=== PATIENT | male | born 1940 | race Caucasian/White ===

== ENCOUNTER 2023-01-31 07:55 | Outpatient (RCR) | payer MEDICARE, OTHER, SELFPAY ==
--- NOTE | 2023-01-31 13:44 | PT.OPEX ---
PT [place] Outpatient Eval PT [facility] Outpatient Eval Start: 01/31/23 09:14 Freq: Status: Active Protocol: Document 01/31/23 09:15 CHRYSTAL (Rec: 01/31/23 09:16 CHRYSTAL [id number]) E-signed By Addison Roca DPT, MS Physical Therapy Outpatient Evaluation Insurance Information Recert Due Date 05/01/23 Insurance Name Medicare B,[employer] Medical Diagnosis Lesion of sciatic nerve, unspecified lower limb; trochanteric bursitis of L hip . Treating Diagnosis L hip pain, decreased L LE flexibility and ROM, L LE weakness, gait dysfunction, imbalance. Subjective Subjective Pt is an 82 y.o. male who presents to PT with c/o L hip, gluteal and LS pain of insidious origin ~6-8 months ago. Had L JOHANN surgery at the [facility] in April 2021 and did not have PT following surgery. Describes sxs as sharp, shooting pain in his L gluteus olga lidia area which are intermittent, coming and going randomly. Feeling great the past 2 days with high level of sxs after performing heavier lifting and after walking on uneven surfaces. Describes himself as very active performing yardwork, working on his cars and plane rarely sitting throughout the day. Recent radiograph found the femoral component of his JOHANN appears loose with radiolucent lines in all zones. PMH also includes LS OA. AGGR factors: walking, carrying objects, stair climbing, standing, sleeping on L side, uneven surfaces. ALLEV factors: movement, rest. 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 Tightness in his L hip musculature combined with L LE weakness and imbalance appear to be leading to elevated sxs , especially considering how active he is. Emphasized importance of not pushing activities into pain. Excellent response to stretching and strengthening exercises with resolution of sxs following. He will benefit from continued skilled therapy to address these limitations. Primary Functional Limitations Walking, carrying objects, stair climbing, standing, sleeping on L side, uneven surfaces. Plan of Care Rehabilitation Potential Excellent Physical Therapy Goals Short-term goals to be completed in 4 weeks: 1. Pt will report improved quality of sleep waking <2x per night due to L hip pain. 2. Pt will display improved L LE strength as evidenced by performing >12 SLR of good quality to transition to amb without an AD. Long-term goals to be completed in 10 weeks: 1. Pt will be independent and compliant with HEP 2. Pt will display improved mechanics going up<>down 12 stairs with a reciprocal pattern using 1 railing to safely reach his bedroom. 3. Pt will display improved L hip flex, ABD and ext strength of 5/5 to improve quality of gait and kristan to yardwork/ chores. 4. Pt will report >75% improvement in LEFS questionnaire to significantly improve tolerance to functional activities. Coordination/Communication With Referral Source Treatment Plan/Direct Interventions Joint Mobilization,Manual Therapy,Neuromuscular Re-ed, Therapeutic Exercises Frequency/Duration 1x per week for least 6-10 visits, decreasing visit frequency as able. Patient Will Be Discharged From Therapy Completion of LTG(s),Skills Plateau,Independent w/HEP, Independently Progressing Evaluation Billing Untimed Code Treatment Minutes 22 Complexity Moderate Certification Information Initial Certification Date 01/31/23 Ending Certification Date 05/01/23 Provider Signature Shows Agreement With POC & Medical Necessity Physician Signature & Date Requested Please Sign/Date Here Physician Comment/Change : Physician NPI Number #
== END 2023-05-31 23:59 | disposition home or self-care (01) ==
PROVIDERS: Visit Provider Orthopaedic Surgery
DX: M70.62 Trochanteric bursitis, left hip (principal); G57.00 Lesion of sciatic nerve, unspecified lower limb; M25.552 Pain in left hip; R26.89 Other abnormalities of gait and mobility; R26.81 Unsteadiness on feet; Z51.89 Encounter for other specified aftercare
CPT/HCPCS: 97110; 97162

== ENCOUNTER 2024-05-21 10:56 | Outpatient (CLI) | payer OTHER, SELFPAY ==
--- OUTSIDE RECORDS SUMMARY | 2024-05-21 10:59 | XMS_ITS | Clinical Summary ---
Author Organization [facility] Address [address] [place] [address] Care Team Providers Care Care Worker Name Role Phone Unavailable Primary Care Provider Unavailabl e Source Comments Patient records contain information from all sites at [facility]. For routine questions regarding patient records, call [phone] during business hours, M-F 8:00 AM - 5:00 PM Central Time. Record requests for emergency care only can be directed to [phone] at any time.[facility] Allergies No known active allergies Medications Medication Sig Dispensed Refills Start Date End Date Status aspirin [address] tablet Take 81 mg by mouth. 08/09/2022 Active atorvastatin (Lipitor) 80 mg tablet Take 1 tablet by mouth daily. 10/30/2013 Active metoprolol tartrate (Lopressor) 50 mg tablet Take 50 mg by mouth. 05/24/2023 Active Active Problems Problem Noted Date Diagnosed Date Primary Malignant Neoplasm Of Prostate Cancer Staging:Clinical stage from 03/08/2024:Stage IIB(cT1c, cN0, cM0, PSA: 8.4, Grade Group: 2) - Unsigned Encounters Date Type Department Care Team Description 05/21/2024 9:12 AM CDT Hospital Encounter Department of Radiation Oncology in [place], [place] [address] [place] [phone] Sergio Foster M.D. Primary Malignant Neoplasm Of Prostate (HCC) (Primary Dx); Pain Hip Left 05/16/2024 11:15 AM CDT - 05/16/2024 11:59 PM CDT Hospital Encounter Department of Radiology in [place], [place] [address] [place] [address] Jesika Bragg P.A.-C., M.S. Primary Malignant Neoplasm Of Prostate (HCC) Discharge Disposition: Home or Self Care 05/16/2024 10:14 AM CDT - 05/16/2024 11:14 AM CDT Hospital Encounter Department of Laboratory Medicine in [place], [place] [address] [place] [address] Jesika Bragg P.A.-C., M.S. Primary Malignant Neoplasm Of Prostate (HCC) Discharge Disposition: Home or Self Care 05/09/2024 10:05 AM CDT - 05/18/2024 2:17 PM CDT Hospital Encounter Department of Radiation Oncology in [address] [phone] Sergio Foster M.D. Primary Malignant Neoplasm Of Prostate (HCC) (Primary Dx) from Last 3 Months Immunizations Name Administration Dates Next Due HZV (ZOSTAVAX) 10/10/2009 Influenza Split 08/20/2013 PPSV23 09/09/2008 Td, (Adult) Unspecified 09/09/2006 Family History Medical History Relation Name Comments Colon cancer Paternal Grandfather Relation Name Status Comments Father Paternal Grandfather Social History Tobacco Use Types Packs/Day Years Used Date Smoking Tobacco: Former Cigarettes 0.3 10 1 801 - 8246 Pipe Smokeless Tobacco: Never Tobacco Cessation:Counseling Given: Not Answered Dental Answer Date Recorded Dental: Regular Dentist Unknown 04/26/20 Sex and Gender Information Value Date Recorded Sex Assigned at Not on file Gender Identity Not on file Sexual Orientation Not on file Last Filed Vital Signs Vital Sign Reading Time Taken Comments Blood Pressure 141/58 05/21/2024 9:38 AM CDT Pulse 62 05/21/2024 9:38 AM CDT Temperature 36.6 ??C (97.8 ??F) 05/21/2024 9:38 AM CD T Respiratory Rate - - Oxygen Saturation - - Inhaled Oxygen Concentration - - Weight 64.9 kg (143 lb 1.3 oz) 05/21/2024 9:38 A M CDT Height 164.3 cm (5' 4.69) 10/30/2013 10:[address] Body Mass Index - - Plan of Treatment Health Maintenance Due Date Last Done Comments Depression Screening (Annual PHQ-2) 10/10/2023 Fall Risk Screen (Annual) 10/10/2023 COVID-19 Vaccine (6 - 2022-2 4 season) 2023 08/12/2023, 07/06/2022, 07/29/2021, Additional history exists DTaP,Tdap,and Td Vaccines (2 - Td or Tdap) 05/15/2024 05/15/2014, 09/26/2006, 09/09/2006, Additional history exists Influenza Vaccine (#1) 2024 , 07/06/2022, 06/24/2021, Additional history exists Pneumococcal vaccine (65+ years) Completed 01/08/2017, 01/02/2016, 09/26/2008, Additional history exists Zoster Vaccines Completed 04/16/2019, 10/2018, 11/05/2009, Additional history exists Procedures Procedure Name Priority Date/Time Associated Diagnosis Comments PET CT SKULL TO THIGH PSMA RAD - Routine (most inpatients and all outpatients) 05/16/2024 12:58 PM CDT Primary Malignant Neoplasm Of Prostate (HCC) TESTOSTERONE, TOTAL BY MASS SPECROMETRY, S Routine 05/16/2024 10:34 AM CDT Primary Malignant Neoplasm Of Prostate (HCC) PROSTATE-SPECIFIC AG (PSA) DIAGNOSTIC, S Routine 05/16/2024 10:34 AM CDT Primary Malignant Neoplasm Of Prostate (HCC) from Last 3 Months Results * PET CT Skull to Thigh PSMA (05/16/2024 12:58 PM CDT) Anatomical Region Laterality Modality Body, Nuclear Medicine PET R ST LOS, PET ARZ LOS, Nuclear Medicine PET FLA LOS, Nuclear Medicine N/A Positron Emission Tomography (PET) Impressions 05/16/2024 1:27 PM CDT 1. ??No PSMA PET evidence for localized or metastatic prostate disease. Narrative 05/16/2024 1:27 PM CDT EXAM: PET CT SKULL TO THIGH PSMA COMPARISON: None. Correlation from MRI of the prostate 01/24/2024 INDICATION: Unfavorable intermediate risk prostate cancer, staging. Initial treatment strategy. The patient reports no recent vaccinations. FINDINGS: Head and neck: No abnormal areas of hypermetabolism are demonstrated in the head or neck. CHEST: No abnormal areas of hypermetabolism are demonstrated in the chest. Background internal control mediastinal uptake measures 1.78. Abdomen/pelvis: No abnormal areas of hypermetabolism are demonstrated in the abdomen or pelvis. Specifically no increased uptake is demonstrated in the prostate gland itself. Skeleton: No abnormal areas of hypermetabolism are demonstrated in the visualized axial or appendicular skeleton. Other: No pneumothorax. No acute airspace opacity is observed. No small bowel or colon obstruction or pneumatosis. RADIOPHARMACEUTICAL/MEDS: Route: intravenous piflufolastat F 18 injection (Pylarify F-18),9.9 millicurie Procedure Note Mohan Sin M.D. - 05/16/2024 EXAM: PET CT SKULL TO THIGH PSMA COMPARISON: None. Correlation from MRI of the prostate 01/24/2024 INDICATION: Unfavorable intermediate risk prostate cancer, staging.Initial treatment strategy. The patient reports no recent vaccinations. FINDINGS: Head and neck: No abnormal areas of hypermetabolism are demonstrated inthe head or neck. CHEST: No abnormal areas of hypermetabolism are demonstrated in the chest.Background internal control mediastinal uptake measures 1.78. Abdomen/pelvis: No abnormal areas of hypermetabolism are demonstrated inthe abdomen or pelvis. Specifically no increased uptake is demonstrated inthe prostate gland itself. Skeleton: No abnormal areas of hypermetabolism are demonstrated in thevisualized axial or appendicular skeleton. Other: No pneumothorax. No acute airspace opacity is observed. No smallbowel or colon obstruction or pneumatosis. RADIOPHARMACEUTICAL/MEDS: Route: intravenous piflufolastat F 18 injection (Pylarify F-18),9.9 millicurie IMPRESSION: 1. No PSMA PET evidence for localized or metastatic prostate disease. Jesika Bragg P.A.-C., M.S. [facility] PROCEDU RES * Testosterone, Total by Mass Spectrometry, Serum (05/16/2024 10:34 AM CDT) Testosterone, Total by Mass Spectrometry, Serum 538 240 - 950 ng/dL 05/20/2024 3:07 PM CDT [facility] Comment: ----ADDITIONAL INFORMATION---- Testing performed by Liquid Chromatography-Tandem Mass Spectrometry (LC-MS/MS). This test was developed and its performance characteristics determined by [facility] in a manner consistent with CLIA requirements. This test has not been cleared or approved by the U.S. Food and Drug Administration. Blood (Blood, Venous) 05/16/2024 10:34 AM CDT 05/17/2024 8:56 AM CDT Jesika Bragg P.A.-C. M.S. LAB BLOOD NON ADD-ON [facility] [address] [place] [address] [facility] [address] [place] [address] [place] [address] * (ABNORMAL) PSA (Prostate-Specific Antigen), Diagnostic (05/16/2024 10:34 AM CDT) Pathologist [facility] Prostate-Specific Ag 8.3(H) <=7.2 ng/mL 05/16/2024 11:36 AM CDT [facility] Comment: ----ADDITIONAL INFORMATION---- The testing method is an electrochemiluminescence assay manufactured by [employer] and performed on the Modular or Marissa system. Values obtained with different assay methods or kits may be different and cannot be used interchangeably. Test results cannot be interpreted as absolute evidence for the presence or absence of malignant disease. Blood (Blood, Venous) 05/16/2024 10:34 AM CDT 05/16/2024 11:02 AM CDT Jesika Bragg P.A.-C., M.S. LAB BLOOD ADD- ON [facility] [address] [place] [address], [facility] [address] [place] [address] from Last 3 Months
--- OUTSIDE RECORDS SUMMARY | 2024-05-21 10:59 | XMS_ITS ---
Author Organization [facility] Address [address] [place] [address] Care Team Providers Care Master Electrician Name Role Phone Unavailable Unavailable Unavailable Surgery Details Not on file Complications Check Surgery Details section. Procedure Estimated Blood Loss Check Surgery Details section. Procedure Findings Check Surgery Details section. Procedure Specimens Taken Check Surgery Details section.
--- OUTSIDE RECORDS SUMMARY | 2024-05-21 10:59 | XMS_ITS | Encounter Summary ---
Author Organization [facility] Address [address] [place] [address] Care Team Providers Care Rat Poisoner Name Role Phone Unavailable Primary Care Provider Unavailabl e Reason for Referral * Outpatient (Routine) - Authorized Specialty Diagnoses / Procedures Referred By Contac t Referred To Contact Radiation Oncology Sergio Foster M.D. [address] [place] [address] [facility] Region Referral ID Status Reason Start Date Expiration Date V isits Requested Visits Authorized [id number] Authorized 05/21/2024 11/20/2025 1 1 Scheduling Instructions After visit with Dr. Gage to see if patient can proceed with radiotherapy to the prostate * Outpatient (Routine) - Authorized Specialty Diagnoses / Procedures Referred By Contac t Referred To Contact Diagnoses Pain Hip Left Procedures DX Hip Left 2-3 Views Sergio Foster M.D. [address] [place] [address] [facility] Region Referral ID Status Reason Start Date Expiration Date V isits Requested Visits Authorized [id number] Authorized 05/21/2024 05/21/2025 1 1 * Outpatient (Routine) - Authorized Specialty Diagnoses / Procedures Referred By Contac t Referred To Contact Orthopedic Surgery Diagnoses Pain Hip Left Sergio Foster M.D. [address] [place] [address] Jean Marie Gage M.D. [address] [place] [address] Referral ID Status Reason Start Date Expiration Date V isits Requested Visits Authorized [id number] Authorized 05/21/2024 11/20/2025 1 1 * Outpatient (Routine) - Closed Specialty Diagnoses / Procedures Referred By Contac t Referred To Contact Radiation Oncology Jesika Bragg P.A.-C., M.SAdriano [address] [place] [phone] Sergio Foster M.D. [address] [place] [phone] Referral ID Status Reason Start Date Expiration Date Visits Re quested Visits Authorized [id number] Closed 05/09/2024 11/08/2025 1 1 Scheduling Instructions PSA, testosterone, and PSMA PET-CT prior at [facility] Reason for Visit * Outpatient (Routine) - Closed Specialty Diagnoses / Procedures Referred By Contac t Referred To Contact Radiation Oncology Jesika Bragg P.A.-C., M.S. [address] [place] [phone] Sergio Foster M.D. [address] [place] [phone] Referral ID Status Reason Start Date Expiration Date Visits Re quested Visits Authorized [id number] Closed 05/09/2024 11/08/2025 1 1 Encounter Details Date Type Department Care Team (Latest Contact Info) Description 05/21/2024 9:12 AM CDT Hospital Encounter Department of Radiation Oncology in [place], [place] [address] [place] [address] Sergio Foster M.D. [address] [place] [address] Primary Malignant Neoplasm Of Prostate (HCC) (Primary Dx); Pain Hip Left Social History Tobacco Use Types Packs/Day Years Used Date Smoking Tobacco: Former Cigarettes 0.3 10 1 956 1965 Pipe Smokeless Tobacco: Never Dental Answer Date Recorded Dental: Regular Dentist Unknown 04/26/20 Sex and Gender Information Value Date Recorded Sex Assigned at Not on file Gender Identity Not on file Sexual Orientation Not on file documented as of this encounter Last Filed Vital Signs Vital Sign Reading Time Taken Comments Blood Pressure 141/58 05/21/2024 9:38 AM CDT Pulse 62 05/21/2024 9:38 AM CDT Temperature 36.6 ??C (97.8 ??F) 05/21/2024 9:38 AM CD T Respiratory Rate - - Oxygen Saturation - - Inhaled Oxygen Concentration - - Weight 64.9 kg (143 lb 1.3 oz) 05/21/2024 9:38 A M CDT Height - - Body Mass Index - - documented in this encounter Plan of Treatment Scheduled Orders Name Type Priority Associated Diagnoses Orde r Schedule DX Hip Left 2-3 Views Imaging RAD - Routine (most inpatients and all outpatients) Pain Hip Left Expected: 05/21/2024, Expires: 08/21/2025 Scheduled Referrals Name Type Priority Associated Diagnoses Order Schedule Radiation Oncology office visit (clinic) Outpatient Referral Routine Once for 1 Occurrences starting 05/21/2024 until 05/21/2024 External referral physician (non-[facility]) Outpatient Referral Routine Pain Hip Left Ordered: 05/21/2024 Radiation Oncology office visit (clinic) Outpatient Referral Routine Expected: (Approximate), Expires: 05/21/2025 documented as of this encounter Visit Diagnoses Diagnosis Primary Malignant Neoplasm Of Prostate (HCC)- Primary Pain Hip Left documented in this encounter
--- OUTSIDE RECORDS SUMMARY | 2024-05-21 10:59 | XMS_ITS | Referral Summary ---
Author Organization [facility] Address [address] [place] [address] Care Team Providers Care Wafer Fabrication Operator Name Role Phone Unavailable Primary Care Provider Unavailabl e Source Comments Patient records contain information from all sites at [facility]. For routine questions regarding patient records, call [phone] during business hours, M-F 8:00 AM - 5:00 PM Central Time. Record requests for emergency care only can be directed to [phone] at any time.[facility] Encounters Date Type Department Care Team Description 05/21/2024 9:12 AM CDT Hospital Encounter Department of Radiation Oncology in [address] [address] Sergio Foster M.D. Primary Malignant Neoplasm Of Prostate (HCC) (Primary Dx); Pain Hip Left 05/09/2024 10:05 AM CDT - 05/18/2024 2:17 PM CDT Hospital Encounter Department of Radiation Oncology in [address] [address] Sergio Foster M.D. Primary Malignant Neoplasm Of Prostate (HCC) (Primary Dx) 05/16/2024 10:14 AM CDT - 05/16/2024 11:14 AM CDT Hospital Encounter Department of Laboratory Medicine in [place], [place] [address] [place] [phone] Jesika Bragg P.A.-C., M.S. Primary Malignant Neoplasm Of Prostate (HCC) Discharge Disposition: Home or Self Care 05/16/2024 11:15 AM CDT - 05/16/2024 11:59 PM CDT Hospital Encounter Department of Radiology in [place], [place] [address] [place] [address] Jesika Bragg P.A.-C., M.S. Primary Malignant Neoplasm Of Prostate (HCC) Discharge Disposition: Home or Self Care from Last 3 Months Allergies No known active allergies Medications Medication [...] PSA: 8.4, Grade Group: 2) - Unsigned Immunizations Name Administration Dates Next Due HZV (ZOSTAVAX) 10/10/2009 Influenza Split 08/20/2013 PPSV23 09/09/2008 Td, (Adult) Unspecified 09/09/2006 Social History Tobacco Use Types Packs/Day Years Used Date Smoking Tobacco: Former Cigarettes 0.3 10 1 336 - 4042 Pipe Smokeless Tobacco: Never Tobacco Cessation:Counseling Given: [...] Mass Index - - Plan of Treatment Not on file Procedures Procedure Name Priority Date/Time Associated Diagnosis [...] localized or metastatic prostate disease. Jesika Bragg P.A.-C. M.S. [facility] [place] PROCEDU RES * Testosterone, Total by Mass Spectrometry, Serum (05/16/2024 10:34 AM CDT) [facility] Testosterone, Total by Mass Spectrometry, Serum 538 240 - 950 ng/dL 05/20/2024 3:07 PM CDT [facility] Comment: ----ADDITIONAL INFORMATION---- Testing performed by Liquid Chromatography-Tandem Mass Spectrometry (LC-MS/MS). This test was developed and its performance characteristics determined by [facility] in a manner consistent with CLIA requirements. This test has not been cleared or approved by the U.S. Food and Drug Administration. Blood (Blood, Venous) 05/16/2024 10:34 AM CDT 05/17/2024 8:56 AM CDT Jesika Bragg P.A.-C., M.S. LAB BLOOD NON ADD-ON [facility] [address] [place] [address] [facility] [address] [place] [address] [place] [address] * (ABNORMAL) PSA (Prostate-Specific Antigen), Diagnostic (05/16/2024 10:34 AM CDT) Prostate-Specific Ag 8.3(H) <=7.2 ng/mL 05/16/2024 11:36 AM CDT [facility] Comment: ----ADDITIONAL INFORMATION---- The testing method is an electrochemiluminescence assay manufactured by [employer] and performed on the Modular or Marissa system. Values obtained with different assay methods or kits may be different and cannot be used interchangeably. Test results cannot be interpreted as absolute evidence for the presence or absence of malignant disease. Blood (Blood, Venous) 05/16/2024 10:34 AM CDT 05/16/2024 11:02 AM CDT Jeiska Bragg P.A.-C., M.S. LAB BLOOD ADD- ON [facility] [address] [place] [address], [facility] NPRG [facility] [address] [place] [address] from Last 3 Months
--- OUTSIDE RECORDS SUMMARY | 2024-05-21 11:00 | XMS_ITS | Encounter Summary ---
Author Organization [facility] Address [address] [place] [id number] Care Team Providers Care Quality System Manager Name Role Phone Unavailable Primary Care Provider Unavailabl e Reason for Referral * Outpatient (Routine) - Closed Specialty Diagnoses / Procedures Referred By William blanca Referred To Contact Radiation Oncology Jesika Bragg P.A.-C., M.S. [address] [place] [phone] Sergio Foster M.D. [address] [place] [phone] Referral ID Status Reason Start Date Expiration Date Visits Re quested Visits Authorized [id number] Closed 05/09/2024 11/08/2025 1 1 Scheduling Instructions PSA, testosterone, and PSMA PET-CT prior at [facility] * MRI/CAT/PET Scan (Routine) - Closed Specialty Diagnoses / Procedures Referred By William t Referred To Contact Diagnoses Primary Malignant Neoplasm Of Prostate (HCC) Procedures PET CT Skull to Thigh PSMA Jesika Bragg P.A.-C., M.S. [address] [place] [phone] [facility] Region Referral ID Status Reason Start Date Expiration Date Visits Re quested Visits Authorized [id number] Closed 05/09/2024 05/09/2025 1 1 Reason for Visit * Appointment Request (Routine) - Closed Specialty Diagnoses / Procedures Referred By William blanca Referred To Contact Radiation Oncology Diagnoses Primary Malignant Neoplasm Of Prostate (HCC) Tonio Bhatt M.D. [address] [phone] Referral ID Status Reason Start Date Expiration Date Visits Re quested Visits Authorized [id number] Closed 04/26/2024 04/26/2025 1 1 Encounter Details Date Type Department Care Team (Latest Contact Info) Description 05/09/2024 10:05 AM CDT - 05/18/2024 2:17 PM CDT Hospital Encounter Department of Radiation Oncology in [place], [place] [address] [place] [phone] Sergio Foster M.D. [address] [place] [phone] Primary Malignant Neoplasm Of Prostate (HCC) (Primary Dx) Social History Tobacco Use Types Packs/Day Years Used Date Smoking Tobacco: Former Cigarettes 0.3 10 1 290 - 8476 Pipe Smokeless Tobacco: Never Tobacco Cessation:Counseling Given: Not Answered Dental Answer Date Recorded Dental: Regular Dentist Unknown 04/26/20 Sex and Gender Information Value Date Recorded Sex Assigned at Not on file Gender Identity Not on file Sexual Orientation Not on file documented as of this encounter Last Filed Vital Signs Vital Sign Reading Time Taken Comments Blood Pressure 125/59 05/09/2024 10:24 AM CDT Pulse 71 05/09/2024 10:24 AM CDT Temperature 36.6 ??C (97.9 ??F) 05/09/2024 10:24 AM C DT Respiratory Rate - - Oxygen Saturation - - Inhaled Oxygen Concentration - - Weight 64.1 kg (141 lb 5 oz) 05/09/2024 10:24 AM CDT Height - - Body Mass Index - - documented in this encounter Medications at Time of Discharge Medication Sig Dispensed Refills Start Date End Date aspirin [address] tablet Take 81 mg by mouth. 2 atorvastatin (Lipitor) 80 mg tablet Take 1 tablet by mouth daily. 10/30/2013 metoprolol tartrate (Lopressor) 50 mg tablet Take 50 mg by mouth. 05/24/20 23 documented as of this encounter Consult Notes * Jesika Bragg P.A.-C., M.S. - 05/09/2024 10:30 AM CDT SUBJECTIVE REQUESTING PROVIDER Tonio Bhatt M.D. CHIEF COMPLAINT/REASON FOR CONSULT 1. Primary Malignant Neoplasm Of Prostate (HCC) SUPERVISED BY: Sergio Foster M.D. ([phone]) HISTORY OF PRESENT ILLNESS Mr. Rudy May is an 83-year-old male with prostate cancer, who presents today for an opinion regarding the role of radiation therapy in the management of the patient's disease. His oncologic history is as follows: Oncology History Primary Malignant Neoplasm Of Prostate (HCC) 09/26/2018 Other 09/26/2018: PSA 1.93 ng/mL 09/13/2022: PSA 5.15 ng/mL 06/10/2023: PSA 6.55 ng/mL 08/29/2023: PSA 6.43 ng/mL 11/29/2023: PSA 8.37 ng/mL 01/04/2024 Other Urology appointment with Dr. Tonio Bhatt. LENA demonstrated a moderately enlarged prostate with a firm anatomic ridge along the left lateral gland tracking down to the apex, indeterminate, no obvious nodules. Recommended proceeding with a prostate MRI. 01/24/2024 Critical Imaging MR Prostate Impression: 1. PI-RADS 5 lesion in the right peripheral zone. Estimated volume = 36 cc. 2.0 x 1.2 x 1.2 cm lesion in the right peripheral zone at the level of the apex at the 6 to 7 o`clock position shows decreased ADC and increased DWI signal. PI- RADS version 2 classification = 5. suspicious for prostate cancer. No extracapsular extension or seminal vesicle invasion. No cori-prostatic or pelvic side wall lymph nodes. No other bony or soft tissue abnormalities identified. 03/08/2024 Biopsy/Pathology Prostate biopsy was performed by Dr. Bhatt. A. Left prostate biopsy Adenocarcinoma of prostate Marquette Score 3+4=7 Involving 20-85% of the length of the cores Perineural Invasion Not Seen B. Right prostate biopsy Adenocarcinoma of prostate Yesika Score 3+4=7 Involving 40-80% of the length of the cores Perineural Invasion Not Seen PIN4 staining shows negative basal markers with positive p504s C. Lesion 1 Adenocarcinoma of prostate Yesika Score 3+3=6 Involving 75-80% of the length of two cores Perineural Invasion Not Seen 12/12 cores positive (per [facility]) 04/02/[address] 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 Management options were discussed including active surveillance, radical prostatectomy, radiation therapy, cryotherapy, and androgen deprivation therapy. The patient was interested in external beam radiation. Referral to Radiation Oncology in [place]. INTERVAL HISTORY: The patient was seen and examined today with Dr. Foster. The patient reports good energy. He stays active taking care of the yard and gardening. He reports good urination overall, but did comment on the stream being a little slower. He feels that he empties his bladder well. He denies urinary incontinence, dysuria, hematuria, or nocturia. He averages onebowel movement per day. He reports chronic left hip pain that comes and goes. He has had previous left hip surgery. He denies new bone pain. He reports pre-existing erectile dysfunction. The patient reports memory loss that has gotten worse over the years. He reports that he still does everything on his own. He denies any situations where he has gotten lost and hasn't been able to find his way tohis destination. The patient denies a history of prior radiation therapy, connective tissue disorders, or inflammatory bowel disease. His ECOG performance status is 1. PATIENT COMPLETED QUESTIONNAIRES: AUA 05/09/2024: 6 (3, 1, 0, 1, 0, 0, 1) IIEF-5 05/09/2024: 7 (2, 2, 1, 1, 1) - severe ED REVIEW OF SYSTEMS Review of systems was negative except as documented above. MEDICAL HISTORY Past Medical History: Diagnosis Date Benign Prostatic Hyperplasia Without Obstruction Coronary Artery Disease NOS Dysfunction Erectile Gastroesophageal Reflux Disease Hemorrhoids Internal Hernia Inguinal Bilateral Hyperlipidemia Impaired Glucose Tolerance Loss Memory Short Term Primary Malignant Neoplasm Of Prostate (HCC) Stenosis Carotid Artery Left SURGICAL HISTORY Past Surgical History: Procedure Laterality Date INGUINAL HERNIA REPAIR Bilateral 11/29/2022 ROTATOR CUFF REPAIR Left TOTAL HIP ARTHROPLASTY Left FAMILY HISTORY Family History Problem Relation Name Age of Onset Colon cancer Paternal Grandfather SOCIAL HISTORY Social History Socioeconomic History Marital status: Spouse name: Kesha Number of children: 2 Tobacco Use Smoking status: Former Current packs/day: 0.00 Average packs/day: 0.3 packs/day for 10.0 years (3.0 ttl pk-yrs) Types: Cigarettes, Pipe Start date: 1955 Quit date: 1965 Years since quittin.6 Smokeless tobacco: Never Social History Narrative He is to his , Kesha. They have 2 children, 9 grandchildren, and 2 great-grandchildren.They live in [place], [place] at the [facility] and he has an airplane. 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 He is a . OBJECTIVE BP 125/59 (BP Location: Right arm, Patient Position: Sitting, Cuff Size: Regular) Pulse 71 Temp36.6 ??C (Temporal) Wt 64.1 kg PHYSICAL EXAMINATION General: Alert and oriented, in no apparent distress. The patient demonstrated difficulty with memory throughout the encounter today. He answered the majority of questions independently. The patient is here today with his , Kesha, who assisted him in answering some questions or correcting his answers if they were not accurate. Heart: Regular rate and rhythm. Lungs: Clear to auscultation bilaterally. ASSESSMENT / PLAN #1 Stage IIB (cT1c, cN0, cM0, PSA: 8.4, Grade Group: 2) adenocarcinoma of the prostate #2 Memory loss I had a discussion with the patient and his regarding his prostate cancer diagnosis. We reviewed his oncologic history as detailed above. We discussed that he has unfavorable intermediate risk prostate cancer. We reviewed the NCCN guidelines. We discussed the recommendation for additional evaluation with a PSMA PET-CT scan. We also discussed the risks, benefits, and alternatives of radiotherapy in this setting. Dr. Foster offered radiation therapy treatment options including external beam radiation therapy in 20 or 26fractions or stereotactic body radiation therapy in 5 fractions. We discussed fiducial markers and rectal spacer placement, which would be required with SBRT treatment. In addition, he recommended androgen deprivation therapy for 4-6 months, which could be considered optional. We discussed that treatment recommendations could change depending on the result of the PSMA PET-CT scan. I discussed the logistics and provided an overview of the acute side effects of radiotherapy today.The acute side effects are common and include, but are not limited to, urinary frequency and urgency, dysuria, obstruction, hematuria, urinary incontinence, bowel frequency and urgency, diarrhea, gaseous bloating and discomfort, hemorrhoidal bleeding/irritation, erectile dysfunction, radiation dermatitis, loss of pubic hair, and fatigue. I also discussed the side effects of androgen deprivation therapy, which include, but are not limited to, hot flashes, fatigue, bone loss with prolonged use, mood changes, gynecomastia, loss of muscle strength and power, increased risk of cardiovascular events, increased risk of dementia/Alzheimer's disease, and complete loss of erectile function until his testosterone levels normalize. The patient was provided with a written summary of recommendations. Iexplained that side effects of radiation treatment would be reviewed again and in more detail priorto making any treatment decisions. His questions were answered to his verbalized satisfaction. We reviewed recommendations for next steps including PSA and testosterone lab work and a PSMA PET-CT scan. The patient was agreeable to have the lab work and imaging done at [facility] and orders were placed. We also ordered for a return visit to be scheduled here following the testing to review the results. Dr. Foster also met with the patient today, please see his attestation for details. The patient was provided with our contact information. He will contact us with questions or concerns. He verbally expressed his understanding of the plan. EDUCATION: Ready to learn, the patient demonstrated difficulty with memory throughout the encounter today, no other learning barriers were identified; learning preferences include listening. Explained diagnosisand treatment plan; patient expressed understanding of the content. PRIMARY PROVIDER Joey Lopez M.D. and Dr. Cece Baig at the DC in [place] I personally spent 55 minutes in care of the patient today. Time includes both non face to face andface to face patient care. Signed by: Jesika Bragg P.A.-C., M.S. 05/09/2024 12:49 PM CDT [facility] [address] [place] [address] Associated attestation - Sergio Foster M.D. - 05/18/2024 2:13 PM CDT I saw and evaluated the patient and participated in the alanis portions of the service. I reviewed thedocumentation of Jesika Bragg P.A.-C. and agree with the findings and plan. Mr. Rudy May is an 83 y.o. male with unfavorable intermediate risk, stage IIB (cT1c, cN0, cM0, PSA: 8.4, Grade Group: 2) adenocarcinoma of the prostate. We are asked by Dr. Bhatt to evaluate the patient for radiotherapy. His oncologic history is well-detailed in Ms. Bragg's note. In brief, PSA of 8.37 ng/mL on November 29, 2023 prompted a consultation with Dr. Bhatt on January 04, 2024. Digital rectal exam revealed a palpable ridge along the left lateral gland. MRI of the prostate on January 24, 2024 revealed a 2.0 cm, PI-RADS 5 lesion in the right peripheral zone at the apex. There was no extracapsular extension, seminal vesicle invasion, suspicious lymph nodes, or worrisome bone lesions. Prostate biopsy by Dr. Bhatt on March 08, 2024 revealed Yesika 3 + 4 disease in the left and the right as well as Marquette 3+ 3 disease in the MRI guided biopsy of the lesion. All 12 biopsy cores of 12 were positive. The patient reports some slowness of stream but no other urinary issues with no incontinence. Typically has 1 bowel movement per day. He has had history is was short-term memory for several years that are slowly getting worse.. The patient's ECOG performance status is 1. OBJECTIVE BP 125/59 (BP Location: Right arm, Patient Position: Sitting, Cuff Size: Regular) Pulse 71 Temp36.6 ??C (Temporal) Wt 64.1 kg PHYSICAL EXAM General: Patient is awake, alert, and oriented to person, place, and time. No apparent distress. The patient is here today with his Kesha. Remainder is as per Ms. Bragg's note. DIAGNOSTICS I reviewed the patient's pathology reports and imaging. ASSESSMENT / PLAN #1 Stage IIB (cT1c, cN0, cM0, PSA: 8.4, Grade Group: 2) adenocarcinoma of the prostate #2 Memory loss/dementia I had a detailed discussion with the patient and his regarding the risks, benefits, and alternatives of radiotherapy in this setting. I consulted the NCCN guidelines in formulating my recommendations and reviewed these with him. The patient has already discussed prostatectomy with Dr. Bhatt;hence, I focused my discussion on radiotherapy options. These include: 1. External beam radiotherapy alone to a dose of 60 Gy in 20 fractions or 70.2 Gy in 26 fractions utilizing IMRT; 2. Stereotactic body radiation therapy to a dose of 36.25 to 40 Gy in 5 fractions. I do not recommend brachytherapy given his age. Given his unfavorable-intermediate risk disease, I would typically recommend 4-6 months of androgendeprivation therapy. However, his could certainly worsen his memory difficulties. Because of that, I do think that it is optional. We will obtain a PSMA PET/CT scan to rule out other areas of disease. We discussed the use of a Hydrogel spacer. I discussed the logistics as well as the acute and chronic side effects associated with treatment in detail. For a complete listing of these, please see 's note. After this discussion, I provided the patient with a written summary of my recommendations. His questions and those of his spouse were answered to their verbalized satisfaction. The patient verbally stated that he would like to proceed with treatment. He will return after a PSA, testosterone level,and PSMA PET/CT scan at [facility] discuss the results and a finalize his plan of care. My thanks to Drs. Bhatt, Jovanni, and John for the opportunity to participate in this patient's care. I have spent 40 minutes caring for this patient including [id number]-ts-[id number] and ont-eask-bl-face time Signed by: Sergio Foster M.D. 05/18/24 2:13 PM CDT [facility] [place] documented in this encounter Miscellaneous Notes * Addendum Note - Irina Martines C.NAdrianoA. - 05/09/2024 10:30 AM CDTEncounter addended by: Irina Martines C.NPretty on: 05/21/2024 7:09 AM Actions taken: Letter saved documented in this encounter Plan of Treatment Scheduled Referrals Name Type Priority Associated Diagnoses Orde r Schedule Radiation Oncology office visit (clinic) Outpatient Referral Routine Expected: 05/23/2024, Expires: 08/09/2025 documented as of this encounter Results * PET CT Skull to Thigh [...] metastatic prostate disease. Jesika Bragg P.A.-C. M.S. [facility] PROCEDU RES * Testosterone, Total by Mass Spectrometry, Serum (05/16/2024 10:34 AM CDT) Pathologist [facility] Testosterone, Total by Mass Spectrometry, Serum 538 240 - 950 ng/dL 05/20/2024 3:07 PM CDT [facility] Comment: ----ADDITIONAL INFORMATION---- Testing performed by Liquid Chromatography-Tandem Mass Spectrometry (LC-MS/MS). This test was developed and its performance characteristics determined by [facility] in a manner consistent with CLIA requirements. This test has not been cleared or approved by the U.S. Food and Drug Administration. Blood (Blood, Venous) 05/16/2024 10:34 AM CDT 05/17/2024 8:56 AM CDT Jesika Bragg P.A.-C., M.S. LAB BLOOD NON ADD-ON [facility] [address] [place] [address] [facility] [address] [place] [address] [place] [address] * (ABNORMAL) PSA (Prostate-Specific Antigen), Diagnostic (05/16/2024 [...] Bragg P.A.-C., M.S. LAB BLOOD ADD- ON [facility] [address] [place] [address], [facility] [address] [place] [address] documented in this encounter Visit Diagnoses Diagnosis Primary Malignant Neoplasm Of Prostate (HCC)- Primary Primary Malignant Neoplasm Of Prostate (HCC) documented in this encounter
--- OUTSIDE RECORDS SUMMARY | 2024-05-21 11:00 | XMS_ITS | Encounter Summary ---
Author Name [facility] Organization [facility] Address [address] [place] [address] Care Team Providers Care Litigator Name Role Phone GERRY FELICIANO Primary Care Provider Unavaila ble Insurance Providers: All historical and current Section Date Range: From patient's date of to the date document was created. This section includes the names of all active insurance providers for the patient. Insurance Provider Type of Coverage Plan Name Start of Policy Coverage End of Policy Coverage Group Number Member ID Insurance Provider's Telephone Number Policy Dia's Name Patient's Relationship to Policy Dia [employer] ([facility]) MEDICARE ADVANTAGE MCR ([facility]) Oct 10, 2021 [id number] KLEPPERIC H,ARAMIS PATIENT HUMANA MCR ([facility]) MEDICARE [facility] ([facility]) Oct 10, 2017 [id number] KLEPPERIC H,ARAMIS PATIENT HUMANA MCR ([facility]) MEDICARE [facility] ([facility]) Oct 10, 2017 [id number] KLEPPERIC H,ARAMIS PATIENT MEDICA MCR ([facility]) MEDICARE ADVANTAGE MCR ([facility]) Oct 10, 2022 [id number] KLEPPERIC H,ARAMIS PATIENT Selected Encounter This section includes the information on record at [place] for the Encounter. Date/Time Encounter Type Encounter Description Reason Provider Source Aug 09, 2023 09:00 AM OFFICE O/P EST MOD 30-39 MIN PRIMARY CARE/MEDICINE ICD-10-CM Z00.8 Encounter for other general examination KATHRYN FELICIANO E Encounter Template Text not used by [place] Assessments - Encounter Diagnoses This section includes the primary and secondary diagnoses documented for the Encounter. Date/Time Primary/Secondary Diagnosis Diagnosis Name Provider Source Aug 09, 2023 09:38 AM PRIMARY Encounter for other general examination KATHRYN FELICIANO [facility] Aug 09, 2023 09:38 AM SECONDARY Essential (primary) hypertension KATHRYN FELICIANO [facility] Aug 09, 2023 09:38 AM SECONDARY Hyperlipidemia, unspecified KATHRYN FELICIANO Plan of Treatment: Future Appointments (+ 6 months) and Future Tests (+/- 45 days) The Plan of Treatment section includes future care activities for the patient from all [place] treatmentfacilities. This section includes future appointments and future orders which are active, pending or scheduled. Future Appointments This section includes appointments that were scheduled to occur 6 months from the date of the Encounter, up to a maximum of 20 appointments. The data comes from all [place] treatment facilities. Appointment Date/Time Appointment Type Appointme nt Facility Name Aug 12, 2023 01:00 PM AMBULATORY - NONE [facility] Lab Results: +/- 30 days of the encounter This section includes the Chemistry and Hematology Lab Results on record with [place] for the patient. Radiology Reports and Pathology Reports are provided separately, in subsequent sections. Lab Results This section contains the Chemistry/Hematology Results that were resulted 30 days before or 30 daysafter the date of the Encounter. Date/Time Source Result Type Result - Unit Interpretation Reference Range Comment Aug 09, 2023 09:36 AM TONY HIGUERA COMPREHENSIVE METABOLIC PANEL+MG Specimen Type: PLASMA No comment entered. Ordering Provider: KATHRYN FELICIANO Report Released Date/Time: Aug 09, 2023 09:29 AM Reporting Lab: [facility] [id number] Performing Lab: [facility] [id number] CREATININE 0.8 mg/dL 0.7-1.2 UREA NITROGEN 16 mg/dL 8-26 GLUCOSE 136 mg/dL H 70-100 SODIUM 140 mmol/L 136-145 POTASSIUM 4.2 mmol/L 3.5-5.1 CHLORIDE 108 mmol/L H 98-107 CO2 24 mmol/L 22-29 CALCIUM 9.1 mg/dL 8.4-10.2 PROTEIN,TOTAL 6.4 g/dL 6.0-8.3 ALBUMIN 3.9 g/dL 3.5-5.2 BILIRUBIN, TOTAL 0.9 mg/dL 0.2-1.2 MAGNESIUM 1.8 mg/dL 1.6-2.6 ANION GAP 8 mmol/L 5-15 ALKALINE PHOSPHATASE 71 U/L 40-150 ALT/SGPT 20 U/L <55 AST/SGOT 23 U/L <34 .CREAT EGFR(CKD-EPI) 88 >60 Aug 09, 2023 09:36 AM [facility] CBC & DIFF Specimen Type: BLOOD Comment: Automated Differential Performed Ordering Provider: KATHRYN FELICIANO Report Released Date/Time: Aug 09, 2023 09:29 AM Reporting Lab: [facility] [id number] Performing Lab: [facility] [id number] WBC 5.68 10*3/uL 4.0-11.0 RBC 4.63 10*6/uL 4.6-6.2 HGB 15.5 g/dL 13.5-17.9 HCT 45.3 41-54 MCV 97.8 fL 80-100 MCH 33.5 pg H 27-33 MCHC 34.2 g/dL 32.0-37.5 PLT 191 10*3/uL 150-400 MPV 9.4 fL 7.4-10.4 NEUT 62.9 40.0-80.0 LYMPHS 27.6 15.0-45.0 MONO 7.4 2.0-12.0 EOSINO 0.7 0.0-6.0 BASO 0.7 0.0-2.0 RDW 12.5 11.5-14.5 ABS LYMPH 1.57 10*3/uL 1.0-4.0 ABS MONO 0.42 10*3/uL 0.1-1.0 ABS NEUT 3.57 10*3/uL 2.0-7.7 ABS EOS 0.04 10*3/uL 0-0.5 ABS BASO 0.04 10*3/uL 0-0.2 IG(META,MYELO,P RO) 0.7 ABS IMMATURE GRAN 0.04 10*3/uL 0-0.1 Vital Signs: All taken on the encounter date This section contains inpatient and outpatient Vital Signs collected on the date of the Encounter. Date/Time Temperature Pulse Blood Pressure Respiratory Rate SP02 Pain Height Weight Body Mass Index Source Aug 09, 2023 09:15 AM 98 F 67 /min 131/65 mm[Hg] 16 /min 96 % 0 64.5 in 147 lb 25 [facility] Social History: Smoking Status (Most current) and Tobacco Use (All prior to encounter date) This section includes the most current, and the historical, smoking and tobacco- related health factors from the [place] facility where the Encounter took place. Current Smoking Status This section includes the most current smoking, or tobacco-related health factor, from the [place] facility where the Encounter took place. Date/Time Current Smoking Status Comment Facil ity Aug 09, 2023 09:00 AM VA-TOBACCO NEVER USED [facility] Tobacco Use History This section includes a history of the smoking, or tobacco-related health factors, that were collected on or before the date of the Encounter. The data comes from the [place] facility where the Encounter took place. Date/Time Smoking Status/Tobacco Use Comment F acility Aug 09, 2022 09:30 AM VA-TOBACCO FORMER USER [facility] Aug 09, 2022 09:30 AM VA-TOBACCO QUIT 15 YRS OR MORE [facility] Jan 10, 2019 10:36 AM VA-TOBACCO FORMER USER [facility] Jan 10, 2019 10:36 AM VA-TOBACCO QUIT 15 YRS OR MORE [facility] February 10, 2018 09:26 AM FORMER TOBACCO USER 7Y OR GREATE R [facility] February 15, 2017 09:06 AM FORMER TOBACCO USER 7Y OR GREATE R [facility] Jan 02, 2016 04:35 AM FORMER TOBACCO USER 7Y OR GREATE R [facility] February 17, 2015 06:49 AM FORMER TOBACCO USER 7Y OR GREATE R [facility] Advance Directives: All historical and current Section Date Range: From patient's date of to the date document was created. This section includes ALL of a patient's completed or amended VA Advance and Rescinded Directives. The entries below indicate that a directive exists for the patient, but an actual copy is not included with this document. The data comes from all [place] facilities. Date Advance Directives Provider Source May 16, 2019 ADVANCE DIRECTIVE [facility] May 16, 2019 ADVANCE DIRECTIVE DISCUSSION [facility] Oct 20, 2015 CLINICAL WARNING [facility] Encounter Notes: All associated encounter notes This section contains the clinical notes associated to the Encounter. Date/Time Encounter Note(s) Provider Source Aug 10, 2023 08:36 AM LETTERS: LOCAL TITLE: FOLLOW UP RESULTS LETTER STANDARD TITLE: LETTERS DATE OF NOTE: AUG 10, 2023@08:36 ENTRY DATE: AUG 10, 2023@08:36:53 AUTHOR: GERRY FELICIANO COSIGNER: URGENCY: STATUS: COMPLETED [facility] [address] [place] [address] Aug [facility]AMIS YANELY [facility] [address] [facility] [id number] Dear [place]: I am writing to inform you of the results of testing that you had done recently at the [facility]. - Complete Blood Count (red/white blood cell counts and platelets) White count: WBC 5.68 (08/09/23) (normal is 4.0-11.0) Hemoglobin: HGB 15.5 (08/09/23) (normal Male is 13.5-17.9; Female is 11.5-16) Hematocrit: HCT 45.3 (08/09/23) (normal Male is 41-54; Female is 34.5- 48) Platelets: PLT 191 (08/09/23) (normal is 150-400) - Electrolytes including sodium and potassium SODIUM 140 (08/09/23) (normal is 136-145) POTASSIUM 4.2 (08/09/23) (normal is 3.5-5.1) - Calcium CALCIUM 9.1 (08/09/23) (normal is 8.5-10.1) - Kidney function CREATININE 0.8 (08/09/23)(normal Male = less than 1.2; normal Female = less than 1.0)) UREA NITROGEN 16 (08/09/23) (normal Male is 8-26; normal Female is 10- 20) - Blood Sugar GLUCOSE 136 H (08/09/23) (normal is 70 - 100 if fasting) - Liver function Tests AST/SGOT 23 (08/09/23) (normal 15-37) ALT/SGPT 20 (08/09/23) (normal 13-61) ALK PHOSPHATASE 71 (08/09/23) (normal 45-117) BILIRUBIN, TOTAL 0.9 (08/09/23) (normal 0.2-1.0) - Hemoglobin A1C (normal 4.0-6.0) Collection DT Spec HGBA1C 08/09/2022 10:36 BLOOD 5.8 12/26/2020 10:06 BLOOD 5.9 02/07/2019 10:45 BLOOD 5.9 Additional Comments: Everythign looks good. If you have any further questions or problems, please contact our nursing staff or provider at the following number: [phone]. Sincerely, GERRY FELICIANO PHYSICIAN [facility] Aug 09, 2023 09:38 AM MEDICATION MGT NOT E: LOCAL TITLE: MEDICATION RECONCILIATION NOTE STANDARD TITLE: MEDICATION MGT NOTE DATE OF NOTE: AUG 09, 2023@09:38 ENTRY DATE: AUG 09, 2023@09:38:25 AUTHOR: GERRY FELICIANO EXP COSIGNER: URGENCY: STATUS: COMPLETED MEDICATION RECONCILIATION Active Outpatient Medications (excluding Supplies): Outpatient Medications Status 1) ATORVASTATIN CALCIUM 80MG TAB TAKE ONE-HALF TABLET BY ACTIVE MOUTH EVERY DAY 2) METOPROLOL TARTRATE 50MG TAB TAKE ONE TABLET BY MOUTH ACTIVE TWICE A DAY FOR BLOOD PRESSURE AND HEART RHYTHM Non-VA Medications Status 1) Non-VA ASPIRIN 81MG EC TAB 81MG MOUTH ACTIVE 3 Total Medications Medications listed above are accurate and should continue as ordered. /zander/ GERRY FELICIANO PHYSICIAN Signed: 08/09/2023 09:38 GERRY FELICIANO [facility] Aug 09, 2023 09:24 AM [facility] NOTE: LOCAL TITLE: [facility] NURSING PROGRESS NOTE STANDARD TITLE: PRIMARY CARE NURSING NOTE DATE OF NOTE: AUG 09, 2023@09:24 ENTRY DATE: AUG 09, 2023@09:24:55 AUTHOR: ARMIDA PAYNE EXP COSIGNER: URGENCY: STATUS: COMPLETED TYPE OF VISIT: Appointment Check In Type of appointment: In-person appointment REASON FOR VISIT: Annual ALLERGIES: Patient has answered NKA VITAL SIGNS: Blood Pressure: 131/65 (08/09/2023 09:15) Pulse: 67 (08/09/2023 09:15) Respiration: 16 (08/09/2023 09:15) Temperature: 98 F [36.7 C] (08/09/2023 09:15) Weight: 147 lb [66.68 kg] (08/09/2023 09:15) Height: 64.5 in [163.8 cm] (08/09/2023 09:15) BMI: 24.9 O2 Sat: 96% (08/09/2023 09:15) Pain: 0 (08/09/2023 09:15) PAIN SCREEN: Patient is having significant pain that they would like to talk to their provider about today. Old (Chronic) (began more than 6 months ago) Patient states their average pain this past week is 5 Patient states the average number on how the chronic pain affects their enjoyment of life the past week is 5 Patient states during the past week the average number on how the pain has interfered with their general activity is 5 MEDICATION Active Outpatient Medications (including Supplies): ATORVASTATIN CALCIUM 80MG TAB TAKE ONE-HALF TABLET BY ACTIVE MOUTH EVERY DAY METOPROLOL TARTRATE 50MG TAB TAKE ONE TABLET BY MOUTH ACTIVE TWICE A DAY FOR BLOOD PRESSURE AND HEART RHYTHM Non-VA ASPIRIN 81MG EC TAB 81MG MOUTH ACTIVE Over the Counter/Herbal Medications: The patient states that they take some outside medications and/or herbals. 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 The [place]/caregiver was informed that we will continue to ask this screening question every 5 years. They can contact their provider/healthcare team if they have concerns about exposures and would like to be screened sooner. Printed information was offered and provided if desired. ADV DIR Notification and Screening: ADVANCE DIRECTIVE NOTIFICATION: Patient was given written notification of the following rights: 1. Accept or refuse any medical treatment. 2. Complete a durable power of workers compensation defense attorney for health care. 3. Complete a living will. ADVANCE DIRECTIVE SCREENING: Does patient have an Advance Directive? The patient has an Advance Directive. Does the patient wish to make any changes or revoke their current Advance Directive? No changes requested at this time. Suicide Screen: C-SSRS Screening [place] Suicide Severity Rating Scale (C-SSRS) screener 1. Over the past month, have you wished you were or wished you could go to sleep and not wake up? No 2. Over the past month, have you had any actual thoughts of killing yourself? No 3. Over the past month, have you been thinking about how you might do this? Response not required due to responses to other questions. 4. Over the past month, have you had these thoughts and had some intention of acting on them? Response not required due to responses to other questions. 5. Over the past month, have you started to work out or worked out the details of how to kill yourself? Response not required due to responses to other questions. 6. If yes, at any time in the past month did you intend to carry out this plan? Response not required due to responses to other questions. 7. In your lifetime, have you ever done anything, started to do anything, or prepared to do anything to end your life (for example, collected pills, obtained a gun, gave away valuables, went to the roof but didn't jump)? No 8. If YES, was this within the past 3 months? Response not required due to responses to other questions. Depression Screening: Perform PHQ-2 A PHQ-2 screen was performed. The score was 0 which is a negative screen for depression. Over the past two weeks, how often have you been bothered by the following problems? 1. Little interest or pleasure in doing things Not at all 2. Feeling down, depressed, or hopeless Not at all Alcohol Use Screen (AUDIT-C): Alcohol Screen: SCREEN FOR ALCOHOL (AUDIT-C) An alcohol screening test (AUDIT-C) was negative (score=4). 1. How often did you have a drink containing alcohol in the past year? daily with dinner 2. How many drinks containing alcohol did you have on a typical day when you were drinking in the past year? One or two drinks 3. How often did you have six or more drinks on one occasion in the past year? Never Tobacco Use Screening: The patient has never used tobacco. Nursing Annual Screening: Fall History Screen During the past 12 months, have you had any falls? Patient does not report any falls in the past 12 months. MEDICATIONS: Patient is on one of the following medication classes: Antihypertensives, Antidepressants, Antipsychotics, Diuretics, or Controlled substance medication used for pain. FALL RISK ADVICE: Fall Risk Advice provided. Handout entitled Fall Prevention At Home reviewed and given to patient and/or significant other. Script Talk Screen Are you able to read your prescription bottles with your glasses, magnifiers or other aids? Yes or patient not taking any prescriptions. Skin Screen Patient reports any current pressure ulcers, a history of pressure ulcers, or a wound from a medical administrator or Patient is bed-confined or a wheelchair-user or Patient requires assistance to transfer/change position No, Skin Screen is Negative Home Abuse/Violence Screen Is your home free of abuse and violence? Yes MOVE! Program Screen Body Mass Index (BMI)= 24.9 [place]: Collection DT Specimen Test Name Result Units Ref Range 08/09/2022 10:36 BLOOD !! HEMOGLOBIN A1C 5.8 % 4.0 - 6.0 !! Indicates COMMENTS AVAILABLE...Refer to Interim Lab Report. [place] Hgb A1C: No data available [place] Hgb A1C: No data available Point of Care Hgb A1C: POC HGB A1C____ Outpatient Nutrition Screen Body Mass Index (BMI)= 24.9 [place]: Collection DT Specimen Test Name Result Units Ref Range 08/09/2022 10:36 BLOOD !! HEMOGLOBIN A1C 5.8 % 4.0 - 6.0 !! Indicates COMMENTS AVAILABLE...Refer to Interim Lab Report. [place] Hgb A1C: No data available [place] Hgb A1C: No data available Point of Care Hgb A1C: POC HGB A1C____ Is patient's BMI less than 18.5? No Does patient have swallowing, coughing, or chewing problems affecting oral intake? No Has patient experienced unplanned weight loss or gain greater than 10 pounds over the last 2 months? No Is patient's Hgb A1C (Glycosylated Hemoglobin) greater than 9.5? Information not available Is patient receiving Total Parenteral Nutrition (TPN) or Tube Feedings? No Patient Health Education Screen BARRIERS/SPECIAL NEEDS: Physical limitations Visual limitations Cognitive limitations Other need or barrier (specify): Forgetful PREFERRED STYLE OF LEARNING: Reading Client Assistive Service (YANETH) Screen Does the patient require assistance with outpatient visit? No Will get covid vaccine outside. /zander/ VINCE SARAVIA LPN [facility] Signed: 08/09/2023 09:31 ARMIDA PAYNE [facility] Aug 09, 2023 09:24 AM H & P NOTE: LOCAL TITLE: [facility] ANNUAL VISIT STANDARD TITLE: H & P NOTE DATE OF NOTE: AUG 09, 2023@09:24 ENTRY DATE: AUG 09, 2023@09:24:38 AUTHOR: GERRY FELICIANO COSIGNER: URGENCY: STATUS: COMPLETED Annual visit Non VA Providers: Nelida levy Chief complaint: Patient is here for a routine annual visit. HPI: Patient i svery busy with lawn work and gardening during the summer. Satate they are thinkgin about moving sice it is so much work. Otherwise he says his memeory is not what it used to be. Assessment/Plan: 1. Routine labs today 2. ophtho sees this week 3. dentist sees regularly 4. audio no changes 5. Medicaiosn reviewed, renewed Labs and medications reviewed with patient. Discussed plan of care, patient verbalized understanding and agrees with plan. FU in 1 year for annual exam, sooner with any concerns. Clinical Reminders: none Past Medical History: Computerized Problem List is the source for the followin. Tinnitus * (ICD-9-CM 388.30) ACTIVE 2. Hyperlipidemia (SNOMED CT 22605649) ACTIVE 3. Personal History of Colonic Polyps (ICD-9-CM V12.7 ACTIVE 4. Degeneration, Vitreous ACTIVE 5. Gastroesophageal reflux disease (SNOMED CT 7923545 ACTIVE 6. Atypical chest pain ACTIVE 7. Indigestion ACTIVE 8. Health maintenance alteration ACTIVE 9. Arthritis ACTIVE 10. Neck pain ACTIVE 11. Back pain ACTIVE 12. Reflux ACTIVE 13. History of male erectile disorder ACTIVE 14. Allergic reaction to bee sting ACTIVE 15. Impacted cerumen ACTIVE 16. Knee pain ACTIVE 17. Flatulence symptom ACTIVE 18. Hypertension ACTIVE 19. Supraventricular tachycardia ACTIVE PSH: SURGERIES - s/p cABG, s/p left hip replacment Social History: Alcohol: 1 drink per day Tobacco: none Marital Status:, lives with Occupation: retired Family History: mom 90 dad 60's 2 brothers living 6 sisters 3 [employer]AN[employer] OF SERVICE: [employer] TINNITUS 10% SC IMPAIRED HEARING 0% SC SERVICE CONNECTED % - 10 ROS: CONS: negative for fever HEENT: negative CV: neg for acute chest pain, palpitation, RESPIRATORY: neg for acute dyspnea, cough, wheeze GI: neg for n/v, diarrhea, constipation : neg for dysuria, hematuria, MSK:neg for new difficulty with joint discomfort, myalgias, weakness. NEURO: neg for new motor or sensory complains SKIN: neg for new rash, lesion Physical Exam: Vitals: Blood Pressure: 131/65 (08/09/2023 09:15) Pulse: 67 (08/09/2023 09:15) Pulse Oximetry: 96% (08/09/2023 09:15) Resp: 16 (08/09/2023 09:15) Temp: 98 F [36.7 C] (08/09/2023 09:15) Height: 64.5 in [163.8 cm] (08/09/2023 09:15) Weight: 147 lb [66.68 kg] (08/09/2023 09:15) BMI:24.9 GENERAL:well developed, well nourished pt in nad. EYES:PERRLA,EOMI, conjuntiva clear, no discharge,wears glasses. EARS:canals clear, TMs intact NOSE:Nostrils patent, no discharge, THROAT:No enlarged tonsils, no inflammation, no exudate or ulcers. NECK: supple, no obvious thyromegaly HEART:Regular rate and rhythm , no obvious murmurs/rubs RESPIRATORY: Lungs clear to auscultation b/l, no rales or wheezes. ABDOMEN:soft, nontender, nondistended, no organomegaly, normal bs. MSK:normal gait, moves all extremities, no joints swelling, rom normal. NEURO:alert and oriented, cranial nerves II-XII intact, speech clear, strength equal b/l, normal gait and movement, PSYCH: normal affect, well groomed SKIN:warm adn dry, normal color, no rash or suspicious lesions EXT: no cyanosis, no edema lower ext b/l Allergies: Patient has answered NKA SLT - Lab Tests Selected No data available for: REGIONAL ALLERGY PROFILE Vaccinations: IM - Immunizations Immunization Series Date Facility Reaction Info COVID-19 (PFIZER), MRNA, LNP-S, B* 07/06/2022 [facility] COVID-19 (PFIZER), MRNA, LNP-S, P* 3 07/29/2021 [place] <C> 2 11/22/2020 [place] <C> 1 11/01/2020 [place] <C> INFLUENZA, HIGH DOSE SEASONAL 09/26/2018 [facility]* 07/14/2017 [place] 08/04/2016 [facility]* 09/03/2015 [facility] INFLUENZA, HIGH-DOSE, QUADRIVALEN* 07/11/2023 [facility] 07/06/2022 [facility] INFLUENZA, INJECTABLE, QUADRIVALE* 06/24/2021 [place]* 07/10/2020 [facility]* 08/06/2014 [facility] INFLUENZA, SEASONAL, INJECTABLE 08/06/2019 [facility]* [place]; * 08/20/2013 [facility] 09/22/2012 [facility] 09/28/2010 [facility] 07/04/2009 [facility] 08/22/2008 [facility] 09/26/2007 [facility] 09/26/2006 [facility] 09/10/2005 [facility] 09/03/2003 [facility] INFLUENZA, TRIVALENT, ADJUVANTED 08/06/2019 [facility] 09[facility]26/2018 [facility] INFLUENZA, UNSPECIFIED FORMULATIO* 07/06/2022 [facility]* No Site 10/18/2011 [facility]* Outside pr* [facility]* 08/27/2008 [facility]* NOVEL [id number], ALL FORM* 11/05/2009 [place] <C> PNEUMOCOCCAL CONJUGATE PCV 13 01/08/2017 [facility] 01/02/2016 [facility] [place] [facility]* <C> PNEUMOCOCCAL POLYSACCHARIDE PPV23 09/26/2008 [facility] 09/09/2008 [facility] PNEUMOCOCCAL, UNSPECIFIED FORMULA* No Site TD (ADULT), 2 LF TETANUS TOXOID,* 09/26/2006 [facility] 09/09/2006 [facility] TD(ADULT) UNSPECIFIED FORMULATION No Site TDAP 05/15/2014 [place]* <C> ZOSTER LIVE 11/05/2009 [place] <C> 10/10/2009 [facility] ZOSTER RECOMBINANT 2 04/16/2019 [place] [facility]* 1 02/07/2019 [facility]* <C> See the Detailed Immunizations Health Summary Component[DIM] for Comments Labs: pending /zander/ GERRY FELICIANO PHYSICIAN Signed: 08/09/2023 09:38 GERRY FELICIANO OC
--- OUTSIDE RECORDS SUMMARY | 2024-05-21 11:00 | XMS_ITS | Encounter Summary ---
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 [address] [place] [phone] Primary Malignant Neoplasm Of Prostate (HCC) Discharge Disposition: Home or Self Care Social History Tobacco Use Types Packs/Day Years Used Date Smoking Tobacco: Former Cigarettes 0.3 10 1 525 - 3392 Pipe Smokeless Tobacco: Never Dental Answer Date Recorded Dental: Regular Dentist Unknown 04/26/20 24 Sex and Gender Information Value Date Recorded Sex Assigned at Not on file Gender Identity Not on file Sexual Orientation Not on file documented as of this encounter Medications at Time of Discharge Medication Sig Dispensed Refills Start Date End Date aspirin [address] tablet Take 81 mg by mouth. 2 atorvastatin (Lipitor) 80 mg tablet Take 1 tablet by mouth daily. 10/30/2013 metoprolol tartrate (Lopressor) 50 mg tablet Take 50 mg by mouth. 05/24/20 23 documented as of this encounter Plan of Treatment Not on file documented as of this encounter Procedures Procedure Name Priority Date/Time Associated Diagnosis Comments TESTOSTERONE, TOTAL BY MASS SPECROMETRY, S Routine 05/16/2024 10:34 AM CDT Primary Malignant Neoplasm Of Prostate (HCC) PROSTATE-SPECIFIC AG (PSA) DIAGNOSTIC, S Routine 05/16/2024 10:34 AM CDT Primary Malignant Neoplasm Of Prostate (HCC) documented in this encounter Results * Testosterone, Total by Mass Spectrometry, Serum (05/16/2024 10:34 AM CDT) Testosterone, Total by Mass Spectrometry, Serum 538 240 - 950 ng/dL 05/20/2024 3:07 PM CDT [facility] Comment: ----ADDITIONAL INFORMATION---- Testing performed by Liquid Chromatography-Tandem Mass Spectrometry (LC-MS/MS). This test was developed and its performance characteristics determined by [facility] in a manner consistent with CLIA requirements. This test has not been cleared or approved by the U.S. Food and Drug Administration. Blood (Blood, Venous) 05/16/2024 10:34 AM CDT 05/17/2024 8:56 AM CDT Jesika Bragg P.A.-C., M.S. LAB BLOOD NON ADD-ON [facility] [address] [place] [address] [facility] [address] [place] [address] [place] [address] * (ABNORMAL) PSA (Prostate-Specific Antigen), Diagnostic (05/16/2024 10:34 AM CDT) Prostate-Specific Ag 8.3(H) <=7.2 ng/mL 05/16/2024 11:36 AM CDT [facility] Comment: ----ADDITIONAL INFORMATION---- The testing method is an electrochemiluminescence assay manufactured by [employer] and performed on the Modular or eTapestry system. Values obtained with different assay methods or kits may be different and cannot be used interchangeably. Test results cannot be interpreted as absolute evidence for the presence or absence of malignant disease. Blood (Blood, Venous) 05/16/2024 10:34 AM CDT 05/16/2024 11:02 AM CDT Jesika Bragg P.A.-C., M.S. LAB BLOOD ADD- ON [facility] [address] [place] [address], [facility] NPRG [facility] [address] [place] [address] documented in this encounter Visit Diagnoses Diagnosis Primary Malignant Neoplasm Of Prostate (HCC) documented in this encounter
--- OUTSIDE RECORDS SUMMARY | 2024-05-21 11:00 | XMS_ITS | Encounter Summary ---
Author Organization [facility] Address [address] [place] [id number] Care Team Providers Care Service Establishment Attendant Name Role Phone Unavailable Primary Care Provider Unavailabl e Reason for Referral * MRI/CAT/PET Scan (Routine) - Closed Specialty Diagnoses / Procedures Referred By Contac t Referred To Contact Diagnoses Primary Malignant Neoplasm Of Prostate (HCC) Procedures PET CT Skull to Thigh PSMA Jesika Bragg P.A.-C., M.S. [address] [place] [phone] [facility] Region Referral ID Status Reason Start Date Expiration Date Visits Re quested Visits Authorized [id number] Closed 05/09/2024 05/09/2025 1 1 Reason for Visit * MRI/CAT/PET Scan (Routine) - Closed Specialty Diagnoses / Procedures Referred By Contac t Referred To Contact Diagnoses Primary Malignant Neoplasm Of Prostate (HCC) Procedures PET CT Skull to Thigh PSMA eJsika Bragg P.A.-C., M.S. [address] [place] [phone] [facility] Region Referral ID Status Reason Start Date Expiration Date Visits Re quested Visits Authorized [id number] Closed 05/09/2024 05/09/2025 1 1 Encounter Details Date Type Department Care Team (Latest Contact Info) Description 05/16/2024 11:15 AM CDT - 05/16/2024 11:59 PM CDT Hospital Encounter Department of Radiology in [address] [place] [phone] Jesika Bragg P.A.-C., M.S. [address] [place] [phone] Primary Malignant Neoplasm Of Prostate (HCC) Discharge Disposition: Home or Self Care Social History Tobacco Use Types Packs/Day Years Used Date Smoking Tobacco: Former Cigarettes 0.3 10 1 034 - 8311 Pipe Smokeless Tobacco: Never Dental Answer Date [...] (HCC) documented in this encounter Results * PET CT Skull [...] metastatic prostate disease. Jesika Bragg P.A.-C., M.S. [facility] PROCEDU RES documented in this encounter Visit Diagnoses Diagnosis Primary Malignant Neoplasm Of Prostate (HCC) documented in this encounter Administered Medications Inactive Administered Medications - up to 3 most recent administrations Medication Order MAR Action Action Date Dose Rate Site piflufolastat F 18 injection (Pylarify F-18) 9.9 millicurie, intravenous, Once, On Tue05/16/24 at 1200, For 1 dose, Imaging Protocol Orders Given 05/16/2024 11:25 AM CDT 9.9 millicuries Right Antecubital documented in this encounter
--- OUTSIDE RECORDS SUMMARY | 2024-05-21 11:00 | XMS_ITS | Continuity of Care Document ---
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 and [facility] facilities. It does not include entries that were removed or entered in error. 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 [facility] Hyperlipidemia (SNOMED CT 42459862) Active Condition [facility] Hypertension Active Condition [facility] Impacted cerumen Active Condition [facility] Indigestion Active Condition [facility] Knee pain Active Condition [facility] Neck pain Active Condition [facility] 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) [facility] Reflux Active Condition [facility] Supraventricular tachycardia Active Condition [facility] Tinnitus * (ICD-9-CM 388.30) Active Condition [facility] Diagnosis: ICD-10-CM Z01.01 Encounter for exam of eyes and vision w abnormal findings Active Diagnosis [facility] Diagnosis: ICD-10-CM Z23 Encounter for immunization Active Diagnosis [facility] Diagnosis: ICD-10-CM Z00.8 Encounter for other general examination Active Diagnosis [facility] Medications Combined list of outpatient medications from Department of [facility] and [facility] facilities.Medications provided include 1) outpatient medications from the last 15 months, and 2) patient-reported medications. Medication Details Route Status Patient Instructions Prescription Expires Prescription Number Last Dispense Date Ordering Provider Order Date Order Qty Source ASPIRIN 81MG TAB,EC ASPIRIN 81MG TAB,EC Non-VA TAKE ONE TABLET BY MOUTH Aug 09, 2022 Non-VA Document ed by: GERRY FELICIANO Document ed at: [facility] ORAL ACTIVE GERRY FELICIANO 2021 [facility] ATORVASTATI N CA 80MG TAB ATORVAST ATIN CA 80MG TAB Disconti nued TAKE ONE-HALF TABLET BY MOUTH EVERY DAY Aug 09, 2023 15 Aug 09, 2024 [id number] Aug 14, 2023 [facility] ORAL DISCONT INUED 08/09/2024 [id number] GERRY FELICIANO 2022 15 [facility] ATORVASTATI N CA 80MG TAB ATORVAST ATIN CA 80MG TAB Disconti nued TAKE ONE-HALF TABLET BY MOUTH EVERY DAY Aug 09, 2022 15 Aug 10, 2023 [id number] Jul 25, 2023 [facility] ORAL DISCONT INUED 08/10/2023 [id number] GERRY FELICIANO 2021 [facility] METOPROLOL TARTRATE 50MG TAB METOPROL OL TARTRATE 50MG TAB Active TAKE ONE TABLET BY MOUTH TWICE A DAY FOR BLOOD PRESSURE AND HEART RHYTHM May 24, 2023 180 May 24, 2024 [id number] C Nov 10, 2023 [facility] ORAL ACTIVE 05/24/2024 [id number] 4 GERRY FELICIANO 2022 180 [facility] ROSUVASTATI N CA 40MG TAB ROSUVAST ATIN CA 40MG TAB Active TAKE ONE TABLET BY MOUTH AT BEDTIME FOR CHOLESTE ROL FOR CHOLESTE ROL Aug 24, 2023 90 Aug 24, 2024 [id number] Nov 14, 2023 [facility] ORAL ACTIVE 08/24/2024 [id number] GERRY FELICIANO 2022 90 [facility] Immunizations Combined list of available immunizations from the Department of Defense and Veterans Affairs facilities. Immunization Series Date Given Administered By Site Reaction Lot Number CVX Code Drug Educational Programming Director Status Comments Source COVID-19 (SpaceClaim), MRNA, LNP-S, PF, AMANDA-SUCROSE, 30 MCG/0.3 ML (AGES 12+ YEARS) 1 2022 NAE RIVERA LEFT DELTO ID [id number] 309 complet ed [facility] INFLUENZA, HIGH-DOSE, QUADRIVALENT 2022 197 complet ed [facility] COVID-19 (SpaceClaim), MRNA, LNP-S, BIVALENT, PF, 30 MCG/0.3 ML DOSE 2021 300 complet ed [facility] INFLUENZA, HIGH-DOSE, QUADRIVALENT 2021 197 complet ed [facility] INFLUENZA, UNSPECIFIED FORMULATION 2021 88 complet ed [facility] COVID-19 (SpaceClaim), MRNA, LNP-S, PF, 30 MCG/0.3 ML DOSE 3 2020 208 complet ed PFR; [id number]; 1 [facility] INFLUENZA, INJECTABLE, QUADRIVALENT, PRESERVATIVE FREE 2020 150 complet ed [facility] COVID-19 (SpaceClaim), MRNA, LNP-S, PF, 30 MCG/0.3 ML DOSE 2 2020 208 complet ed PFR; [id number]; 1 [facility] COVID-19 (SpaceClaim), MRNA, LNP-S, PF, 30 MCG/0.3 ML DOSE 1 2020 208 complet ed PFR; [id number]; 1 [facility] INFLUENZA, INJECTABLE, QUADRIVALENT, PRESERVATIVE FREE 2019 150 complet ed [facility] INFLUENZA, SEASONAL, INJECTABLE 2018 141 complet ed [facility] INFLUENZA, TRIVALENT, ADJUVANTED 2018 168 complet ed [facility] ZOSTER RECOMBINANT 2 2018 187 complet ed [facility] ZOSTER RECOMBINANT 1 2018 187 complet ed [facility] INFLUENZA, HIGH DOSE SEASONAL 2017 135 complet ed [facility] INFLUENZA, TRIVALENT, ADJUVANTED 2017 168 complet ed [facility] INFLUENZA, HIGH DOSE SEASONAL 2016 135 complet ed [facility] PNEUMOCOCCAL CONJUGATE PCV 13 2016 133 complet ed [facility] INFLUENZA, HIGH DOSE SEASONAL 2015 135 complet ed [facility] PNEUMOCOCCAL CONJUGATE PCV 13 2015 133 complet ed [employer] Lot [id number] Exp date 02/23 [facility] INFLUENZA, HIGH DOSE SEASONAL 2014 135 complet ed [facility] INFLUENZA, HIGH DOSE SEASONAL 2014 135 complet ed [facility] INFLUENZA, INJECTABLE, QUADRIVALENT, PRESERVATIVE FREE 2013 150 complet ed [facility] INFLUENZA, SEASONAL, INJECTABLE 2013 141 complet ed [facility] TDAP 2013 115 complet ed boostrix, [id number], 09/21/16 [facility] INFLUENZA, SEASONAL, INJECTABLE 2012 141 complet ed [facility] INFLUENZA, UNSPECIFIED FORMULATION 2012 88 complet ed [facility] INFLUENZA, SEASONAL, INJECTABLE 2011 141 complet ed [facility] INFLUENZA, UNSPECIFIED FORMULATION 2011 88 complet ed [facility] INFLUENZA, SEASONAL, INJECTABLE 2009 141 complet ed [facility] INFLUENZA, UNSPECIFIED FORMULATION 2009 88 complet ed [facility] NOVEL INFLUENZA-H1N 1-09, ALL FORMULATIONS 2009 128 complet ed [employer] [facility] ZOSTER LIVE 2009 121 complet ed [employer]. ,inc. [id number] [facility] ZOSTER LIVE 2009 121 complet ed [facility] INFLUENZA, UNSPECIFIED FORMULATION 2008 88 complet ed [facility] INFLUENZA, SEASONAL, INJECTABLE 2008 141 complet ed [facility] PNEUMOCOCCAL POLYSACCHARID E PPV23 2007 33 complet ed [facility] PNEUMOCOCCAL POLYSACCHARID E PPV23 2007 33 complet ed [facility] PNEUMOCOCCAL, UNSPECIFIED FORMULATION 2007 109 complet ed [facility] INFLUENZA, UNSPECIFIED FORMULATION 2007 88 complet ed [facility] INFLUENZA, SEASONAL, INJECTABLE 2007 141 complet ed [facility] INFLUENZA, SEASONAL, INJECTABLE 2006 141 complet ed [facility] INFLUENZA, SEASONAL, INJECTABLE 2005 141 complet [facility] TD (ADULT), 2 LF TETANUS TOXOID, PRESERVATIVE FREE, ADSORBED 2005 09 complet ed [facility] TD (ADULT), 2 LF TETANUS TOXOID, PRESERVATIVE FREE, ADSORBED 2005 09 complet ed [facility] INFLUENZA, SEASONAL, INJECTABLE 2004 141 complet ed [facility] TD(ADULT) UNSPECIFIED FORMULATION 2004 139 complet [facility] INFLUENZA, SEASONAL, INJECTABLE 2002 141 complet [facility] Results Combined list of recent chemistry, hematology and other laboratory results from Department of Defense and Veterans Affairs, ranging from 15 months to all on record, depending upon the facility. Order Name Results Value Reference Range Date Interpretation Specimen Comments Source CBC & DIFF LEUKOCYTES [#/VOLUME] IN BLOOD BY AUTOMATED COUNT 5.68 10*3/u L 4.0 - 11.0 08/09 Specimen Type: BLOOD Comment: Automated Differentia l Performed Ordering Provider: NADIR FELICIANO Report Released Date/Time: Aug 09, 2023 09:29 AM Reporting Lab: [facility] [address] Performing Lab: [facility] [address] [facility] CBC & DIFF ERYTHROCYTE S [#/VOLUME] IN BLOOD BY AUTOMATED COUNT 4.63 10*6/u L 4.6 - 6.2 08/09 Specimen Type: BLOOD Comment: Automated Differentia l Performed Ordering Provider: NADIR FELICIANO Report Released Date/Time: Aug 09, 2023 09:29 AM Reporting Lab: [facility] [address] Performing Lab: [facility] [address] [facility] CBC & DIFF HEMOGLOBIN [MASS/VOLUM E] IN BLOOD 15.5 g/dL 13.5 - 17.9 08/09 Specimen Type: BLOOD Comment: Automated Differentia l Performed Ordering Provider: NADIR FELICIANO Report Released Date/Time: Aug 09, 2023 09:29 AM Reporting Lab: [facility] [address] Performing Lab: [facility] [address] [facility] CBC & DIFF HEMATOCRIT [VOLUME FRACTION] OF BLOOD BY AUTOMATED COUNT 45.3 41 - 54 08/09 Specimen Type: BLOOD Comment: Automated Differentia l Performed Ordering Provider: NADIR FELICIANO Report Released Date/Time: Aug 09, 2023 09:29 AM Reporting Lab: [facility] [address] Performing Lab: [facility] [address] [facility] CBC & DIFF MCV [ENTITIC VOLUME] BY AUTOMATED COUNT 97.8 fL 80 - 100 08/09 Specimen Type: BLOOD Comment: Automated Differentia l Performed Ordering Provider: NADIR FELICIANO Report Released Date/Time: Aug 09, 2023 09:29 AM Reporting Lab: [facility] [phone] Performing Lab: [facility] [address] [facility] CBC & DIFF MCH [ENTITIC MASS] BY AUTOMATED COUNT 33.5 pg 27 - 33 08/09 H Specimen Type: BLOOD Comment: Automated Differentia l Performed Ordering Provider: NADIR FELICIANO Report Released Date/Time: Aug 09, 2023 09:29 AM Reporting Lab: [facility] [phone] Performing Lab: [facility] [address] [facility] CBC & DIFF MCHC [MASS/VOLUM E] BY AUTOMATED COUNT 34.2 g/dL 32.0 - 37.5 08/09 Specimen Type: BLOOD Comment: Automated Differentia l Performed Ordering Provider: NADIR FELICIANO Report Released Date/Time: Aug 09, 2023 09:29 AM Reporting Lab: [facility] [address] Performing Lab: [facility] [address] [facility] CBC & DIFF PLATELETS [#/VOLUME] IN BLOOD BY AUTOMATED COUNT 191 10*3/u L 150 - 400 08/09 Specimen Type: BLOOD Comment: Automated Differentia l Performed Ordering Provider: NADIR FELICIANO Report Released Date/Time: Aug 09, 2023 09:29 AM Reporting Lab: [facility] [address] Performing Lab: [facility] [address] [facility] CBC & DIFF PLATELET MEAN VOLUME [ENTITIC VOLUME] IN BLOOD BY AUTOMATED COUNT 9.4 fL 7.4 - 10.4 08/09 Specimen Type: BLOOD Comment: Automated Differentia l Performed Ordering Provider: NADIR FELICIANO Report Released Date/Time: Aug 09, 2023 09:29 AM Reporting Lab: [facility] [phone] Performing Lab: [facility] [phone] [facility] CBC & DIFF NEUTROPHILS /100 LEUKOCYTES IN BLOOD BY MANUAL COUNT 62.9 40.0 - 80.0 08/09 Specimen Type: BLOOD Comment: Automated Differentia l Performed Ordering Provider: NADIR FELICIANO Report Released Date/Time: Aug 09, 2023 09:29 AM Reporting Lab: [facility] [address] Performing Lab: [facility] [address] [facility] CBC & DIFF LYMPHOCYTES /100 LEUKOCYTES IN BLOOD BY MANUAL COUNT 27.6 15.0 - 45.0 08/09 Specimen Type: BLOOD Comment: Automated Differentia l Performed Ordering Provider: NADIR FELICIANO Report Released Date/Time: Aug 09, 2023 09:29 AM Reporting Lab: [facility] [address] Performing Lab: [facility] [phone] [facility] CBC & DIFF MONOCYTES/1 00 LEUKOCYTES IN BLOOD BY AUTOMATED COUNT 7.4 2.0 - 12.0 08/09 Specimen Type: BLOOD Comment: Automated Differentia l Performed Ordering Provider: NADIR FELICIANO Report Released Date/Time: Aug 09, 2023 09:29 AM Reporting Lab: [facility] [address] Performing Lab: [facility] [address] [facility] CBC & DIFF EOSINOPHILS /100 LEUKOCYTES IN BLOOD BY AUTOMATED COUNT 0.7 0.0 - 6.0 08/09 Specimen Type: BLOOD Comment: Automated Differentia l Performed Ordering Provider: NADIR FELICIANO Report Released Date/Time: Aug 09, 2023 09:29 AM Reporting Lab: [facility] [address] Performing Lab: [facility] [address] [facility] CBC & DIFF BASOPHILS/1 00 LEUKOCYTES IN BLOOD BY MANUAL COUNT 0.7 0.0 - 2.0 08/09 Specimen Type: BLOOD Comment: Automated Differentia l Performed Ordering Provider: NADIR FELICIANO Report Released Date/Time: Aug 09, 2023 09:29 AM Reporting Lab: [facility] [phone] Performing Lab: [facility] [address] [facility] CBC & DIFF ERYTHROCYTE DISTRIBUTIO N WIDTH [RATIO] BY AUTOMATED COUNT 12.5 11.5 - 14.5 08/09 Specimen Type: BLOOD Comment: Automated Differentia l Performed Ordering Provider: NADIR FELICIANO Report Released Date/Time: Aug 09, 2023 09:29 AM Reporting Lab: [facility] [address] Performing Lab: [facility] [address] [facility] CBC & DIFF LYMPHOCYTES [#/VOLUME] IN BLOOD BY AUTOMATED COUNT 1.57 10*3/u L 1.0 - 4.0 08/09 Specimen Type: BLOOD Comment: Automated Differentia l Performed Ordering Provider: NADIR FELICIANO Report Released Date/Time: Aug 09, 2023 09:29 AM Reporting Lab: [facility] [address] Performing Lab: [facility] [address] [facility] CBC & DIFF MONOCYTES [#/VOLUME] IN BLOOD BY AUTOMATED COUNT 0.42 10*3/u L 0.1 - 1.0 08/09 Specimen Type: BLOOD Comment: Automated Differentia l Performed Ordering Provider: NADIR FELICIANO Report Released Date/Time: Aug 09, 2023 09:29 AM Reporting Lab: [facility] [address] Performing Lab: [facility] [address] [facility] CBC & DIFF NEUTROPHILS [#/VOLUME] IN BLOOD BY AUTOMATED COUNT 3.57 10*3/u L 2.0 - 7.7 08/09 Specimen Type: BLOOD Comment: Automated Differentia l Performed Ordering Provider: NADIR FELICIANO Report Released Date/Time: Aug 09, 2023 09:29 AM Reporting Lab: [facility] [address] Performing Lab: [facility] [address] [facility] CBC & DIFF EOSINOPHILS [#/VOLUME] IN BLOOD BY AUTOMATED COUNT 0.04 10*3/u L 0 - 0.5 08/09 Specimen Type: BLOOD Comment: Automated Differentia l Performed Ordering Provider: NADIR FELICIANO Report Released Date/Time: Aug 09, 2023 09:29 AM Reporting Lab: [facility] [address] Performing Lab: [facility] [address] [facility] CBC & DIFF BASOPHILS [#/VOLUME] IN BLOOD BY AUTOMATED COUNT 0.04 10*3/u L 0 - 0.2 08/09 Specimen Type: BLOOD Comment: Automated Differentia l Performed Ordering Provider: NADIR FELICIANO Report Released Date/Time: Aug 09, 2023 09:29 AM Reporting Lab: [facility] [address] Performing Lab: [facility] [address] [facility] CBC & DIFF IG(META,MYE LO,PRO) 0.7 08/09 Specimen Type: BLOOD Comment: Automated Differentia l Performed Ordering Provider: NADIR FELICIANO Report Released Date/Time: Aug 09, 2023 09:29 AM Reporting Lab: [facility] [address] Performing Lab: [facility] [address] [facility] CBC & DIFF IMMATURE GRANULOCYTE S [PRESENCE] IN BLOOD BY AUTOMATED COUNT 0.04 10*3/u L 0 - 0.1 08/09 Specimen Type: BLOOD Comment: Automated Differentia l Performed Ordering Provider: NADIR FELICIANO Report Released Date/Time: Aug 09, 2023 09:29 AM Reporting Lab: [facility] [address] Performing Lab: [facility] [address] [facility] COMPREHEN SIVE METABOLIC PANEL+MG CREATININE [MASS/VOLUM E] IN SERUM OR PLASMA 0.8 mg/dL 0.7 - 1.2 08/09 Specimen Type: PLASMA No comment entered. Ordering Provider: NADIR FELICIANO Report Released Date/Time: Aug 09, 2023 09:29 AM Reporting Lab: [facility] [address] Performing Lab: [facility] [address] [facility] COMPREHEN SIVE METABOLIC PANEL+MG UREA NITROGEN [MASS/VOLUM E] IN SERUM OR PLASMA 16 mg/dL 8 - 26 08/09 Specimen Type: PLASMA No comment entered. Ordering Provider: NADIR FELICIANO Report Released Date/Time: Aug 09, 2023 09:29 AM Reporting Lab: [facility] [address] Performing Lab: [facility] [address] [facility] COMPREHEN SIVE METABOLIC PANEL+MG GLUCOSE [MASS/VOLUM E] IN SERUM OR PLASMA 136 mg/dL 70 - 100 08/09 H Specimen Type: PLASMA No comment entered. Ordering Provider: NADIR FELICIANO Report Released Date/Time: Aug 09, 2023 09:29 AM Reporting Lab: [facility] [address] Performing Lab: [facility] [address] [facility] COMPREHEN SIVE METABOLIC PANEL+MG SODIUM [MOLES/VOLU ME] IN SERUM OR PLASMA 140 mmol/L 136 - 145 08/09 Specimen Type: PLASMA No comment entered. Ordering Provider: NADIR FELICIANO Report Released Date/Time: Aug 09, 2023 09:29 AM Reporting Lab: [facility] [address] Performing Lab: [facility] [address] [facility] COMPREHEN SIVE METABOLIC PANEL+MG POTASSIUM [MOLES/VOLU ME] IN SERUM OR PLASMA 4.2 mmol/L 3.5 - 5.1 08/09 Specimen Type: PLASMA No comment entered. Ordering Provider: NADIR FELICIANO Report Released Date/Time: Aug 09, 2023 09:29 AM Reporting Lab: [facility] [address] Performing Lab: [facility] [address] [facility] COMPREHEN SIVE METABOLIC PANEL+MG CHLORIDE [MOLES/VOLU ME] IN SERUM OR PLASMA 108 mmol/L 98 - 107 08/09 H Specimen Type: PLASMA No comment entered. Ordering Provider: NADIR FELICIANO Report Released Date/Time: Aug 09, 2023 09:29 AM Reporting Lab: [facility] [address] Performing Lab: [facility] [address] [facility] COMPREHEN SIVE METABOLIC PANEL+MG CARBON DIOXIDE, TOTAL [MOLES/VOLU ME] IN SERUM OR PLASMA 24 mmol/L 22 - 29 08/09 Specimen Type: PLASMA No comment entered. Ordering Provider: NADIR FELICIANO Report Released Date/Time: Aug 09, 2023 09:29 AM Reporting Lab: [facility] [address] Performing Lab: [facility] [address] [facility] COMPREHEN SIVE METABOLIC PANEL+MG CALCIUM [MASS/VOLUM E] IN SERUM OR PLASMA 9.1 mg/dL 8.4 - 10.2 08/09 Specimen Type: PLASMA No comment entered. Ordering Provider: NADIR FELICIANO Report Released Date/Time: Aug 09, 2023 09:29 AM Reporting Lab: [facility] [address] Performing Lab: [facility] [address] [facility] COMPREHEN SIVE METABOLIC PANEL+MG PROTEIN [MASS/VOLUM E] IN SERUM OR PLASMA 6.4 g/dL 6.0 - 8.3 08/09 Specimen Type: PLASMA No comment entered. Ordering Provider: NADIR FELICIANO Report Released Date/Time: Aug 09, 2023 09:29 AM Reporting Lab: [facility] [address] Performing Lab: [facility] [address] [facility] COMPREHEN SIVE METABOLIC PANEL+MG ALBUMIN [MASS/VOLUM E] IN SERUM OR PLASMA 3.9 g/dL 3.5 - 5.2 08/09 Specimen Type: PLASMA No comment entered. Ordering Provider: NADIR FELICIANO Report Released Date/Time: Aug 09, 2023 09:29 AM Reporting Lab: [facility] [address] Performing Lab: [facility] [address] [facility] COMPREHEN SIVE METABOLIC PANEL+MG BILIRUBIN.T OTAL [MASS/VOLUM E] IN SERUM OR PLASMA 0.9 mg/dL 0.2 - 1.2 08/09 Specimen Type: PLASMA No comment entered. Ordering Provider: NADIR FELICIANO Report Released Date/Time: Aug 09, 2023 09:29 AM Reporting Lab: [facility] [address] Performing Lab: [facility] [address] [facility] COMPREHEN SIVE METABOLIC PANEL+MG MAGNESIUM [MASS/VOLUM E] IN SERUM OR PLASMA 1.8 mg/dL 1.6 - 2.6 08/09 Specimen Type: PLASMA No comment entered. Ordering Provider: NADIR FELICIANO Report Released Date/Time: Aug 09, 2023 09:29 AM Reporting Lab: [facility] [address] Performing Lab: [facility] [address] [facility] COMPREHEN SIVE METABOLIC PANEL+MG ANION GAP IN SERUM OR PLASMA 8 mmol/L 5 - 15 08/09 Specimen Type: PLASMA No comment entered. Ordering Provider: NADIR FELICIANO Report Released Date/Time: Aug 09, 2023 09:29 AM Reporting Lab: [facility] [address] Performing Lab: [facility] [address] [facility] COMPREHEN SIVE METABOLIC PANEL+MG ALKALINE PHOSPHATASE [ENZYMATIC ACTIVITY/VO LUME] IN SERUM OR PLASMA 71 U/L 40 - 150 08/09 Specimen Type: PLASMA No comment entered. Ordering Provider: NADIR FELICIANO Report Released Date/Time: Aug 09, 2023 09:29 AM Reporting Lab: [facility] [address] Performing Lab: [facility] [address] [facility] COMPREHEN SIVE METABOLIC PANEL+MG ALANINE AMINOTRANSF ERASE [ENZYMATIC ACTIVITY/VO LUME] IN SERUM OR PLASMA 20 U/L <55 - 55 08/09 Specimen Type: PLASMA No comment entered. Ordering Provider: NADIR FELICIANO Report Released Date/Time: Aug 09, 2023 09:29 AM Reporting Lab: [facility] [address] Performing Lab: [facility] [address] [facility] COMPREHEN SIVE METABOLIC PANEL+MG ASPARTATE AMINOTRANSF ERASE [ENZYMATIC ACTIVITY/VO LUME] IN SERUM OR PLASMA 23 U/L <34 - 34 08/09 Specimen Type: PLASMA No comment entered. Ordering Provider: NADIR FELICIANO Report Released Date/Time: Aug 09, 2023 09:29 AM Reporting Lab: [facility] [address] Performing Lab: [facility] [address] [facility] COMPREHEN SIVE METABOLIC PANEL+MG GLOMERULAR FILTRATION RATE/1.73 SQ M.PREDICTED [VOLUME RATE/AREA] IN SERUM, PLASMA OR BLOOD BY CREATININE- BASED FORMULA (CKD-EPI 2020) 88 60 08/09 Specimen Type: PLASMA No comment entered. Ordering Provider: NADIR FELICIANO Report Released Date/Time: Aug 09, 2023 09:29 AM Reporting Lab: [facility] [address] Performing Lab: [facility] [address] [facility] CBC & DIFF LEUKOCYTES [#/VOLUME] IN BLOOD BY AUTOMATED COUNT 5.06 10*3/u L 4.0 - 11.0 08/09 Specimen Type: BLOOD Comment: Automated Differentia l Performed Ordering Provider: NADIR FELICIANO Report Released Date/Time: Aug 09, 2022 10:15 AM Reporting Lab: [facility] [address] Performing Lab: [facility] [address] [facility] CBC & DIFF ERYTHROCYTE S [#/VOLUME] IN BLOOD BY AUTOMATED COUNT 4.76 10*6/u L 4.6 - 6.2 08/09 Specimen Type: BLOOD Comment: Automated Differentia l Performed Ordering Provider: NADIR FELICIANO Report Released Date/Time: Aug 09, 2022 10:15 AM Reporting Lab: [facility] [address] Performing Lab: [facility] [address] [facility] CBC & DIFF HEMOGLOBIN [MASS/VOLUM E] IN BLOOD 15.8 g/dL 13.5 - 17.9 08/09 Specimen Type: BLOOD Comment: Automated Differentia l Performed Ordering Provider: NADIR FELICIANO Report Released Date/Time: Aug 09, 2022 10:15 AM Reporting Lab: [facility] [id number] Performing Lab: [facility] [phone] [facility] CBC & DIFF HEMATOCRIT [VOLUME FRACTION] OF BLOOD BY AUTOMATED COUNT 46.2 41 - 54 08/09 Specimen Type: BLOOD Comment: Automated Differentia l Performed Ordering Provider: NADIR FELICIANO Report Released Date/Time: Aug 09, 2022 10:15 AM Reporting Lab: [facility] [phone] Performing Lab: [facility] [id number] [facility] CBC & DIFF MCV [ENTITIC VOLUME] BY AUTOMATED COUNT 97.1 fL 80 - 100 08/09 Specimen Type: BLOOD Comment: Automated Differentia l Performed Ordering Provider: NADIR FELICIANO Report Released Date/Time: Aug 09, 2022 10:15 AM Reporting Lab: [facility] [phone] Performing Lab: [facility] [address] [facility] CBC & DIFF MCH [ENTITIC MASS] BY AUTOMATED COUNT 33.2 pg 27 - 33 08/09 H Specimen Type: BLOOD Comment: Automated Differentia l Performed Ordering Provider: NADIR FELICIANO Report Released Date/Time: Aug 09, 2022 10:15 AM Reporting Lab: [facility] [address] Performing Lab: [facility] [address] [facility] CBC & DIFF MCHC [MASS/VOLUM E] BY AUTOMATED COUNT 34.2 g/dL 32.0 - 37.5 08/09 Specimen Type: BLOOD Comment: Automated Differentia l Performed Ordering Provider: NADIR FELICIANO Report Released Date/Time: Aug 09, 2022 10:15 AM Reporting Lab: [facility] [address] Performing Lab: [facility] [address] [facility] CBC & DIFF PLATELETS [#/VOLUME] IN BLOOD BY AUTOMATED COUNT 207 10*3/u L 150 - 400 08/09 Specimen Type: BLOOD Comment: Automated Differentia l Performed Ordering Provider: NADIR FELICIANO Report Released Date/Time: Aug 09, 2022 10:15 AM Reporting Lab: [facility] [address] Performing Lab: [facility] [address] [facility] CBC & DIFF PLATELET MEAN VOLUME [ENTITIC VOLUME] IN BLOOD BY AUTOMATED COUNT 9.5 fL 7.4 - 10.4 08/09 Specimen Type: BLOOD Comment: Automated Differentia l Performed Ordering Provider: NADIR FELICIANO Report Released Date/Time: Aug 09, 2022 10:15 AM Reporting Lab: [facility] [address] Performing Lab: [facility] [address] [facility] CBC & DIFF NEUTROPHILS /100 LEUKOCYTES IN BLOOD BY MANUAL COUNT 59.5 08/09 Specimen Type: BLOOD Comment: Automated Differentia l Performed Ordering Provider: NADIR FELICIANO Report Released Date/Time: Aug 09, 2022 10:15 AM Reporting Lab: [facility] [address] Performing Lab: [facility] [address] [facility] CBC & DIFF LYMPHOCYTES /100 LEUKOCYTES IN BLOOD BY MANUAL COUNT 29.6 08/09 Specimen Type: BLOOD Comment: Automated Differentia l Performed Ordering Provider: NADIR FELICIANO Report Released Date/Time: Aug 09, 2022 10:15 AM Reporting Lab: [facility] [address] Performing Lab: [facility] [address] [facility] CBC & DIFF MONOCYTES/1 00 LEUKOCYTES IN BLOOD BY AUTOMATED COUNT 8.9 08/09 Specimen Type: BLOOD Comment: Automated Differentia l Performed Ordering Provider: NADIR FELICIANO Report Released Date/Time: Aug 09, 2022 10:15 AM Reporting Lab: [facility] [address] Performing Lab: [facility] [address] [facility] CBC & DIFF EOSINOPHILS /100 LEUKOCYTES IN BLOOD BY AUTOMATED COUNT 1.0 08/09 Specimen Type: BLOOD Comment: Automated Differentia l Performed Ordering Provider: NADIR FELICIANO Report Released Date/Time: Aug 09, 2022 10:15 AM Reporting Lab: [facility] [phone] Performing Lab: [facility] [address] [facility] CBC & DIFF BASOPHILS/1 00 LEUKOCYTES IN BLOOD BY MANUAL COUNT 0.8 08/09 Specimen Type: BLOOD Comment: Automated Differentia l Performed Ordering Provider: NADIR FELICIANO Report Released Date/Time: Aug 09, 2022 10:15 AM Reporting Lab: [facility] [address] Performing Lab: [facility] [address] [facility] CBC & DIFF ERYTHROCYTE DISTRIBUTIO N WIDTH [RATIO] BY AUTOMATED COUNT 12.5 11.5 - 14.5 08/09 Specimen Type: BLOOD Comment: Automated Differentia l Performed Ordering Provider: NADIR FELICIANO Report Released Date/Time: Aug 09, 2022 10:15 AM Reporting Lab: [facility] [address] Performing Lab: [facility] [address] [facility] CBC & DIFF LYMPHOCYTES [#/VOLUME] IN BLOOD BY AUTOMATED COUNT 1.50 10*3/u L 1.0 - 4.0 08/09 Specimen Type: BLOOD Comment: Automated Differentia l Performed Ordering Provider: NADIR FELICIANO Report Released Date/Time: Aug 09, 2022 10:15 AM Reporting Lab: [facility] [phone] Performing Lab: [facility] [address] [facility] CBC & DIFF MONOCYTES [#/VOLUME] IN BLOOD BY AUTOMATED COUNT 0.45 10*3/u L 0.1 - 1.0 08/09 Specimen Type: BLOOD Comment: Automated Differentia l Performed Ordering Provider: NADIR FELICIANO Report Released Date/Time: Aug 09, 2022 10:15 AM Reporting Lab: [facility] [address] Performing Lab: [facility] [address] [facility] CBC & DIFF NEUTROPHILS [#/VOLUME] IN BLOOD BY AUTOMATED COUNT 3.01 10*3/u L 2.0 - 7.7 08/09 Specimen Type: BLOOD Comment: Automated Differentia l Performed Ordering Provider: NADIR FELICIANO Report Released Date/Time: Aug 09, 2022 10:15 AM Reporting Lab: [facility] [address] Performing Lab: [facility] [address] [facility] CBC & DIFF EOSINOPHILS [#/VOLUME] IN BLOOD BY AUTOMATED COUNT 0.05 10*3/u L 0 - 0.5 08/09 Specimen Type: BLOOD Comment: Automated Differentia l Performed Ordering Provider: NADIR FELICIANO Report Released Date/Time: Aug 09, 2022 10:15 AM Reporting Lab: [facility] [address] Performing Lab: [facility] [address] [facility] CBC & DIFF BASOPHILS [#/VOLUME] IN BLOOD BY AUTOMATED COUNT 0.04 10*3/u L 0 - 0.2 08/09 Specimen Type: BLOOD Comment: Automated Differentia l Performed Ordering Provider: NADIR FELICIANO Report Released Date/Time: Aug 09, 2022 10:15 AM Reporting Lab: [facility] [address] Performing Lab: [facility] [address] [facility] CBC & DIFF IG(META,MYE LO,PRO) 0.2 08/09 Specimen Type: BLOOD Comment: Automated Differentia l Performed Ordering Provider: NADIR FELICIANO Report Released Date/Time: Aug 09, 2022 10:15 AM Reporting Lab: [facility] [phone] Performing Lab: [facility] [address] [facility] CBC & DIFF IMMATURE GRANULOCYTE S [PRESENCE] IN BLOOD BY AUTOMATED COUNT 0.01 10*3/u L 0 - 0.1 08/09 Specimen Type: BLOOD Comment: Automated Differentia l Performed Ordering Provider: NADIR FELICIANO Report Released Date/Time: Aug 09, 2022 10:15 AM Reporting Lab: [facility] [phone] Performing Lab: [facility] [address] [facility] COMPREHEN SIVE METABOLIC PANEL+MG CREATININE [MASS/VOLUM E] IN SERUM OR PLASMA 0.8 mg/dL 0.7 - 1.2 08/09 Specimen Type: PLASMA No comment entered. Ordering Provider: NADIR FELICIANO Report Released Date/Time: Aug 09, 2022 10:15 AM Reporting Lab: [facility] [address] Performing Lab: [facility] [address] [facility] COMPREHEN SIVE METABOLIC PANEL+MG UREA NITROGEN [MASS/VOLUM E] IN SERUM OR PLASMA 14 mg/dL 8 - 26 08/09 Specimen Type: PLASMA No comment entered. Ordering Provider: NADIR FELICIANO Report Released Date/Time: Aug 09, 2022 10:15 AM Reporting Lab: [facility] [address] Performing Lab: [facility] [address] [facility] COMPREHEN SIVE METABOLIC PANEL+MG GLUCOSE [MASS/VOLUM E] IN SERUM OR PLASMA 106 mg/dL 70 - 100 08/09 H Specimen Type: PLASMA No comment entered. Ordering Provider: NADIR FELICIANO Report Released Date/Time: Aug 09, 2022 10:15 AM Reporting Lab: [facility] [address] Performing Lab: [facility] [address] [facility] COMPREHEN SIVE METABOLIC PANEL+MG SODIUM [MOLES/VOLU ME] IN SERUM OR PLASMA 139 mmol/L 136 - 145 08/09 Specimen Type: PLASMA No comment entered. Ordering Provider: NADIR FELICIANO Report Released Date/Time: Aug 09, 2022 10:15 AM Reporting Lab: [facility] [address] Performing Lab: [facility] [address] [facility] COMPREHEN SIVE METABOLIC PANEL+MG POTASSIUM [MOLES/VOLU ME] IN SERUM OR PLASMA 4.5 mmol/L 3.5 - 5.1 08/09 Specimen Type: PLASMA No comment entered. Ordering Provider: NADIR FELICIANO Report Released Date/Time: Aug 09, 2022 10:15 AM Reporting Lab: [facility] [address] Performing Lab: [facility] [address] [facility] COMPREHEN SIVE METABOLIC PANEL+MG CHLORIDE [MOLES/VOLU ME] IN SERUM OR PLASMA 106 mmol/L 98 - 107 08/09 Specimen Type: PLASMA No comment entered. Ordering Provider: NADIR FELICIANO Report Released Date/Time: Aug 09, 2022 10:15 AM Reporting Lab: [facility] [phone] Performing Lab: [facility] [address] [facility] COMPREHEN SIVE METABOLIC PANEL+MG CARBON DIOXIDE, TOTAL [MOLES/VOLU ME] IN SERUM OR PLASMA 26 mmol/L 22 - 29 08/09 Specimen Type: PLASMA No comment entered. Ordering Provider: NADIR FELICIANO Report Released Date/Time: Aug 09, 2022 10:15 AM Reporting Lab: [facility] [address] Performing Lab: [facility] [address] [facility] COMPREHEN SIVE METABOLIC PANEL+MG CALCIUM [MASS/VOLUM E] IN SERUM OR PLASMA 9.1 mg/dL 8.4 - 10.2 08/09 Specimen Type: PLASMA No comment entered. Ordering Provider: NADIR FELICIANO Report Released Date/Time: Aug 09, 2022 10:15 AM Reporting Lab: [facility] [address] Performing Lab: [facility] [address] [facility] COMPREHEN SIVE METABOLIC PANEL+MG PROTEIN [MASS/VOLUM E] IN SERUM OR PLASMA 6.5 g/dL 6.0 - 8.3 08/09 Specimen Type: PLASMA No comment entered. Ordering Provider: NADIR FELICIANO Report Released Date/Time: Aug 09, 2022 10:15 AM Reporting Lab: [facility] [address] Performing Lab: [facility] [address] [facility] COMPREHEN SIVE METABOLIC PANEL+MG ALBUMIN [MASS/VOLUM E] IN SERUM OR PLASMA 3.8 g/dL 3.5 - 5.2 08/09 Specimen Type: PLASMA No comment entered. Ordering Provider: NADIR FELICIANO Report Released Date/Time: Aug 09, 2022 10:15 AM Reporting Lab: [facility] [address] Performing Lab: [facility] [address] [facility] COMPREHEN SIVE METABOLIC PANEL+MG BILIRUBIN.T OTAL [MASS/VOLUM E] IN SERUM OR PLASMA 0.6 mg/dL 0.2 - 1.2 08/09 Specimen Type: PLASMA No comment entered. Ordering Provider: NADIR FELICIANO Report Released Date/Time: Aug 09, 2022 10:15 AM Reporting Lab: [facility] [address] Performing Lab: [facility] [address] [facility] COMPREHEN SIVE METABOLIC PANEL+MG MAGNESIUM [MASS/VOLUM E] IN SERUM OR PLASMA 1.9 mg/dL 1.6 - 2.6 08/09 Specimen Type: PLASMA No comment entered. Ordering Provider: NADIR EFLICIANO Report Released Date/Time: Aug 09, 2022 10:15 AM Reporting Lab: [facility] [address] Performing Lab: [facility] [address] [facility] COMPREHEN SIVE METABOLIC PANEL+MG ANION GAP IN SERUM OR PLASMA 7 mmol/L 5 - 15 08/09 Specimen Type: PLASMA No comment entered. Ordering Provider: NADIR FELICIANO Report Released Date/Time: Aug 09, 2022 10:15 AM Reporting Lab: [facility] [address] Performing Lab: [facility] [address] [facility] COMPREHEN SIVE METABOLIC PANEL+MG ALKALINE PHOSPHATASE [ENZYMATIC ACTIVITY/VO LUME] IN SERUM OR PLASMA 60 U/L 40 - 150 08/09 Specimen Type: PLASMA No comment entered. Ordering Provider: NADIR FELICIANO Report Released Date/Time: Aug 09, 2022 10:15 AM Reporting Lab: [facility] [address] Performing Lab: [facility] [address] [facility] COMPREHEN SIVE METABOLIC PANEL+MG ALANINE AMINOTRANSF ERASE [ENZYMATIC ACTIVITY/VO LUME] IN SERUM OR PLASMA 18 U/L <55 - 55 08/09 Specimen Type: PLASMA No comment entered. Ordering Provider: NADIR FELICIANO Report Released Date/Time: Aug 09, 2022 10:15 AM Reporting Lab: [facility] [address] Performing Lab: [facility] [address] [facility] COMPREHEN SIVE METABOLIC PANEL+MG ASPARTATE AMINOTRANSF ERASE [ENZYMATIC ACTIVITY/VO LUME] IN SERUM OR PLASMA 20 U/L <34 - 34 08/09 Specimen Type: PLASMA No comment entered. Ordering Provider: NAIDR FELICIANO Report Released Date/Time: Aug 09, 2022 10:15 AM Reporting Lab: [facility] [address] Performing Lab: [facility] [address] [facility] COMPREHEN SIVE METABOLIC PANEL+MG GLOMERULAR FILTRATION RATE/1.73 SQ M.PREDICTED [VOLUME RATE/AREA] IN SERUM, PLASMA OR BLOOD BY CREATININE- BASED FORMULA (CKD-EPI) 88 60 08/09 Specimen Type: PLASMA No comment entered. Ordering Provider: NADIR FELICIANO Report Released Date/Time: Aug 09, 2022 10:15 AM Reporting Lab: [facility] [address] Performing Lab: [facility] [address] [facility] HEMOGLOBI N A1C HEMOGLOBIN A1C/HEMOGLO BIN.TOTAL IN BLOOD 5.8 4.0 - 6.0 08/09 Specimen Type: BLOOD Comment: Values obtained from A1C measurement s can vary. For typical A1C assays, a reported value of 7.0 could actually be between 6.7 and 7.3 if measured by a reference method. A reported value of 9.0 could actually be between 8.7 and 9.3. Ref: http://www. ngsp.org/[place] Pdata.asp Ordering Provider: NADIR FELICIANO Report Released Date/Time: Aug 09, 2022 10:15 AM Reporting Lab: [facility] [address] Performing Lab: [facility] [address] [facility] TSH W/REFLEX TO FREE T4 THYROTROPIN [UNITS/VOLU ME] IN SERUM OR PLASMA 0.46 u[IU]/ mL 0.35 - 4.94 08/09 Specimen Type: PLASMA No comment entered. Ordering Provider: NADIR FELICIANO Report Released Date/Time: Aug 09, 2022 10:15 AM Reporting Lab: [facility] [address] Performing Lab: [facility] [address] [facility] Vital Signs Combined list of inpatient and outpatient Vital Signs from Department of Defense and Veterans Affairs, ranging from 12 months to all on record, depending upon the facility. Vital Sign Value Date Comments Source Encounters Combined list of: 1) Encounters from Department of Veterans Affairs facilities going back up to thelast 18 months. 2) Encounters from the Department of Defense facilities going back up to 280 months. Location Location Details Encounter Type Encounter Number Reason For Visit Attending Provider ADM Date DC Date Status Disposition Source JAEL GARCIA [facility] Outpatient Encounter [id number] 12/15 [facility] Outpatient Encounter [id number] 07/11 [facility] OFFICE O/P EST MOD 30-39 MIN [id number] Diagnos is: ICD-10- CM Z00.8 Encount er for other general examina tion
Eugene FELICIANO EBECCA L 08/09 JULIANN Portillo [facility] IMG RTA DETCJ/MNTR DS STAFF [id number] Diagnos is: ICD-10- CM Z01.01 Encount er for exam of eyes and vision w abnorma l finding s
MAXIMILIANO SHAW 08/12 [facility] ADMN SARSCOV2 VACC 1 DOSE [id number] Diagnos is: ICD-10- CM Z23 Encount er for immuniz ation<b r/> SAGATAW,CI NDY 08/12 [facility] Outpatient Encounter [id number] Diagnos is: ICD-10- CM Z01.01 Encount er for exam of eyes and vision w abnorma l finding s
CATERINA DUKES S 08/15 [facility] Outpatient Encounter [id number] 08/22 [facility] Outpatient Encounter [id number] 08/24 [facility] Outpatient Encounter [id number] 12/01 [facility] Social History Combined list of available smoking, tobacco, and other social history from Department of Defense and [facility] Affairs facilities. Social History Type Response Date Comment Sourc e Tobacco smoking status [facility] PA-TOBACCO NEVER USED 08/09/2023 [facility] History of tobacco use PA-TOBACCO QUIT 1 5 YRS OR MORE 08/09/2022 [facility] History of tobacco use VA-TOBACCO FORMER USER 02/26/2021 [facility] History of tobacco use PA-TOBACCO NEVER USED 02/26/2021 [facility] History of tobacco use VA-TOBACCO FORMER USER 01/10/2019 [facility] History of tobacco use FORMER TOBACCO US ER 7Y OR GREATER 02/10/2018 [facility] History of tobacco use FORMER TOBACCO US ER 7Y OR GREATER 02/15/2017 [facility] History of tobacco use FORMER TOBACCO US ER 7Y OR GREATER 01/02/2016 [facility] History of tobacco use INPT NO TOBACCO U SE IN LAST 30 DAYS 10/20/2015 [facility] History of tobacco use FORMER TOBACCO US ER 7Y OR GREATER 02/17/2015 [facility] History of tobacco use FORMER TOBACCO US ER 7Y OR GREATER 05/15/2014 [facility] History of tobacco use LIFETIME NON-[employer] [employer]NAG[employer] USER 09/09/2008 [facility] Plan of Care List of future care activities from [facility] facilities. Additional future care activities may be listed in the Assessment and Plan section. Date/Time Care Activity Care Activity Detail Facili ty 07/24/2024 AMBULATORY - MEDICINE AMBULATORY - MEDICI [facility] 08/16/2024 AMBULATORY - SURGERY AMBULATORY - SURGERY [facility] Advance Directives List of completed, amended, or rescinded Advance Directives on record at [facility] facilities. An actual copy of the Directive is not included. Date Advance Directive Provider Source 05/16/2019 ADVANCE DIRECTIVE [facility] 10/20/2015 CLINICAL WARNING [facility]
--- OUTSIDE RECORDS SUMMARY | 2024-05-21 11:01 | XMS_ITS | Clinical Summary ---
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 180 Tablet 3 06/10/2023 Active aspirin (ECOTRIN) 81 mg enteric coated tablet Take 81 mg by mouth once daily with a meal. 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 90 Tablet 3 08/22/2023 Active Active Problems Problem Noted Date Diagnosed Date Stenosis of left carotid artery 05/21/2021 Coronary artery disease , s/p CABG x3, 10/25 05/0 12/2015 GERD (gastroesophageal reflux disease) 3 Memory loss, short term, very mild, 2012 013 hyperlipidemia 09/28/2010 IGT (impair glucose tolerance) 09/28/2010 Family hx of colon cancer, father and uncle 09/10 Erectile dysfunction 09/28/2010 BPH 09/28/2010 Internal hemorrhoids without mention of complica tion 09/28/2010 Non-recurrent bilateral ingu inal hernia with obstruction without gangrene Resolved Problems Problem Noted Date Diagnosed Date Resolved Date Routine health maintenance 09/28/2010 0 04/20/2021 Mixed hyperlipidemia 09/28/2010 013 Vitamin D deficiency 09/28/2010 021 Encounters Date Type Department Care Team Description 03/08/2024 Orders [address] [facility] Scanner 1 scan: (1-Ord) [place] [facility], PROSTATE BIOPSY, 03/08/2024 from Last 3 Months Immunizations Name Administration Dates Next Due AMB Influenza, IIV4 PF (=>6 mos Flulaval,Fluzone Fluarix)(Flu Clinic Only) 08/06/2014 COVID-19 vaccine (Soxiable 30mcg/0.3mL) PF, MDV 07/29/2021,11/22/2020,11/01/2020 Influenza A (H1N1), Inactivated 11/05/2009 Influenza Virus, Unspecified 07/06/2022, 07/10/2013,10/18/2011,2009,09/09/2009,08/27/2008 Influenza, High-dose Inactivated 09/03/2015 Influenza, High-dose Quadriv alent Inactivated 07/11/2023,07/06/2022 Influenza, IIV3 (Age >=3 years) 08/20/20 13,09/22/2012,09/28/2010,2008,08/22/2008,09/26/2007,09/26/2006,1 11/11/2004,09/03/2003 Influenza, Inactivated IIV3 (Age 65+ Years) Preserv Free 08/06/2019,09/26/2018 Pneumococcal Poly,23-Valent (Pneumovax) 09/26/2008,09/09/2008 Pneumococcal conj 13-Valent (Prevnar 13) 01/08/2017,01/02/2016 Pneumococcal, Unspecified 09/09/2008 TD, UNSPECIFIED 10/10/2004 Td (Age >=7 Years) 09/26/2006,09/09/2006 Tdap 05/15/2014 Zoster (Shingrix-RZV, recombinant) 04/16/2019, Zoster (Zostavax-ZVL, live) 11/05/2009, 0 Family History Medical History Relation Name Comments Cancer-colon Father Heart Disease Father Cancer-colon Paternal Grandfather Relation Name Status Comments Father Paternal Grandfather Social History Tobacco Use Types Packs/Day Years Used Date Smoking Tobacco: Former Cigarettes 0.3 10 1 956 - 1965 Pipe Smokeless Tobacco: Never Tobacco Cessation:Counseling Given: Not Answered Comments:started at age ~16; quit ~1965 - [place] Alcohol Use Standard Drinks/Week Comments Yes 7 (1 standard drink = 0.6 oz pure alcohol) one glass of wine in the evening PHQ-2 Answer Date Recorded PHQ-2 TOTAL SCORE 0 06/10/2023 Social Connections Answer Date Recorded Frequency of Communication with Friends and Fami ly 0 11/19/2022 Financial Resource Strain Answer Date R ecorded Difficulty of Paying Living Expenses 3 11/19/2022 Difficulty of Paying Living Expenses Not on file 11/19/2022 Food Insecurity Answer Date Recorded Worried About Running Out of Food in the Last Ye ar 1 11/19/2022 Transportation Needs Answer Date Record ed Lack of Transportation (Medical) 1 11/19/2022 Housing Stability Answer Date Recorded Unable to Pay for Housing in the Last Year 1 11/19/2022 Sex and Gender Information Value Date Recorded Sex Assigned at Not on file Gender Identity Not on file Sexual Orientation Not on file Obstetrics History Last Filed Vital Signs Vital Sign Reading Time Taken Comments Blood Pressure 128/80 11/29/2023 10:32 AM [employer] Pulse 60 11/29/2023 10:32 AM [employer] OPERATOR Temperature 36.2 ??C (97.1 ??F) 11/29/2022 4:41 PM CS T Respiratory Rate 16 11/29/2022 5:15 PM [employer] OPERATOR Oxygen Saturation 96% 11/29/2023 10:32 AM [employer] OPERATOR Inhaled Oxygen Concentration - - Weight 65.8 kg (145 lb) 08/29/2023 1:14 PM [employer] OPERATOR Height 164.5 cm (5' 4.75) 06/10/2023 11:12 AM C DT Body Mass Index 24.32 06/10/2023 11:12 AM CDT Plan of Treatment Health Maintenance Due Date Last Done Comments COVID-19 vaccine series ( season) 2023 08/12/2023, 07/06/2022, 07/29/2021, Additional history exists Tetanus booster 05/15/2024 05/15/2014, 09/09, 09/09/2006, Additional history exists BMI (ht and wt on same day) for age 18+ 06/10/2024 06/10/2023, 11/19/2022, 10/28/2022, Additional history exists Depression screening for age 12+ 06/10/2024 06/10/2023, 09/15/2022, 09/13/2022, Additional history exists Influenza for age 65+ 06/10/2024 07/11/2023 , 07/06/2022, 07/06/2022, Additional history exists Medicare Wellness for age 65+ 06/10/2024, 04/20/2021, 09/26/2018, Additional history exists Tdap Completed 05/15/2014 Pneumococcal series for age 65+ Completed 01/08/2017, 01/02/2016, 09/26/2008, Additional history exists Zoster (shingles) series for age 50+ Completed 04/16/2019, 02/07/2019, 11/05/2009, Additional history exists Medical Devices Implanted Type Area Clothes Designer Device Identifier Shelf Expiration Date Model / Serial / Lot Mesh Inguinal Rt [id number] 3-D Max Mid Xlg - [id number] Implanted:Qty: 1 on 11/29/2022 by Elio Hilton MD at [facility] Right: Inguinal [employer] 07/07/2027 [id number] / / [id number] Mesh Inguinal Lt [id number] 3-D Max Mid Xlg - [id number] Implanted:Qty: 1 on 11/29/2022 by Elio Hilton MD at [facility] Left: Inguinal [employer] 06/17/2027 [id number] / / [id number] Procedures Procedure Name Priority Date/Time Associated Diagnosis Comments SCAN-OPERATIVE/PROC EDURE REPORT 03/08/2024 12:00 AM CDT from Last 3 Months Results * SCAN-OPERATIVE/PROCEDURE REPORT (03/08/2024 12:00 AM CDT) Scanner OTHER from Last 3 Months Advance Directives Documents on File Type Date Recorded 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
--- OUTSIDE RECORDS SUMMARY | 2024-05-21 11:01 | XMS_ITS | Continuity of Care Document ---
Author Organization [facility] Address [address] [place] [address] Care Team Providers Care Machine Load Clerk Name Role Phone DIONNE COTTO Referring Provider Assessment No assessment recorded. Plan of Treatment Reminders Order Date Submit Date Provider Last Modified By Organization Details Last Modified Time Details Appointments None recorded. Lab None recorded. Referral radiation oncologist referral 2023 024 YINA Foster MD, [address] [place], [address], 4 08:17:34 Procedures None recorded. Surgeries None recorded. Imaging None recorded. Medication Orders None recorded. Patient TargetsNo targets recorded. Patient InstructionsNo instructions recorded. Reason for Referral Referring Physician: Darrin Rosay, Encounter Date: 04/02/2024 Problems Name Status Onset Date Resolution Date Notes Provider Name and Address Organization Details Recorded Time Prostate specific antigen above reference range Active 4 Tonio Bhatt MD [address] [place] [address],[address], [phone], [facility] 01/04/2024 12:31:19 Malignant tumor of prostate Active 4 Tonio Bhatt MD [address] [place] [address],[address], [address], [facility] 04/02/2024 17:58:30 Problem Notes None recorded. Procedures Surgical History Date Name Laterality Status Provider Name and Address Organization Details Recorded Time 4 COMPLEX VISIT completed Tonio Bhatt MD [address] [place] [address],[address], [phone], [facility] 04/02/2024 17:58:21 4 Prostate Biopsy Procedure completed Tonio Bhatt MD [address], [place], [address], [facility] 03/08/2024 11:46:16 4 Rocephin/Ceftri axone completed Sofia coleman [facility] 03/08/2024 11:07:02 4 URONAV completed Tonio Bhatt MD [address], [place], [address], [facility] 03/08/2024 11:46:23 4 [facility] 04/02/[facility]24 17:25:27 Imaging Results None recorded. Procedure Notes None recorded. Medical Equipment None Reported. Allergies No known drug allergies Medications Name Sig Start Date Stop Date Status Note LastModified by Organization Details LastModified Time metoprolol tartrate 100 mg-hydrochl orothiazide 50 mg tablet Take 1 tablet every day by oral route. active Not Available Not Available No t Available ceftriaxone 1 gram solution for injection Take 1 g by injection route. 04/02 completed Not Available Not Available Not Available rosuvastati n 40 mg tablet Take 1 tablet every day by oral route. active Not Available Not Available No t Available aspirin 81 mg capsule Take 1 capsule every day by oral route. active Not Available Not Available No t Available Vitals Date Recorded Body height Body mass index (BMI) Body weight Provider Name and Address Organization Details Last Updated DateTime 04/02/2024 167.64 cm 22.9 kg/m2 75688.12 g Willam Brown [facility] 04/02/2024 17:24:55 Social History Question Answer Notes LastModified by Organizat ion Details LastModified Time Tobacco Smoking Status Never Smoker Willam coleman [facility] 01/04/2024 11:51:16 What Is Your Level Of Alcohol Consumption? Occasional Information not available 04/02/2024 What Is Your Level Of Caffeine Consumption? None Information not available 04/02/2024 What Was The Date Of Your Most Recent Tobacco Screening? 04/02/2024 Information not available 04/02/2024 Have You Ever Been Counseled For Unhealthy Alcohol Use? No Information not available 04/02/2024 Do You Use Any Illicit Or Recreational Drugs? No Information not available 01/04/2024 Has Tobacco Cessation Counseling Been Provided? No Information not available 01/04/2024 Do You Or Have You Ever Used Any Other Forms Of Tobacco Or Nicotine? No Information not available 01/04/2024 How Many Days In The Past Year Have You Consumed 5 Or More Drinks? 0 Information no t available 04/02/2024 Sex: Unknown Functional Status None recorded. Mental Status None recorded. Family History Relationship Description Onset Age of this Age Resolved Age Notes Father No current problems or disability Mother No current problems or disability Medical History Condition Response Other N High Blood Pressure N Kidney Stones N Lung Disease N Depression N GERD/Acid Reflux N Sexually Transmitted Infection N Cancer N High Cholesterol N Diabetes N Bleeding Disorder N Heart Disease N Immunizations Vaccine Type Date Status Provider Name and Address Organization Details Recorded Time Influenza, adjuvanted, trivalent, PF 08/06/2019 completed [facility] 01/04/2024 11:50:53 Influenza, adjuvanted, trivalent, PF 09/26/2018 [facility] 11:50:53 Influenza, high-dose, quadrivalent, PF 07/06/2022 completed [facility] 01/04/2024 11:50:53 Influenza, high-dose, quadrivalent, PF 07/11/2023 completed [facility] 01/04/2024 11:50:53 COVID-19, mRNA, LNP-S, bivalent, PF, 30 mcg/0.3 mL dose 07/06/2022 completed [facility] 01/04/2024 11:50:53 COVID-19, mRNA, LNP-S, PF, lashawn-sucrose, 30 mcg/0.3 mL 08/12/2023 completed Dezera Sieracki null, [facility] 01/04/2024 11:50:53 pneumococcal polysaccharide PPV23 09/09/2008 completed Dezera Sieracki null, [facility] 01/04/2024 11:50:53 pneumococcal polysaccharide PPV23 09/26/2008 completed Dezera Sieracki null, [facility] 01/04/2024 11:50:53 Pneumococcal conjugate PCV 13 01/08/2017 completed Dezera Sieracki null, [facility] 01/04/2024 11:50:53 zoster live 10/10/2009 completed Dezera Sieracki null, [facility] 01/04/2024 11:50:53 Influenza, high-dose, trivalent, PF 09/03/2015 completed Dezera Sieracki null, [facility] 01/04/2024 11:50:53 Influenza, split virus, trivalent, preservative 07/04/2009 completed Dezera Sieracki null, [facility] 01/04/2024 11:50:53 Influenza, split virus, trivalent, preservative 08/20/2013 completed Dezera Sieracki null, [facility] 01/04/2024 11:50:53 Influenza, split virus, trivalent, preservative 08/22/2008 completed Dezera Sieracki null, [facility] 01/04/2024 11:50:53 Influenza, split virus, trivalent, preservative 09/03/2003 completed Dezera Sieracki null, [facility] 01/04/2024 11:50:53 Influenza, split virus, trivalent, preservative 09/10/2005 completed Dezera Sieracki null, [facility] 01/04/2024 11:50:53 Influenza, split virus, trivalent, preservative 09/22/2012 completed Dezera Sieracki null, [facility] 01/04/2024 11:50:53 Influenza, split virus, trivalent, preservative 09/26/2006 completed Dezera Sieracki null, [facility] 01/04/2024 11:50:53 Influenza, split virus, trivalent, preservative 09/26/2007 completed Dezermally Tapiai null, [facility] 01/04/2024 11:50:53 Influenza, split virus, trivalent, preservative 09/28/2010 completed Dezera Sieracki null, [facility] 01/04/2024 11:50:53 Td (adult), 2 Lf tetanus toxoid, preservative free, adsorbed 09/09/2006 completed Dezera Sieracki null, [facility] 01/04/2024 11:50:53 Td (adult), 2 Lf tetanus toxoid, preservative free, adsorbed 09/26/2006 completed Dezera Sieracki null, [facility] 01/04/2024 11:50:53 Influenza, split virus, quadrivalent, PF 08/06/2014 completed Willam Brown null, [facility] 01/04/2024 11:50:53 Past Encounters Encounter ID Performer Location Encounter Start Date Encounter Closed Date Diagnosis/Indication Diagnosis SNOMED-CT Code [id number] Tonio Bhatt MD [facility] [address] [address] 03/08/2024 10:49:12 03/15/2024 11:29:55 Prostate specific antigen above reference range [id number] Tonio Bhatt MD [place] [id number] [place] [address] 04/02/2024 16:33:36 04/11/2024 16:10:40 Malignant tumor of prostate [id number] Health Concerns Section Related Observation LastModified by Organization Detai ls LastModified Time None Recorded Concern Status LastModified by Organization Details LastModified Time None Recorded Payers Encounter Date Sequence Insurance Name Policy Number Policy Dia Covered Member ID Dia Member ID Guarantor Name 04/02/2024 1 [employer] (MEDICARE REPLACEMENT/A DVANTAGE - PPO) Rudy May [id number] Rudy May 04/02/2024 2 MED[place]: Interior [employer] [facility] Rudy May [id number] Rudy May Notes Date Note Type Note Provider Name and Address Organization Details Recorded Time 04/02/2024 text/html HPI Notes: : Very pleasant 83-year-old gentleman referred for elevated PSA. It is unclear to me why he is undergoing PSA screening at age 83. He reportedly had a PSA of 5.15 in 2021. I reviewed the most recent clinic note from Dr. Cotto dated 08/29/2023. His last PSA at [facility] was 8.37 on 11/29/2023, previously 6.43 in August. No family history of prostate cancer. No bothersome urinary symptoms. He has a history of a left total hip arthroplasty but no prior abdominal surgery. 03/08/24: Prostate MRI on 01/24/2024 shows 36 cm?? prostate with 2.0 x 1.2 cm PI-RADS 5 lesion at the right peripheral zone apex. No evidence of extracapsular extension or metastatic disease. Presents today for biopsy with [facility]. 04/02/24: Prostate biopsy on 03/08/2024 shows Yesika grade 3+4 = 7 prostate cancer in up to 85% of the biopsy cores bilaterally and Hamburg grade 3+3 = 6 prostate cancer in 80% of 2 cores from the MRI lesion. He is here along with his for prostate cancer counseling. Tonio Bhatt MD [address], [place], [address], [facility] 04/02/2024 18:01:14
--- OUTSIDE RECORDS SUMMARY | 2024-05-21 11:01 | XMS_ITS | Encounter Summary ---
Author Name [facility] [place] Organization [facility] [place] Address [address] [place] [address] Care Team Providers Care Statement Clerks Supervisor Name Role Phone GERRY FELICIANO Primary Care [...] Name Patient's Relationship to Policy Dia [facility]NA [facility] ([facility]) MEDICARE ADVANTAGE MCR ([facility]) Oct 10, 2021 [id number] KLEPPERIC H,ARAMIS PATIENT HUMANA MCR ([facility]) MEDICARE [facility] ([facility]) Oct 10, 2017 [id number] KLEPPERIC H,ARAMIS PATIENT HUMANA MCR (R) MEDICARE [facility] ([facility]) Oct 10, 2017 [id number] KLEPPERIC H,ARAMIS PATIENT MEDICA MCR ([facility]) MEDICARE ADVANTAGE MCR ([facility]) Oct 10, 2022 [id number] KLEPPERIC H,ARAMIS PATIENT Selected Encounter This section includes the information on record at [place] for the Encounter. Date/Time Encounter Type Encounter Description Reason Provider Source Aug 12, 2023 01:00 PM IMG RTA DETCJ/MNTR DS STAFF OPHTHALMOLOGY ICD-10-CM Z01.01 Encounter for exam of eyes and vision w abnormal findings MAXIMILIANO SHAW E Encounter Template Text not used by [facility] Assessments - Encounter Diagnoses This section includes the primary and secondary diagnoses documented for the Encounter. Date/Time Primary/Secondary Diagnosis Diagnosis Name Provider Source Aug 12, 2023 01:10 PM PRIMARY Encounter for exam of eyes and vision w abnormal findings MAXIMILIANO SHAW [facility] Lab Results: +/- 30 days of the encounter This section includes the Chemistry and Hematology Lab Results on record with [place] for the patient. Radiology Reports and Pathology Reports are provided separately, in subsequent sections. Lab Results This section contains the Chemistry/Hematology Results that were resulted 30 days before or 30 daysafter the date of the Encounter. Date/Time Source Result Type Result - Unit Interpretation Reference Range Comment Aug 09, 2023 09:36 AM [employer] COMPREHENSIVE METABOLIC PANEL+MG Specimen Type: PLASMA No comment entered. Ordering Provider: KATHRYN FELICIANO Report Released Date/Time: Aug 09, 2023 09:29 AM Reporting Lab: [facility] [id number] Performing Lab: [facility] [id number] CREATININE 0.8 mg/dL 0.7-1.2 UREA NITROGEN 16 [...] 88 >60 Aug 09, 2023 09:36 AM TONY MOISE CBC & DIFF Specimen Type: BLOOD Comment: Automated Differential Performed Ordering Provider: KATHRYN FELICIANO Report Released Date/Time: Aug 09, 2023 09:29 AM Reporting Lab: [facility] [id number] Performing Lab: [facility] [id number] WBC 5.68 10*3/uL 4.0-11.0 RBC 4.63 10*6/uL [...] 0.7 ABS IMMATURE GRAN 0.04 10*3/uL 0-0.1 Social History: Smoking Status (Most current) and Tobacco Use (All prior to encounter date) This section includes the most current, and the historical, smoking and tobacco- related health factors from the [place] facility where the Encounter took place. Current Smoking Status This section includes the most current smoking, or tobacco-related health factor, from the [place] facility where the Encounter took place. Date/Time Current Smoking Status Comment Yan ity February 26, 2021 06:49 PM VA-TOBACCO FORMER USER [facility] Tobacco Use History This section includes a history of the smoking, or tobacco-related health factors, that were collected on or before the date of the Encounter. The data comes from the [place] facility where the Encounter took place. Date/Time Smoking Status/Tobacco Use Comment F acility February 26, 2021 06:51 AM VA-TOBACCO NEVER USED [facility] Oct 20, 2015 03:17 PM INPT NO TOBACCO USE IN LAST [address] [facility] May 15, 2014 01:37 PM FORMER TOBACCO USER 7Y OR GREATE R [facility] Sep 09, 2008 10:33 AM LIFETIME NON-TOBACCO USER [facility] Advance Directives: All historical and current Section Date Range: From patient's date of to the date document was created. This section includes ALL of a patient's completed or amended [place] Advance and Rescinded Directives. The entries below indicate that a directive exists for the patient, but an actual copy is not included with this document. The data comes from all [place] facilities. Date Advance Directives Provider Source May 16, 2019 ADVANCE DIRECTIVE DISCUSSION [facility] May 16, 2019 ADVANCE DIRECTIVE [facility] Oct 20, 2015 CLINICAL WARNING [facility] Encounter Notes: All associated encounter notes This section contains the clinical notes associated to the Encounter. 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 Recommendations/findings will be conveyed to them via phone call, video chat, and/or letter. Yes Patient verbalized understanding and agreed to participate in the [facility] telemedicine eye exam today. Yes [facility] Visit Type: Ocular Disease Monitoring COMPREHENSIVE SCREEN: HISTORY: Chief Complaint: 1 year TECS follow up. Conway reports no vision changes. It's fairly good yet. Denies flashes/floaters/double vision. Denies ocular discomfort, tearing. History of Present Illness: dry eyes OU. cataract OU. AAMD OU. Last Eye Exam: Less than 1 year ago [facility] Type of eye exam: TECS TECS HISTORY & REVIEW OF SYSTEMS No pain, decreased vision, sudden change in flashes or floaters, or sudden onset double vision. 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 SOCIAL HISTORY: 08/11/2022 Tecs Tobacco Hx-No 08/12/2023 remains non-smoker EYE MEDICATION(S): No Current Eye Medications REFRACTION AND VISION: Wearing Rx (WRx): OD: +2.75 +1.00 x 174 OS: +2.50 +1.75 x 003 Conway is happy with current eyeglass style Current Style: PAL Current Glasses Condition: Other: scratches WRx VA: OD: -2 OS: -+2 Manifest Refraction (MRx): OD: +2.50 +1.00 x 180 +2.50 add OS: +2.50 +1.75 x 180 +2.50 add Final MRx VA: OD: 20/25+2 OS: 2020-1 FINAL RX OD: +2.50 +1.00 x 180 +2.50 add OS: +2.50 +1.75 x 180 +2.50 add Rx Comments: PAL,A/R,Trivex,Transitions Extraocular Movement: OU: Full Confrontation Visual Field: OU: Full PACHYMETRY: Pachymetry Past Results: No data available PACHYMETRY OD: 567 OS: 555 INTRAOCULAR PRESSURE (IOP): Method: Date/Time: Nov 3,2023@13:00 Rebound Tonometer OD: 14 OS: 13 PUPILS/ANTERIOR CHAMBER (AC) Penlight or slit lamp (if available) exam abnormal findings Which eye? OS Findings: left lower lid lag nasal aspect; reddened in this area Pupils are equal, round, and reactive to light No afferent defect Pupils are dilated - Side effects of dilation medication discussed, patient stated clear understanding, and patient consented to dilation. - Patient advised not to drive if they feel they have any symptoms which could affect their ability to drive safely. - Patient advised not to engage in any activities which could put themselves or others at risk if they feel they have any symptoms which could affect their ability to perform those activities safely. - Post-mydriatic glasses discussed and dispensed to reduce light sensitivity and increase comfort in bright sunlight. - Patient instructed to report to Eye Clinic or Emergency Room IMMEDIATELY if severe eye pain, facial pain, loss of vision or cloudy vision, severe headaches, or nausea occurs. Medication: 1% Tropicamide, 0.5% Proparacaine Date/Time: Aug@13:01 Which Eye? OD How many drops? 1 ea OS How many drops? 1 ea IMAGING/TESTING: Fundus Photographs were done at this encounter Optical Coherence Tomography (OCT) was done at this encounter The patient DID have Optical Coherence Tomography done - Macula CATARACT EVALUATION/COMMUNITY CARE/VOICEMAIL/HANDOUTS: The patient does NOT desire a cataract surgery evaluation The patient IS willing to go to community care if applicable Per , okay to leave message regarding results and plan of care. Telephone number and address verified. Yes CONSULT ORDERS: Patient communication preferences Best Contact Number: [phone] Voicemail set up: Yes Preferred Contact Method:* Patient prefers to be called with results regardless of exam findings Appendix (abbreviations): AC (Anterior Chamber); AREDS (Age Related Eye Disease Study); ARX (Auto Refraction); BID (Two Times Daily); C:D (Cup-to-Disc); CIC (Care In The Community); SPA THERAPIST (Cyclophotocoagulation); CSME (Clinically Significant Macular Edema); DFE (Dilated Fundus Exam); Dorz/Timol (Dorzolamide/Timolol); DSEK (Descemet's Stripping Endothelial Keratoplasty); FAF (Fundus Autofluorescence); F/U (Follow up); GCC (Ganglion Cell Complex); Gonio (Gonioscopy); H/O (History Of); HTN (Hypertension); HVF (Gautam Visual Field); IOL (Intraocular Lens); IOP (Intraocular Pressure); K (Keratometry); LASIK (Laser-Assisted In Situ Keratomileusis); MD (Mean Deviation when used with visual field); dB (decibels); MRx (Manifest Refraction); NeoPolyDex/Erythro (Neomycin Polymyxin B Dexamethasone/Erythromycin) ; NFL (Nerve Fiber Layer); NPDR (Nonproliferative Diabetic Retinopathy); OCT (Optical Coherence Tomography); OD (Right Eye); OS (Left Eye); OU (Both Eyes); PDR (Proliferative Diabetic Retinopathy); PFATs (Preservative Free Artificial Tears); RK (Radial Keratotomy); RNFL (Retinal Nerve Fiber Layer); RTC (Return To Clinic); scVA (Visual Acuity Without Correction/Glasses); ARMEN (Luxembourger Interactive Threshold Algorithm); TID (Three Times Daily); UV (Ultraviolet); VA (Visual Acuity); WRx (Prescription glasses currently worn); WRx VA (Visual Acuity With Prescription Glasses); YAG (Yttrium Aluminum Remlap) /zander/ MAXIMILIANO SHAW [facility] LOCK STITCH CHANNELER OPHTHALMOLOGY Signed: 08/12/2023 13:[address] [facility]
--- OUTSIDE RECORDS SUMMARY | 2024-05-21 11:01 | XMS_ITS | Data Portability ---
Author Organization [place] [facility] [place] [facility] Address [address] [place] [address] Care Team Providers Care Cad Specialist Name Role Phone DIONNE COTTO Referring Provider Assessment No assessment recorded. Plan of Treatment Reminders Order Date Submit Date Provider Last Modified By Organization Details Last Modified Time Details Appointments None recorded. Lab None recorded. Referral radiation oncologist referral 2023 024 ATHENAFAX Sergio Foster MD, [address] [place], [address], 4 09:20:47 Procedures None recorded. Surgeries None recorded. Imaging MRI, prostate, w/wo contrast - Please call pt to schedule, thanks 2023 024 [facility], [address] [place], [address], 4 11:53:24 Medication Orders ceftriaxon e 1 gram solution for injection 2023 024 [facility] [id number] [employer], [facility] [address], [address], 4 17:25:00 Patient TargetsNo targets recorded. Patient InstructionsNo instructions recorded. Reason for Referral Referring Physician: Tonio Bhatt, Urology, Encounter Date: 04/02/2024 Results Created Date Observation Date Name Description Value Unit Range Abnormal Flag LastModifiedBy Organization Detail LastModifiedTime 01/27/20 24 01/24/2024 MRI, prost ate, w/wo contr ast No observ ation record ed. [facility] [address] [place], [address], 01/30/2024 17:11:38 Result Notes None recorded. Problems Name Status Onset Date Resolution Date Notes Provider Name and Address Organization Details Recorded Time Prostate specific antigen above reference range Active 4 Tonio Bhatt MD [address] [place] [address],[address], [address], [facility] 01/04/2024 12:31:19 Malignant tumor of prostate Active 4 Tonio Bhatt MD [address] [place] [address],[facility] [address], [place], [address], [facility] 04/02/2024 17:58:30 Problem Notes None recorded. Procedures Surgical History Date Name Laterality Status Provider Name and Address Organization Details Recorded Time 4 COMPLEX VISIT completed Tonio Bhatt MD [address] [place] [address],[address], [address], [facility] 04/02/2024 17:58:21 4 Prostate Biopsy Procedure completed Tonio Bhatt MD [address] [place] [address],[facility] [address], [address], [facility] 03/08/2024 11:46:16 4 Rocephin/Ceftri axone completed Sofia coleman, [facility] 03/08/2024 11:07:02 4 URONAV completed Tonio Bhatt MD [address] [place] [address],[address], [place], [address], [facility] 03/08/2024 11:46:23 4 Colonoscopy completed Willam coleman, [facility] 04/02/2024 17:25:27 Imaging Results Imaging Date Name Status LastModified by Organiz ation Details LastModified Time 01/24/2024 MRI, prostate, w/wo contrast completed [facility] [address] [place], [address], 01/30/2024 17:11:38 Procedure Notes None recorded. Medical Equipment None [...] No t Available Vitals Date Recorded Body weight Body mass index (BMI) Body height Provider Name and Address Organization Details Last Updated DateTime 01/04/2024 80476.12 g 22.9 kg/m2 167.64 cm Lisa Rodrigues [facility] 01/04/2024 12:13:58 Date Recorded Body height Body mass index (BMI) Body weight Provider Name and Address Organization Details Last Updated DateTime 03/08/2024 167.64 cm 22.9 kg/m2 90437.12 g Sofia Navarro [facility] 03/08/2024 11:06:42 Date Recorded Body height Body mass index (BMI) Body weight Provider Name and Address Organization Details Last Updated DateTime 04/02/2024 167.64 cm 22.9 kg/m2 01354.12 g Willam Brown [facility] 04/02/2024 17:24:55 Social History Question Answer Notes LastModified by Organizat ion Details LastModified Time Tobacco Smoking Status Never Smoker Willam coleman [facility] 01/04/2024 11:51:16 What Is Your Level Of [...] GERD/Acid Reflux N Sexually Transmitted Infection N Diabetes N Bleeding Disorder N Cancer N High Cholesterol N Heart Disease N Immunizations Vaccine Type Date Status Provider Name and Address Organization Details Recorded Time Influenza, adjuvanted, trivalent, PF 08/06/2019 [facility] 01/04/2024 11:50:53 Influenza, adjuvanted, trivalent, PF 09/26/2018 completed [facility]au[facility]emoczera [facility] 01/04/2024 11:50:53 Influenza, high-dose, quadrivalent, PF 07/06/2022 completed Willam Brown [facility] 01/04/2024 11:50:53 Influenza, high-dose, quadrivalent, PF 07/11/2023 [facility] 01/04/2024 11:50:53 COVID-19, mRNA, LNP-S, bivalent, PF, 30 mcg/0.3 mL dose 07/06/2022 completed [facility]a [facility] 01/04/2024 11:50:53 COVID-19, mRNA, LNP-S, PF, lashawn-sucrose, 30 mcg/0.3 mL 08/12/2023 [facility] 01/04/2024 11:50:53 pneumococcal polysaccharide PPV23 09/09/2008 [facility] 01/04/2024 11:50:53 pneumococcal polysaccharide PPV23 09/26/2008 completed Dezera Sieracki null, [facility] 01/04/2024 11:50:53 Pneumococcal conjugate PCV 13 01/08/2017 completed Dezera Sieracki null, [facility] 01/04/2024 11:50:53 zoster live 10/10/2009 completed Dezera Sieracki null, [facility] 01/04/2024 11:50:53 Influenza, high-dose, trivalent, PF 09/03/2015 completed Dezera Sieracki null, [facility] 01/04/2024 11:50:53 Influenza, split virus, trivalent, preservative 07/04/2009 completed Dezera Sieracki null, [facility] 01/04/2024 11:50:53 Influenza, split virus, trivalent, preservative 08/20/2013 completed Dezera Sieracki null, [facility] 01/04/2024 11:50:53 Influenza, split virus, trivalent, preservative 08/22/2008 completed Dezera Sieracki null, [facility] 01/04/2024 11:50:53 Influenza, split virus, trivalent, preservative 09/03/2003 completed Dezera Sieracki null, [facility] 01/04/2024 11:50:53 Influenza, split virus, trivalent, preservative 09/10/2005 completed Dezera Sieracki null, [facility] 01/04/2024 11:50:53 Influenza, split virus, trivalent, preservative 09/22/2012 completed Dezera Sieracki null, [facility] 01/04/2024 11:50:53 Influenza, split virus, trivalent, preservative 09/26/2006 completed Dezera Sieracki null, [facility] 01/04/2024 11:50:53 Influenza, split virus, trivalent, preservative 09/26/2007 completed Dezera Sieracki null, [facility] 01/04/2024 11:50:53 Influenza, split virus, trivalent, preservative 09/28/2010 completed Willam coleman, [facility] 01/04/2024 11:50:53 Td (adult), 2 Lf tetanus toxoid, preservative free, adsorbed 09/09/2006 completed Willam coleman, [facility] 01/04/2024 11:50:53 Td (adult), 2 Lf tetanus toxoid, preservative free, adsorbed 09/26/2006 completed Willam Tapiai null, [facility] 01/04/2024 11:50:53 Influenza, split virus, quadrivalent, PF 08/06/2014 completed Willam coleman, [facility] 01/04/2024 11:50:53 Past Encounters Encounter ID Performer Location Encounter Start Date Encounter Closed Date Diagnosis/Indication Diagnosis SNOMED-CT Code [id number] Tonio Bhatt MD [address] [address] 01/04/2024 11:28:33 01/05/2024 12:49:03 Prostate specific antigen above reference range [id number] Tonio Bhatt MD [facility] [address] [address] 03/08/2024 10:49:12 03/15/2024 11:29:55 Prostate specific antigen above reference range [id number] Tonio Bhatt MD [address] [place] [address] 04/02/2024 16:33:36 04/11/2024 16:10:40 Malignant tumor of prostate [id number] Health Concerns Section Related Observation LastModified by Organization Detai ls LastModified Time None Recorded Concern Status LastModified by Organization Details LastModified Time None Recorded Advance Directives Directive None Recorded Payers Encounter Date Sequence Insurance Name Policy Number Policy Dia Covered Member ID Dia Member ID Guarantor Name 01/04/2024 1 [employer] (MEDICARE REPLACEMENT/A DVANTAGE - PPO) Rudy May [id number] Rudy Vanceh 01/04/2024 2 [place] [facility] Rudy Garsia Klepperich [id number] Rudy Garsia Klepperich 03/08/2024 1 [employer] (MEDICARE REPLACEMENT/A DVANTAGE - PPO) Rudy Garsia Klepperich [id number] Rudy Garsia Klepperich 03/08/2024 2 [place] [facility] Rudy Garsia Klepperich [id number] Rudy Garsia Klepperich 04/02/2024 1 [employer] (MEDICARE REPLACEMENT/A DVANTAGE - PPO) Rudy Garsia Klepperich [id number] Rudy Garsia Klepperich 04/02/2024 2 [place] [facility] Rudy Garsia Klepperich [id number] Rudy Garsia Klepperich Notes Date Note Type Note Provider Name and Address Organization Details Recorded Time 01/04/2024 text/html HPI Notes: Very pleasant 83-year-old gentleman referred for elevated PSA. It is unclear to me why he is undergoing PSA screening at age 83. He reportedly had a PSA of 5.15 in 2021. I reviewed the most recent clinic note from Dr. Cotto dated 08/29/2023. His last PSA at [facility] was 8.37 on 11/29/2023, previously 6.43 in August. No family history of prostate cancer. No bothersome urinary symptoms. He has a history of a left total hip arthroplasty but no prior abdominal surgery. Tonio Bhatt MD [address] [place] [address],[address], [place], [address], [facility] 01/04/2024 12:49:13 03/08/2024 text/html HPI Notes: : Very pleasant 83-year-old gentleman referred for elevated PSA. It is unclear to me why he is undergoing PSA screening at age 83. He reportedly had a PSA of 5.15 in 2021. I reviewed the most recent clinic note from Dr. Cotto dated 08/29/2023. His last PSA at [facility] was 8.37 on 11/29/2023, previously 6.43 in [...] disease. Presents today for biopsy with [facility]. Tonio Bhatt MD [address], [place], [address], [facility] 03/08/2024 11:46:54 04/02/2024 text/html HPI Notes: : Very pleasant 83-year-old gentleman referred for elevated PSA. It is unclear to me why he is undergoing PSA screening at age 83. He reportedly had a PSA of 5.15 in 2021. I reviewed the most recent clinic note from Dr. Cotto dated 08/29/2023. His last PSA at [facility] was 8.37 on 11/29/2023, previously 6.43 in [...] [facility]. 04/02/24: Prostate biopsy on 03/08/2024 shows [place] grade 3+4 = 7 prostate cancer in up to 85% of the biopsy cores bilaterally and Yesika grade 3+3 = 6 prostate cancer in 80% of 2 cores from the MRI lesion. He is here along with his for prostate cancer counseling. Tonio Bhatt MD [address] [facility], [place], [address], [facility] 04/02/2024 18:01:14
--- NOTE | 2024-05-21 11:30 | CRLHL7_ITS ---
For Patients: As a result of the Century Cures Act, medical imaging exams and procedure reports are released immediately into your electronic medical record. You may view this report before your referring provider. If you have questions, please contact your health care provider. Indication: Hip pain Technique: Pelvis and left hip 3 views Comparison: 01/19/2023 Findings: Left hip replacement hardware is intact without fracture or loosening. No suspicious osseous lesion is present. Vascular calcifications noted. Spurring at the iliac bone bilaterally. Narrowing and spurring at the right hip joint. Intact pubic rami and sacrum. Degenerative changes lower lumbar spine. Impression: No findings to explain pain. Dictated by Delio Sanchez MD @ 05/21/2024 11:24:29 AM (Electronically Signed)
== END 2024-05-21 10:57 | disposition home or self-care (01) ==
PROVIDERS: PCP Family Medicine; Visit Provider Internal Medicine
DX: M25.552 Pain in left hip (principal)
CPT/HCPCS: 73502

== ENCOUNTER 2024-06-14 07:23 | Outpatient (CLI) | payer OTHER, SELFPAY ==
--- OUTSIDE RECORDS SUMMARY | 2024-06-14 07:25 | XMS_ITS | Continuity of Care Document ---
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 It does not include entries that were removed or entered in error. 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 [facility] Hyperlipidemia (SNOMED CT 95664550) Active Condition [facility] Hypertension Active Condition [facility] Impacted cerumen Active Condition [facility] Indigestion Active Condition [facility] Knee pain Active Condition [facility] Neck pain Active Condition [facility] 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) [facility] Reflux Active Condition [facility] Supraventricular tachycardia Active Condition [facility] Tinnitus * (ICD-9-CM 388.30) Active Condition [facility] Diagnosis: ICD-10-CM Z01.01 Encounter for exam of eyes and vision w abnormal findings Active Diagnosis [facility] Diagnosis: ICD-10-CM Z23 Encounter for immunization Active Diagnosis [facility] Diagnosis: ICD-10-CM Z00.8 Encounter for other general examination Active Diagnosis [facility] Medications Combined list of outpatient medications from Department of [facility] and [facility] facilities.Medications provided include 1) outpatient medications from the last 15 months, and 2) patient-reported medications. Medication Details Route Status Patient Instructions Prescription Expires Prescription Number Last Dispense Date Ordering Provider Order Date Order Qty Source ASPIRIN 81MG TAB,EC ASPIRIN 81MG TAB,EC Non-VA TAKE ONE TABLET BY MOUTH Aug 09, 2022 Non-VA Document ed by: GERRY FELICIANO Document ed at: [facility] ORAL ACTIVE GERRY FELICIANO 2021 [facility] ATORVASTATI N CA 80MG TAB ATORVAST ATIN CA 80MG TAB Disconti nued TAKE ONE-HALF TABLET BY MOUTH EVERY DAY Aug 09, 2023 15 Aug 09, 2024 [id number] Aug 14, 2023 [facility] ORAL DISCONT INUED 08/09/2024 [id number] 3 GERRY FELICIANO 2022 15 [facility] ATORVASTATI N CA 80MG TAB ATORVAST ATIN CA 80MG TAB Disconti nued TAKE ONE-HALF TABLET BY MOUTH EVERY DAY Aug 09, 2022 15 Aug 10, 2023 [id number] Jul 25, 2023 [facility] ORAL DISCONT INUED 08/10/2023 [id number] GERRY FELICIANO 2021 15 [facility] METOPROLOL TARTRATE 50MG TAB METOPROL OL TARTRATE 50MG TAB TAKE ONE TABLET BY MOUTH TWICE A DAY FOR BLOOD PRESSURE AND HEART RHYTHM May 24, 2023 180 May 24, 2024 [id number] Nov 10, 2023 [facility] ORAL 05/24/2024 [id number] 4 GERRY FELICIANO 2022 180 [facility] ROSUVASTATI N CA 40MG TAB ROSUVAST ATIN CA 40MG TAB Active TAKE ONE TABLET BY MOUTH AT BEDTIME FOR CHOLESTE ROL FOR CHOLESTE ROL Aug 24, 2023 90 Aug 24, 2024 [id number] Nov 14, 2023 [facility] ORAL ACTIVE 08/24/2024 [id number] GERRY FELICIANO 2022 90 [facility] Immunizations Combined list of available immunizations from the Department of Defense and Veterans Affairs facilities. 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 Comments Source COVID-19 ([employer]), MRNA, LNP-S, PF, AMANDA-SUCROSE, 30 MCG/0.3 ML (AGES 12+ YEARS) 1 2022 NAE RIVERA LEFT DELTO ID [id number] 309 complet ed [facility] INFLUENZA, HIGH-DOSE, QUADRIVALENT 2022 197 complet ed [facility] COVID-19 ([employer]), MRNA, LNP-S, BIVALENT, PF, 30 MCG/0.3 ML DOSE 2021 300 complet ed [facility] INFLUENZA, HIGH-DOSE, QUADRIVALENT 2021 197 complet ed [facility] INFLUENZA, UNSPECIFIED FORMULATION 2021 88 complet ed [facility] COVID-19 ([employer]), MRNA, LNP-S, PF, 30 MCG/0.3 ML DOSE 3 2020 208 complet ed PFR; [id number]; 1 [facility] INFLUENZA, INJECTABLE, QUADRIVALENT, PRESERVATIVE FREE 2020 150 complet ed [facility] COVID-19 ([employer]), MRNA, LNP-S, PF, 30 MCG/0.3 ML DOSE 2 2020 208 complet ed PFR; [id number]; 1 [facility] COVID-19 ([employer]), MRNA, LNP-S, PF, 30 MCG/0.3 ML DOSE 1 2020 208 complet ed PFR; [id number]; 1 [facility] INFLUENZA, INJECTABLE, QUADRIVALENT, PRESERVATIVE FREE 2019 150 complet ed [facility] INFLUENZA, SEASONAL, INJECTABLE 2018 141 complet ed [facility] INFLUENZA, TRIVALENT, ADJUVANTED 2018 168 complet ed [facility] ZOSTER RECOMBINANT 2 2018 187 complet ed [facility] ZOSTER RECOMBINANT 1 2018 187 complet ed [facility] INFLUENZA, HIGH DOSE SEASONAL 2017 135 complet ed [facility] INFLUENZA, TRIVALENT, ADJUVANTED 2017 168 complet ed [facility] INFLUENZA, HIGH DOSE SEASONAL 2016 135 complet ed [facility] PNEUMOCOCCAL CONJUGATE PCV 13 2016 133 complet ed [facility] INFLUENZA, HIGH DOSE SEASONAL 2015 135 complet ed [facility] PNEUMOCOCCAL CONJUGATE PCV 13 2015 133 complet ed [employer] Lot [id number] Exp date 02/23 [facility] INFLUENZA, HIGH DOSE SEASONAL 2014 135 complet ed [facility] INFLUENZA, HIGH DOSE SEASONAL 2014 135 complet ed [facility] INFLUENZA, INJECTABLE, QUADRIVALENT, PRESERVATIVE FREE 2013 150 complet ed [facility] INFLUENZA, SEASONAL, INJECTABLE 2013 141 complet ed [facility] TDAP 2013 115 complet ed [employer], [id number], 09/21/16 [facility] INFLUENZA, SEASONAL, INJECTABLE 2012 141 complet ed [facility] INFLUENZA, UNSPECIFIED FORMULATION 2012 88 complet ed [facility] INFLUENZA, SEASONAL, INJECTABLE 2011 141 complet ed [facility] INFLUENZA, UNSPECIFIED FORMULATION 2011 88 complet ed [facility] INFLUENZA, SEASONAL, INJECTABLE 2009 141 complet ed [facility] INFLUENZA, UNSPECIFIED FORMULATION 2009 88 complet ed [facility] NOVEL INFLUENZA-H1N 1-09, ALL FORMULATIONS 2009 128 complet ed [employer] [facility] ZOSTER LIVE 2009 121 complet ed [employer]. [id number] [facility] ZOSTER LIVE 2009 121 complet ed [facility] INFLUENZA, UNSPECIFIED FORMULATION 2008 88 complet ed [facility] INFLUENZA, SEASONAL, INJECTABLE 2008 141 complet ed [facility] PNEUMOCOCCAL POLYSACCHARID E PPV23 2007 33 complet ed [facility] PNEUMOCOCCAL POLYSACCHARID E PPV23 2007 33 complet ed [facility] PNEUMOCOCCAL, UNSPECIFIED FORMULATION 2007 109 complet ed [facility] INFLUENZA, UNSPECIFIED FORMULATION 2007 88 complet ed [facility] INFLUENZA, SEASONAL, INJECTABLE 2007 141 complet ed [facility] INFLUENZA, SEASONAL, INJECTABLE 2006 141 complet ed [facility] INFLUENZA, SEASONAL, INJECTABLE 2005 141 complet [facility] TD (ADULT), 2 LF TETANUS TOXOID, PRESERVATIVE FREE, ADSORBED 2005 09 complet ed [facility] TD (ADULT), 2 LF TETANUS TOXOID, PRESERVATIVE FREE, ADSORBED 2005 09 complet ed [facility] INFLUENZA, SEASONAL, INJECTABLE 2004 141 complet ed [facility] TD(ADULT) UNSPECIFIED FORMULATION 2004 139 complet [facility] INFLUENZA, SEASONAL, INJECTABLE 2002 141 complet [facility] Results Combined list of recent chemistry, hematology [...] Aug 09, 2023 09:29 AM Reporting Lab: [facility] [phone] Performing Lab: [facility] [address] [facility] CBC & DIFF ERYTHROCYTE S [#/VOLUME] IN BLOOD BY AUTOMATED COUNT 4.63 10*6/u L 4.6 - 6.2 08/09 Specimen Type: BLOOD Comment: Automated Differentia l Performed Ordering Provider: NADIR FELICIANO Report Released Date/Time: Aug 09, 2023 09:29 AM Reporting Lab: [facility] [address] Performing Lab: [facility] [address] [facility] CBC & DIFF HEMOGLOBIN [MASS/VOLUM E] IN BLOOD 15.5 g/dL 13.5 - 17.9 08/09 Specimen Type: BLOOD Comment: Automated Differentia l Performed Ordering Provider: NADIR FELICIANO Report Released Date/Time: Aug 09, 2023 09:29 AM Reporting Lab: [facility] [phone] Performing Lab: [facility] [address] [facility] CBC & DIFF HEMATOCRIT [VOLUME FRACTION] OF BLOOD BY AUTOMATED COUNT 45.3 41 - 54 08/09 Specimen Type: BLOOD Comment: Automated Differentia l Performed Ordering Provider: NADIR FELICIANO Report Released Date/Time: Aug 09, 2023 09:29 AM Reporting Lab: [facility] [address] Performing Lab: [facility] [address] [facility] CBC & DIFF MCV [ENTITIC VOLUME] BY AUTOMATED COUNT 97.8 fL 80 - 100 08/09 Specimen Type: BLOOD Comment: Automated Differentia l Performed Ordering Provider: NADIR FELICIANO Report Released Date/Time: Aug 09, 2023 09:29 AM Reporting Lab: [facility] [phone] Performing Lab: [facility] [address] [facility] CBC & DIFF MCH [ENTITIC MASS] BY AUTOMATED COUNT 33.5 pg 27 - 33 08/09 H Specimen Type: BLOOD Comment: Automated Differentia l Performed Ordering Provider: NADIR FELICIANO Report Released Date/Time: Aug 09, 2023 09:29 AM Reporting Lab: [facility] [address] Performing Lab: [facility] [address] [facility] CBC & DIFF MCHC [MASS/VOLUM E] BY AUTOMATED COUNT 34.2 g/dL 32.0 - 37.5 08/09 Specimen Type: BLOOD Comment: Automated Differentia l Performed Ordering Provider: NADIR FELICIANO Report Released Date/Time: Aug 09, 2023 09:29 AM Reporting Lab: [facility] [address] Performing Lab: [facility] [address] [facility] CBC & DIFF PLATELETS [#/VOLUME] IN BLOOD BY AUTOMATED COUNT 191 10*3/u L 150 - 400 08/09 Specimen Type: BLOOD Comment: Automated Differentia l Performed Ordering Provider: NADIR FELICIANO Report Released Date/Time: Aug 09, 2023 09:29 AM Reporting Lab: [facility] [phone] Performing Lab: [facility] [address] [facility] CBC & DIFF PLATELET MEAN VOLUME [ENTITIC VOLUME] IN BLOOD BY AUTOMATED COUNT 9.4 fL 7.4 - 10.4 08/09 Specimen Type: BLOOD Comment: Automated Differentia l Performed Ordering Provider: NADIR FELICIANO Report Released Date/Time: Aug 09, 2023 09:29 AM Reporting Lab: [facility] [address] Performing Lab: [facility] [address] [facility] CBC & DIFF NEUTROPHILS /100 LEUKOCYTES IN BLOOD BY MANUAL COUNT 62.9 40.0 - 80.0 08/09 Specimen Type: BLOOD Comment: Automated Differentia l Performed Ordering Provider: NADIR FELICIANO Report Released Date/Time: Aug 09, 2023 09:29 AM Reporting Lab: [facility] [address] Performing Lab: [facility] [address] [facility] CBC & DIFF LYMPHOCYTES /100 LEUKOCYTES IN BLOOD BY MANUAL COUNT 27.6 15.0 - 45.0 08/09 Specimen Type: BLOOD Comment: Automated Differentia l Performed Ordering Provider: NADIR FELICIANO Report Released Date/Time: Aug 09, 2023 09:29 AM Reporting Lab: [facility] [address] Performing Lab: [facility] [address] [facility] CBC & DIFF MONOCYTES/1 00 LEUKOCYTES IN BLOOD BY AUTOMATED COUNT 7.4 2.0 - 12.0 08/09 Specimen Type: BLOOD Comment: Automated Differentia l Performed Ordering Provider: NADIR FELICIANO Report Released Date/Time: Aug 09, 2023 09:29 AM Reporting Lab: [facility] [address] Performing Lab: [facility] [address] [facility] CBC & DIFF EOSINOPHILS /100 LEUKOCYTES IN BLOOD BY AUTOMATED COUNT 0.7 0.0 - 6.0 08/09 Specimen Type: BLOOD Comment: Automated Differentia l Performed Ordering Provider: NADIR FELICIANO Report Released Date/Time: Aug 09, 2023 09:29 AM Reporting Lab: [facility] [address] Performing Lab: [facility] [address] [facility] CBC & DIFF BASOPHILS/1 00 LEUKOCYTES IN BLOOD BY MANUAL COUNT 0.7 0.0 - 2.0 08/09 Specimen Type: BLOOD Comment: Automated Differentia l Performed Ordering Provider: NADIR FELICIANO Report Released Date/Time: Aug 09, 2023 09:29 AM Reporting Lab: [facility] [phone] Performing Lab: [facility] [address] [facility] CBC & DIFF ERYTHROCYTE DISTRIBUTIO N WIDTH [RATIO] BY AUTOMATED COUNT 12.5 11.5 - 14.5 08/09 Specimen Type: BLOOD Comment: Automated Differentia l Performed Ordering Provider: NADIR FELICIANO Report Released Date/Time: Aug 09, 2023 09:29 AM Reporting Lab: [facility] [address] Performing Lab: [facility] [address] [facility] CBC & DIFF LYMPHOCYTES [#/VOLUME] IN BLOOD BY AUTOMATED COUNT 1.57 10*3/u L 1.0 - 4.0 08/09 Specimen Type: BLOOD Comment: Automated Differentia l Performed Ordering Provider: NADIR FELICIANO Report Released Date/Time: Aug 09, 2023 09:29 AM Reporting Lab: [facility] [address] Performing Lab: [facility] [address] [facility] CBC & DIFF MONOCYTES [#/VOLUME] IN BLOOD BY AUTOMATED COUNT 0.42 10*3/u L 0.1 - 1.0 08/09 Specimen Type: BLOOD Comment: Automated Differentia l Performed Ordering Provider: NADIR FELICIANO Report Released Date/Time: Aug 09, 2023 09:29 AM Reporting Lab: [facility] [address] Performing Lab: [facility] [address] [facility] CBC & DIFF NEUTROPHILS [#/VOLUME] IN BLOOD BY AUTOMATED COUNT 3.57 10*3/u L 2.0 - 7.7 08/09 Specimen Type: BLOOD Comment: Automated Differentia l Performed Ordering Provider: NADIR FELICIANO Report Released Date/Time: Aug 09, 2023 09:29 AM Reporting Lab: [facility] [phone] Performing Lab: [facility] [address] [facility] CBC & DIFF EOSINOPHILS [#/VOLUME] IN BLOOD BY AUTOMATED COUNT 0.04 10*3/u L 0 - 0.5 08/09 Specimen Type: BLOOD Comment: Automated Differentia l Performed Ordering Provider: NADIR FELICIANO Report Released Date/Time: Aug 09, 2023 09:29 AM Reporting Lab: [facility] [address] Performing Lab: [facility] [address] [facility] CBC & DIFF BASOPHILS [#/VOLUME] IN BLOOD BY AUTOMATED COUNT 0.04 10*3/u L 0 - 0.2 08/09 Specimen Type: BLOOD Comment: Automated Differentia l Performed Ordering Provider: NADIR FELICIANO Report Released Date/Time: Aug 09, 2023 09:29 AM Reporting Lab: [facility] [address] Performing Lab: [facility] [address] [facility] CBC & DIFF IG(META,MYE LO,PRO) 0.7 08/09 Specimen Type: BLOOD Comment: Automated Differentia l Performed Ordering Provider: NADIR FELICIANO Report Released Date/Time: Aug 09, 2023 09:29 AM Reporting Lab: [facility] [phone] Performing Lab: [facility] [address] [facility] CBC & DIFF IMMATURE GRANULOCYTE S [PRESENCE] IN BLOOD BY AUTOMATED COUNT 0.04 10*3/u L 0 - 0.1 10/31 /2023 Specimen Type: BLOOD Comment: Automated Differentia l Performed Ordering Provider: NADRI FELICIANO Report Released Date/Time: Aug 09, 2023 09:29 AM Reporting Lab: [facility] [phone] Performing Lab: [facility] [address] [facility] COMPREHEN SIVE METABOLIC PANEL+MG CREATININE [MASS/VOLUM E] IN SERUM OR PLASMA 0.8 mg/dL 0.7 - 1.2 08/09 Specimen Type: PLASMA No comment entered. Ordering Provider: NADIR FELICIANO Report Released Date/Time: Aug 09, 2023 09:29 AM Reporting Lab: [facility] [address] Performing Lab: [facility] [address] [facility] COMPREHEN SIVE METABOLIC PANEL+MG UREA NITROGEN [MASS/VOLUM E] IN SERUM OR PLASMA 16 mg/dL 8 - 26 08/09 Specimen Type: PLASMA No comment entered. Ordering Provider: NADIR FELICIANO Report Released Date/Time: Aug 09, 2023 09:29 AM Reporting Lab: [facility] [address] Performing Lab: [facility] [address] [facility] COMPREHEN SIVE METABOLIC PANEL+MG GLUCOSE [MASS/VOLUM E] IN SERUM OR PLASMA 136 mg/dL 70 - 100 08/09 H Specimen Type: PLASMA No comment entered. Ordering Provider: NADIR FELICIANO Report Released Date/Time: Aug 09, 2023 09:29 AM Reporting Lab: [facility] [phone] Performing Lab: [facility] [address] [facility] COMPREHEN SIVE METABOLIC PANEL+MG SODIUM [MOLES/VOLU ME] IN SERUM OR PLASMA 140 mmol/L 136 - 145 08/09 Specimen Type: PLASMA No comment entered. Ordering Provider: NADIR FELICIANO Report Released Date/Time: Aug 09, 2023 09:29 AM Reporting Lab: [facility] [address] Performing Lab: [facility] [address] [facility] COMPREHEN SIVE METABOLIC PANEL+MG POTASSIUM [MOLES/VOLU ME] IN SERUM OR PLASMA 4.2 mmol/L 3.5 - 5.1 08/09 Specimen Type: PLASMA No comment entered. Ordering Provider: NADIR FELICIANO Report Released Date/Time: Aug 09, 2023 09:29 AM Reporting Lab: [facility] [address] Performing Lab: [facility] [address] [facility] COMPREHEN SIVE METABOLIC PANEL+MG CHLORIDE [MOLES/VOLU ME] IN SERUM OR PLASMA 108 mmol/L 98 - 107 08/09 H Specimen Type: PLASMA No comment entered. Ordering Provider: NADIR FELICIANO Report Released Date/Time: Aug 09, 2023 09:29 AM Reporting Lab: [facility] [address] Performing Lab: [facility] [address] [facility] COMPREHEN SIVE METABOLIC PANEL+MG CARBON DIOXIDE, TOTAL [MOLES/VOLU ME] IN SERUM OR PLASMA 24 mmol/L 22 - 29 08/09 Specimen Type: PLASMA No comment entered. Ordering Provider: NADIR FELICIANO Report Released Date/Time: Aug 09, 2023 09:29 AM Reporting Lab: [facility] [address] Performing Lab: [facility] [address] [facility] COMPREHEN SIVE METABOLIC PANEL+MG CALCIUM [MASS/VOLUM E] IN SERUM OR PLASMA 9.1 mg/dL 8.4 - 10.2 08/09 Specimen Type: PLASMA No comment entered. Ordering Provider: NADIR FELICIANO Report Released Date/Time: Aug 09, 2023 09:29 AM Reporting Lab: [facility] [address] Performing Lab: [facility] [address] [facility] COMPREHEN SIVE METABOLIC PANEL+MG PROTEIN [MASS/VOLUM E] IN SERUM OR PLASMA 6.4 g/dL 6.0 - 8.3 08/09 Specimen Type: PLASMA No comment entered. Ordering Provider: NADIR FELICIANO Report Released Date/Time: Aug 09, 2023 09:29 AM Reporting Lab: [facility] [address] Performing Lab: [facility] [address] [facility] COMPREHEN SIVE METABOLIC PANEL+MG ALBUMIN [MASS/VOLUM E] IN SERUM OR PLASMA 3.9 g/dL 3.5 - 5.2 08/09 Specimen Type: PLASMA No comment entered. Ordering Provider: NADIR FELICIANO Report Released Date/Time: Aug 09, 2023 09:29 AM Reporting Lab: [facility] [address] Performing Lab: [facility] [address] [facility] COMPREHEN SIVE METABOLIC PANEL+MG BILIRUBIN.T OTAL [MASS/VOLUM E] IN SERUM OR PLASMA 0.9 mg/dL 0.2 - 1.2 08/09 Specimen Type: PLASMA No comment entered. Ordering Provider: NADIR FELICIANO Report Released Date/Time: Aug 09, 2023 09:29 AM Reporting Lab: [facility] [address] Performing Lab: [facility] [address] [facility] COMPREHEN SIVE METABOLIC PANEL+MG MAGNESIUM [MASS/VOLUM E] IN SERUM OR PLASMA 1.8 mg/dL 1.6 - 2.6 08/09 Specimen Type: PLASMA No comment entered. Ordering Provider: NADIR FELICIANO Report Released Date/Time: Aug 09, 2023 09:29 AM Reporting Lab: [facility] [address] Performing Lab: [facility] [address] [facility] COMPREHEN SIVE METABOLIC PANEL+MG ANION GAP IN SERUM OR PLASMA 8 mmol/L 5 - 15 08/09 Specimen Type: PLASMA No comment entered. Ordering Provider: NADIR FELICIANO Report Released Date/Time: Aug 09, 2023 09:29 AM Reporting Lab: [facility] [address] Performing Lab: [facility] [address] [facility] COMPREHEN SIVE METABOLIC PANEL+MG ALKALINE PHOSPHATASE [ENZYMATIC ACTIVITY/VO LUME] IN SERUM OR PLASMA 71 U/L 40 - 150 08/09 Specimen Type: PLASMA No comment entered. Ordering Provider: NADIR FELICIANO Report Released Date/Time: Aug 09, 2023 09:29 AM Reporting Lab: [facility] [address] Performing Lab: [facility] [address] [facility] COMPREHEN SIVE METABOLIC PANEL+MG ALANINE AMINOTRANSF ERASE [ENZYMATIC ACTIVITY/VO LUME] IN SERUM OR PLASMA 20 U/L <55 - 55 08/09 Specimen Type: PLASMA No comment entered. Ordering Provider: NADIR FELICIANO Report Released Date/Time: Aug 09, 2023 09:29 AM Reporting Lab: [facility] [address] Performing Lab: [facility] [address] [facility] COMPREHEN SIVE METABOLIC PANEL+MG ASPARTATE AMINOTRANSF ERASE [ENZYMATIC ACTIVITY/VO LUME] IN SERUM OR PLASMA 23 U/L <34 - 34 08/09 Specimen Type: PLASMA No comment entered. Ordering Provider: NADIR FELICIANO Report Released Date/Time: Aug 09, 2023 09:29 AM Reporting Lab: [facility] [address] Performing Lab: [facility] [address] [facility] COMPREHEN SIVE METABOLIC PANEL+MG GLOMERULAR FILTRATION RATE/1.73 SQ M.PREDICTED [VOLUME RATE/AREA] IN SERUM, PLASMA OR BLOOD BY CREATININE- BASED FORMULA (CKD-EPI 2020) 88 60 08/09 Specimen Type: PLASMA No comment entered. Ordering Provider: NADIR FELICIANO Report Released Date/Time: Aug 09, 2023 09:29 AM Reporting Lab: [facility] [address] Performing Lab: [facility] [address] [facility] CBC & DIFF LEUKOCYTES [#/VOLUME] IN BLOOD BY AUTOMATED COUNT 5.06 10*3/u L 4.0 - 11.0 08/09 Specimen Type: BLOOD Comment: Automated Differentia l Performed Ordering Provider: NADIR FELICIANO Report Released Date/Time: Aug 09, 2022 10:15 AM Reporting Lab: [facility] [address] Performing Lab: [facility] [address] [facility] CBC & DIFF ERYTHROCYTE S [#/VOLUME] IN BLOOD BY AUTOMATED COUNT 4.76 10*6/u L 4.6 - 6.2 08/09 Specimen Type: BLOOD Comment: Automated Differentia l Performed Ordering Provider: NADIR FELICIANO Report Released Date/Time: Aug 09, 2022 10:15 AM Reporting Lab: [facility] [address] Performing Lab: [facility] [address] [facility] CBC & DIFF HEMOGLOBIN [MASS/VOLUM E] IN BLOOD 15.8 g/dL 13.5 - 17.9 08/09 Specimen Type: BLOOD Comment: Automated Differentia l Performed Ordering Provider: NADIR FELICIANO Report Released Date/Time: Aug 09, 2022 10:15 AM Reporting Lab: [facility] [address] Performing Lab: [facility] [address] [facility] CBC & DIFF HEMATOCRIT [VOLUME FRACTION] OF BLOOD BY AUTOMATED COUNT 46.2 41 - 54 08/09 Specimen Type: BLOOD Comment: Automated Differentia l Performed Ordering Provider: NADIR FELICIANO Report Released Date/Time: Aug 09, 2022 10:15 AM Reporting Lab: [facility] [id number] Performing Lab: [facility] [phone] [facility] CBC & DIFF MCV [ENTITIC VOLUME] BY AUTOMATED COUNT 97.1 fL 80 - 100 08/09 Specimen Type: BLOOD Comment: Automated Differentia l Performed Ordering Provider: NADIR FELICIANO Report Released Date/Time: Aug 09, 2022 10:15 AM Reporting Lab: [facility] [phone] Performing Lab: [facility] [id number] [facility] CBC & DIFF MCH [ENTITIC MASS] BY AUTOMATED COUNT 33.2 pg 27 - 33 08/09 H Specimen Type: BLOOD Comment: Automated Differentia l Performed Ordering Provider: NADIR FELICIANO Report Released Date/Time: Aug 09, 2022 10:15 AM Reporting Lab: [facility] [id number] Performing Lab: [facility] [id number] [facility] CBC & DIFF MCHC [MASS/VOLUM E] BY AUTOMATED COUNT 34.2 g/dL 32.0 - 37.5 08/09 Specimen Type: BLOOD Comment: Automated Differentia l Performed Ordering Provider: NADIR FELICIANO Report Released Date/Time: Aug 09, 2022 10:15 AM Reporting Lab: [facility] [address] Performing Lab: [facility] [address] [facility] CBC & DIFF PLATELETS [#/VOLUME] IN BLOOD BY AUTOMATED COUNT 207 10*3/u L 150 - 400 08/09 Specimen Type: BLOOD Comment: Automated Differentia l Performed Ordering Provider: NADIR FELICIANO Report Released Date/Time: Aug 09, 2022 10:15 AM Reporting Lab: [facility] [phone] Performing Lab: [facility] [address] [facility] CBC & DIFF PLATELET MEAN VOLUME [ENTITIC VOLUME] IN BLOOD BY AUTOMATED COUNT 9.5 fL 7.4 - 10.4 08/09 Specimen Type: BLOOD Comment: Automated Differentia l Performed Ordering Provider: NADIR FELICIANO Report Released Date/Time: Aug 09, 2022 10:15 AM Reporting Lab: [facility] [phone] Performing Lab: [facility] [address] [facility] CBC & DIFF NEUTROPHILS /100 LEUKOCYTES IN BLOOD BY MANUAL COUNT 59.5 08/09 Specimen Type: BLOOD Comment: Automated Differentia l Performed Ordering Provider: NADIR FELICIANO Report Released Date/Time: Aug 09, 2022 10:15 AM Reporting Lab: [facility] [address] Performing Lab: [facility] [address] [facility] CBC & DIFF LYMPHOCYTES /100 LEUKOCYTES IN BLOOD BY MANUAL COUNT 29.6 08/09 Specimen Type: BLOOD Comment: Automated Differentia l Performed Ordering Provider: NADIR FELICIANO Report Released Date/Time: Aug 09, 2022 10:15 AM Reporting Lab: [facility] [phone] Performing Lab: [facility] [address] [facility] CBC & DIFF MONOCYTES/1 00 LEUKOCYTES IN BLOOD BY AUTOMATED COUNT 8.9 08/09 Specimen Type: BLOOD Comment: Automated Differentia l Performed Ordering Provider: NADIR FELICIANO Report Released Date/Time: Aug 09, 2022 10:15 AM Reporting Lab: [facility] [address] Performing Lab: [facility] [address] [facility] CBC & DIFF EOSINOPHILS /100 LEUKOCYTES IN BLOOD BY AUTOMATED COUNT 1.0 08/09 Specimen Type: BLOOD Comment: Automated Differentia l Performed Ordering Provider: NADIR FELICIANO Report Released Date/Time: Aug 09, 2022 10:15 AM Reporting Lab: [facility] [address] Performing Lab: [facility] [address] [facility] CBC & DIFF BASOPHILS/1 00 LEUKOCYTES IN BLOOD BY MANUAL COUNT 0.8 08/09 Specimen Type: BLOOD Comment: Automated Differentia l Performed Ordering Provider: NADIR FELICIANO Report Released Date/Time: Aug 09, 2022 10:15 AM Reporting Lab: [facility] [address] Performing Lab: [facility] [address] [facility] CBC & DIFF ERYTHROCYTE DISTRIBUTIO N WIDTH [RATIO] BY AUTOMATED COUNT 12.5 11.5 - 14.5 08/09 Specimen Type: BLOOD Comment: Automated Differentia l Performed Ordering Provider: NADIR FELICIANO Report Released Date/Time: Aug 09, 2022 10:15 AM Reporting Lab: [facility] [address] Performing Lab: [facility] [address] [facility] CBC & DIFF LYMPHOCYTES [#/VOLUME] IN BLOOD BY AUTOMATED COUNT 1.50 10*3/u L 1.0 - 4.0 08/09 Specimen Type: BLOOD Comment: Automated Differentia l Performed Ordering Provider: NADIR FELICIANO Report Released Date/Time: Aug 09, 2022 10:15 AM Reporting Lab: [facility] [address] Performing Lab: [facility] [address] [facility] CBC & DIFF MONOCYTES [#/VOLUME] IN BLOOD BY AUTOMATED COUNT 0.45 10*3/u L 0.1 - 1.0 08/09 Specimen Type: BLOOD Comment: Automated Differentia l Performed Ordering Provider: NADIR FELICIANO Report Released Date/Time: Aug 09, 2022 10:15 AM Reporting Lab: [facility] [phone] Performing Lab: [facility] [address] [facility] CBC & DIFF NEUTROPHILS [#/VOLUME] IN BLOOD BY AUTOMATED COUNT 3.01 10*3/u L 2.0 - 7.7 08/09 Specimen Type: BLOOD Comment: Automated Differentia l Performed Ordering Provider: NADIR FELICIANO Report Released Date/Time: Aug 09, 2022 10:15 AM Reporting Lab: [facility] [address] Performing Lab: [facility] [address] [facility] CBC & DIFF EOSINOPHILS [#/VOLUME] IN BLOOD BY AUTOMATED COUNT 0.05 10*3/u L 0 - 0.5 08/09 Specimen Type: BLOOD Comment: Automated Differentia l Performed Ordering Provider: NADIR FELICIANO Report Released Date/Time: Aug 09, 2022 10:15 AM Reporting Lab: [facility] [address] Performing Lab: [facility] [address] [facility] CBC & DIFF BASOPHILS [#/VOLUME] IN BLOOD BY AUTOMATED COUNT 0.04 10*3/u L 0 - 0.2 08/09 Specimen Type: BLOOD Comment: Automated Differentia l Performed Ordering Provider: NADIR FELICIANO Report Released Date/Time: Aug 09, 2022 10:15 AM Reporting Lab: [facility] [phone] Performing Lab: [facility] [address] [facility] CBC & DIFF IG(META,MYE LO,PRO) 0.2 08/09 Specimen Type: BLOOD Comment: Automated Differentia l Performed Ordering Provider: NADIR FELICIANO Report Released Date/Time: Aug 09, 2022 10:15 AM Reporting Lab: [facility] [address] Performing Lab: [facility] [address] [facility] CBC & DIFF IMMATURE GRANULOCYTE S [PRESENCE] IN BLOOD BY AUTOMATED COUNT 0.01 10*3/u L 0 - 0.1 08/09 Specimen Type: BLOOD Comment: Automated Differentia l Performed Ordering Provider: NADIR FELICIANO Report Released Date/Time: Aug 09, 2022 10:15 AM Reporting Lab: [facility] [address] Performing Lab: [facility] [address] [facility] COMPREHEN SIVE METABOLIC PANEL+MG CREATININE [MASS/VOLUM E] IN SERUM OR PLASMA 0.8 mg/dL 0.7 - 1.2 08/09 Specimen Type: PLASMA No comment entered. Ordering Provider: NADIR FELICIANO Report Released Date/Time: Aug 09, 2022 10:15 AM Reporting Lab: [facility] [address] Performing Lab: [facility] [address] [facility] COMPREHEN SIVE METABOLIC PANEL+MG UREA NITROGEN [MASS/VOLUM E] IN SERUM OR PLASMA 14 mg/dL 8 - 26 08/09 Specimen Type: PLASMA No comment entered. Ordering Provider: NADIR FELICIANO Report Released Date/Time: Aug 09, 2022 10:15 AM Reporting Lab: [facility] [phone] Performing Lab: [facility] [address] [facility] COMPREHEN SIVE METABOLIC PANEL+MG GLUCOSE [MASS/VOLUM E] IN SERUM OR PLASMA 106 mg/dL 70 - 100 08/09 H Specimen Type: PLASMA No comment entered. Ordering Provider: NADIR FELICIANO Report Released Date/Time: Aug 09, 2022 10:15 AM Reporting Lab: [facility] [address] Performing Lab: [facility] [address] [facility] COMPREHEN SIVE METABOLIC PANEL+MG SODIUM [MOLES/VOLU ME] IN SERUM OR PLASMA 139 mmol/L 136 - 145 08/09 Specimen Type: PLASMA No comment entered. Ordering Provider: NADIR FELICIANO Report Released Date/Time: Aug 09, 2022 10:15 AM Reporting Lab: [facility] [address] Performing Lab: [facility] [address] [facility] COMPREHEN SIVE METABOLIC PANEL+MG POTASSIUM [MOLES/VOLU ME] IN SERUM OR PLASMA 4.5 mmol/L 3.5 - 5.1 08/09 Specimen Type: PLASMA No comment entered. Ordering Provider: NADIR FELICIANO Report Released Date/Time: Aug 09, 2022 10:15 AM Reporting Lab: [facility] [address] Performing Lab: [facility] [address] [facility] COMPREHEN SIVE METABOLIC PANEL+MG CHLORIDE [MOLES/VOLU ME] IN SERUM OR PLASMA 106 mmol/L 98 - 107 08/09 Specimen Type: PLASMA No comment entered. Ordering Provider: NADIR FELICIANO Report Released Date/Time: Aug 09, 2022 10:15 AM Reporting Lab: [facility] [phone] Performing Lab: [facility] [address] [facility] COMPREHEN SIVE METABOLIC PANEL+MG CARBON DIOXIDE, TOTAL [MOLES/VOLU ME] IN SERUM OR PLASMA 26 mmol/L 22 - 29 08/09 Specimen Type: PLASMA No comment entered. Ordering Provider: NADIR FELICIANO Report Released Date/Time: Aug 09, 2022 10:15 AM Reporting Lab: [facility] [address] Performing Lab: [facility] [address] [facility] COMPREHEN SIVE METABOLIC PANEL+MG CALCIUM [MASS/VOLUM E] IN SERUM OR PLASMA 9.1 mg/dL 8.4 - 10.2 08/09 Specimen Type: PLASMA No comment entered. Ordering Provider: NADIR FELICIANO Report Released Date/Time: Aug 09, 2022 10:15 AM Reporting Lab: [facility] [address] Performing Lab: [facility] [address] [facility] COMPREHEN SIVE METABOLIC PANEL+MG PROTEIN [MASS/VOLUM E] IN SERUM OR PLASMA 6.5 g/dL 6.0 - 8.3 08/09 Specimen Type: PLASMA No comment entered. Ordering Provider: NADIR FELICIANO Report Released Date/Time: Aug 09, 2022 10:15 AM Reporting Lab: [facility] [address] Performing Lab: [facility] [address] [facility] COMPREHEN SIVE METABOLIC PANEL+MG ALBUMIN [MASS/VOLUM E] IN SERUM OR PLASMA 3.8 g/dL 3.5 - 5.2 08/09 Specimen Type: PLASMA No comment entered. Ordering Provider: NADIR FELICIANO Report Released Date/Time: Aug 09, 2022 10:15 AM Reporting Lab: [facility] [address] Performing Lab: [facility] [address] [facility] COMPREHEN SIVE METABOLIC PANEL+MG BILIRUBIN.T OTAL [MASS/VOLUM E] IN SERUM OR PLASMA 0.6 mg/dL 0.2 - 1.2 08/09 Specimen Type: PLASMA No comment entered. Ordering Provider: NADIR FELICIANO Report Released Date/Time: Aug 09, 2022 10:15 AM Reporting Lab: [facility] [address] Performing Lab: [facility] [address] [facility] COMPREHEN SIVE METABOLIC PANEL+MG MAGNESIUM [MASS/VOLUM E] IN SERUM OR PLASMA 1.9 mg/dL 1.6 - 2.6 08/09 Specimen Type: PLASMA No comment entered. Ordering Provider: NADIR FELICIANO Report Released Date/Time: Aug 09, 2022 10:15 AM Reporting Lab: [facility] [address] Performing Lab: [facility] [address] [facility] COMPREHEN SIVE METABOLIC PANEL+MG ANION GAP IN SERUM OR PLASMA 7 mmol/L 5 - 15 08/09 Specimen Type: PLASMA No comment entered. Ordering Provider: NADIR FELICIANO Report Released Date/Time: Aug 09, 2022 10:15 AM Reporting Lab: [facility] [address] Performing Lab: [facility] [address] [facility] COMPREHEN SIVE METABOLIC PANEL+MG ALKALINE PHOSPHATASE [ENZYMATIC ACTIVITY/VO LUME] IN SERUM OR PLASMA 60 U/L 40 - 150 08/09 Specimen Type: PLASMA No comment entered. Ordering Provider: NADIR FELICIANO Report Released Date/Time: Aug 09, 2022 10:15 AM Reporting Lab: [facility] [address] Performing Lab: [facility] [address] [facility] COMPREHEN SIVE METABOLIC PANEL+MG ALANINE AMINOTRANSF ERASE [ENZYMATIC ACTIVITY/VO LUME] IN SERUM OR PLASMA 18 U/L <55 - 55 08/09 Specimen Type: PLASMA No comment entered. Ordering Provider: NADIR FELICIANO Report Released Date/Time: Aug 09, 2022 10:15 AM Reporting Lab: [facility] [address] Performing Lab: [facility] [address] [facility] COMPREHEN SIVE METABOLIC PANEL+MG ASPARTATE AMINOTRANSF ERASE [ENZYMATIC ACTIVITY/VO LUME] IN SERUM OR PLASMA 20 U/L <34 - 34 08/09 Specimen Type: PLASMA No comment entered. Ordering Provider: NADIR FELICIANO Report Released Date/Time: Aug 09, 2022 10:15 AM Reporting Lab: [facility] [address] Performing Lab: [facility] [address] [facility] COMPREHEN SIVE METABOLIC PANEL+MG GLOMERULAR FILTRATION RATE/1.73 SQ M.PREDICTED [VOLUME RATE/AREA] IN SERUM, PLASMA OR BLOOD BY CREATININE- BASED FORMULA (CKD-EPI) 88 60 08/09 Specimen Type: PLASMA No comment entered. Ordering Provider: NADIR FELICIANO Report Released Date/Time: Aug 09, 2022 10:15 AM Reporting Lab: [facility] [address] Performing Lab: [facility] [address] [facility] HEMOGLOBI N A1C HEMOGLOBIN A1C/HEMOGLO BIN.TOTAL [...] Aug 09, 2022 10:15 AM Reporting Lab: [facility] [address] Performing Lab: [facility] [address] [facility] TSH W/REFLEX TO FREE T4 THYROTROPIN [UNITS/VOLU ME] IN SERUM OR PLASMA 0.46 u[IU]/ mL 0.35 - 4.94 08/09 Specimen Type: PLASMA No comment entered. Ordering Provider: NADIR FELICIANO Report Released Date/Time: Aug 09, 2022 10:15 AM Reporting Lab: [facility] [address] Performing Lab: [facility] [address] [facility] Vital Signs Combined list of inpatient [...] Date DC Date Status Disposition Source [facility] Outpatient Encounter [id number] 12/15 [facility] Outpatient Encounter [id number] 07/11 [facility] OFFICE O/P EST MOD 30-39 MIN [id number] Diagnos is: ICD-10- CM Z00.8 Encount er for other general examina tion
Eugene FELICIANO EBECCA L 08/09 [facility] IMG RTA DETCJ/MNTR DS STAFF [id number] Diagnos is: ICD-10- CM Z01.01 Encount er for exam of eyes and vision w abnorma l finding s
MAXIMILIANO SHAW 08/12 [facility] ADMN SARSCOV2 VACC 1 DOSE [id number] Diagnos is: ICD-10- CM Z23 Encount er for immuniz ation<b r/> SAGATAW,CI NDY 08/12 [facility] IS [facility] Outpatient Encounter [id number] Diagnos is: ICD-10- CM Z01.01 Encount er for exam of eyes and vision w abnorma l finding s
CATERINA DUKES S 08/15 [facility] Outpatient Encounter [id number] 08/22 [facility] Outpatient Encounter [id number] 08/24 [facility] Outpatient Encounter [id number] 12/01 [facility] Outpatient Encounter [id number] 05/22 [facility] Social History Combined list of available smoking, tobacco, and other social history from Department of Defense and Veterans Affairs facilities. Social History Type Response Date Comment [facility] e Tobacco smoking status NHIS VA-TOBACCO NEVER USED 08/09/2023 [facility] History of tobacco use VA-TOBACCO QUIT 1 5 YRS OR MORE 08/09/2022 [facility] History of tobacco use VA-TOBACCO FORMER USER 02/26/2021 [facility] History of tobacco use VA-TOBACCO NEVER USED 02/26/2021 [facility] History of tobacco use VA-TOBACCO FORMER USER 01/10/2019 [facility] History of tobacco use FORMER TOBACCO US ER 7Y OR GREATER 02/10/2018 [facility] History of tobacco use FORMER TOBACCO US ER 7Y OR GREATER 02/15/2017 [facility] History of tobacco use FORMER TOBACCO US ER 7Y OR GREATER 01/02/2016 [facility] History of tobacco use INPT NO TOBACCO U SE IN LAST 30 DAYS 10/20/2015 [facility] History of tobacco use FORMER TOBACCO US ER 7Y OR GREATER 02/17/2015 [facility] History of tobacco use FORMER TOBACCO US ER 7Y OR GREATER 05/15/2014 [facility] History of tobacco use LIFETIME NON-TOBA [employer] USER 09/09/2008 [facility] Plan of Care List of future care activities from [facility] facilities. Additional future care activities may be listed in the Assessment and Plan section. Date/Time Care Activity Care Activity Detail Facili ty 07/24/2024 AMBULATORY - MEDICINE AMBULATORY - MEDICI [facility] 08/16/2024 AMBULATORY - SURGERY AMBULATORY - SURGERY [facility] Advance Directives List of completed, amended, or rescinded Advance Directives on record at [facility] facilities. An actual copy of the Directive is not included. Date Advance Directive Provider Source 05/16/2019 [facility] DIRECTIVE DISCUSSION [facility] 10/20/2015 CLINICAL WARNING [facility]
--- OUTSIDE RECORDS SUMMARY | 2024-06-14 07:26 | XMS_ITS | Encounter Summary ---
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 [address] [place] [phone] [facility] Referral ID Status Reason Start Date Expiration Date V isits Requested Visits Authorized [id number] Authorized 05/29/2024 05/29/2025 10 10 * Radiation Therapy (Routine) - Authorized Specialty Diagnoses / Procedures Referred By William blanca Referred To Contact Diagnoses Primary Malignant Neoplasm Of Prostate (HCC) Procedures Prior Auth Rad Tx IL IMRT SIMPLE [place] GUIDANCE FOR LOC RAD TX [place] IMRT RADIOTHERAPY PLAN IMRT Prostate Sergio Foster M.D. [address] [place] [address] [facility] Referral ID Status Reason Start Date Expiration Date V isits Requested Visits Authorized [id number] Authorized 06/13/2024 05/29/2025 26 26 * Outpatient (Routine) - Authorized Specialty Diagnoses / Procedures Referred By William blanca Referred To Contact Radiation Oncology Sergio Foster M.D. [address] [place] [address] [facility] Region Referral ID Status Reason Start Date Expiration Date V isits Requested Visits Authorized [id number] Authorized 05/29/2024 11/28/2025 10 10 * Specialty Diagnoses / Procedures Referred By Contac t Referred To Contact Sergio Foster M.D. [address] [place] [address] [facility] Region Referral ID Status Reason Start Date Expiration Date Visits Re quested Visits Authorized Scheduling Instructions Please do not schedule if patient is receiving 10 fractions or less, unless requested by care team. * MRI/CAT/PET Scan (Routine) - Authorized Specialty Diagnoses / Procedures Referred By Contac t Referred To Contact Radiology Diagnoses Primary Malignant Neoplasm Of Prostate (HCC) Procedures MR Prostate without IV Contrast Sergio Foster M.D. [address] [place] [address] [facility] Region Referral ID Status Reason Start Date Expiration Date V isits Requested Visits Authorized [id number] Authorized 05/29/2024 05/29/2025 1 1 * Specialty Diagnoses / Procedures Referred By Contac t Referred To Contact Sergio Foster M.D. [address] [place] [address] [facility] Region Referral ID Status Reason Start Date Expiration Date Visits Re quested Visits Authorized Scheduling Instructions Please do not schedule if patient has 10 fractions or less, unless requested by care team. * Radiation Therapy (Routine) - Authorized Specialty Diagnoses / Procedures Referred By Contac t Referred To Contact Diagnoses Primary Malignant Neoplasm Of Prostate (HCC) Procedures Management Visit Sergio Foster M.D. [address] [place] [address] [facility] Region Referral ID Status Reason Start Date Expiration Date V isits Requested Visits Authorized [id number] Authorized 05/29/2024 05/29/2025 10 10 * Radiation Therapy (Routine) - Authorized Specialty Diagnoses / Procedures Referred By William blanca Referred To Contact Diagnoses Primary Malignant Neoplasm Of Prostate (HCC) Procedures Initial Rad Onc Treatment Planning CT Simulation without IV Contrast Sergio Foster M.D. [address] [place] [address] [facility] Region Referral ID Status Reason Start Date Expiration Date V isits Requested Visits Authorized [id number] Authorized 05/29/2024 05/29/2025 1 1 * Radiation Therapy (Routine) - Closed Specialty Diagnoses / Procedures Referred By William blanca Referred To Contact Diagnoses Primary Malignant Neoplasm Of Prostate (HCC) Procedures Prior Auth Rad Tx IL IMRT SIMPLE [place] GUIDANCE FOR LOC RAD TX [place] IMRT RADIOTHERAPY PLAN IMRT Prostate Sergio Foster M.D. [address] [place] [address] [facility] Referral ID Status Reason Start Date Expiration Date Visits Re quested Visits Authorized [id number] Closed 06/13/2024 05/29/2025 1 1 * Outpatient (Routine) - Authorized Specialty Diagnoses / Procedures Referred By William blanca Referred To Contact Radiation Oncology Sergio Foster M.D. [address] [place] [address] [facility] Region Referral ID Status Reason Start Date Expiration Date V isits Requested Visits Authorized [id number] Authorized 05/29/2024 11/28/2025 1 1 * Outpatient (Routine) - Closed Specialty Diagnoses / Procedures Referred By William blanca Referred To Contact Radiation Oncology Sergio Foster M.D. [address] [place] [address] [facility] Region Referral ID Status Reason Start Date Expiration Date Visits Re quested Visits Authorized [id number] Closed 05/21/2024 11/20/2025 1 1 Scheduling Instructions After visit with Dr. Gage to see if patient can proceed with radiotherapy to the prostate Reason for Visit * Outpatient (Routine) - Closed Specialty Diagnoses / Procedures Referred By William blanca Referred To Contact Radiation Oncology Sergio Foster M.D. [address] [place] [address] [facility] Referral ID Status Reason Start Date Expiration Date Visits Re quested Visits Authorized [id number] Closed 05/21/2024 11/20/2025 1 1 Encounter Details Date Type Department Care Team (Latest Contact Info) Description 05/29/2024 4:00 PM CDT - 05/29/2024 4:31 PM CDT Hospital Encounter Department of Radiation Oncology in [place], [place] [address] [place] [phone] Sergio Foster M.D. [address] [place] [phone] Primary Malignant Neoplasm Of Prostate (HCC) (Primary Dx); Trochanteric Bursitis Left Hip Social History Tobacco Use Types Packs/Day Years Used Date Smoking Tobacco: Former Cigarettes 0.3 10 1 956 - 7708 Pipe Smokeless Tobacco: Never Dental Answer Date [...] DR tablet Take 81 mg by mouth. atorvastatin (Lipitor) 80 mg tablet Take 1 tablet by mouth daily. 10/30/2013 metoprolol tartrate (Lopressor) 50 mg tablet Take 50 mg by mouth. 05/24/20 23 documented as of this encounter Progress Notes * Sergio Foster M.D. - 05/29/2024 4:00 PM CDT DIAGNOSIS 1. Primary Malignant Neoplasm Of Prostate (HCC) 2. Trochanteric Bursitis Left Hip DDC-TQRB-NL-FACE PHONE VISIT This visit was performed by telephone call today. Call initiation: 4:16 p.m. Call completion: 4:22 Total duration: 6 minutes REASON FOR ENCOUNTER Telephone call. INTERVAL HISTORY Mr. Rudy May is an 83 y.o. male with unfavorable intermediate risk, stage IIB (cT1c, cN0, cM0, PSA: 8.4, Grade Group: 2) adenocarcinoma of the prostate. He has had a prior left total hiparthroplasty and was complaining of left hip pain. He saw Dr. Gage on May 23, 2024 and was diagnosed with left trochanteric bursitis. A bone scan is pending but the patient was cleared to begin radiation therapy at any time. Oncology History Primary Malignant Neoplasm Of Prostate [...] A. Left prostate biopsy Adenocarcinoma of prostate Yesika Score 3+4=7 Involving 20-85% of the length of the cores Perineural Invasion Not Seen B. Right prostate biopsy Adenocarcinoma of prostate Yesika Score 3+4=7 Involving 40-80% of the length of the cores Perineural Invasion Not Seen PIN4 staining shows negative basal markers with positive p504s C. Lesion 1 Adenocarcinoma of prostate Cusick Score 3+3=6 Involving 75-80% of the length of two cores Perineural Invasion Not Seen 12/12 cores positive (per [facility]) 04/02/[address] 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 Management options were discussed including active surveillance, radical prostatectomy, radiation therapy, cryotherapy, and androgen deprivation therapy. The patient was interested in external beam radiation. Referral to Radiation Oncology in [place]. 05/16/2024 Critical Imaging PSA 8.3 ng/mL. Testosterone total 538 ng/dL PSMA PET/CT demonstrated no evidence for localized or metastatic prostate disease ASSESSMENT / PLAN #1 Stage IIB (cT1c, cN0, cM0, PSA: 8.4, Grade Group: 2) adenocarcinoma of the prostate #2 Memory loss/dementia #3 Left total hip arthroplasty in April of 2021, now with left trochanteric bursitis I called and spoke with the patient. We reviewed his stable PSA and negative PSMA PET/CT scan. He would like to proceed with radiotherapy alone. We discussed use of an enema 3-4 hours prior to his return visit with me to ensure that he has an empty rectum. He will also have a planning CT scan at our center and then a planning MRI at [facility] just after our visit on the same day. Verbalized satisfaction with this plan and was appreciative of the call. Signed by: Sergio Foster M.D. 05/29/24 4:25 PM CDT [facility] Radiation Therapy [facility] documented in this encounter Plan of Treatment Upcoming Encounters Date Type Department Care Team (Late st Contact Info) Description 06/19/2024 11:30 AM CDT Appointment Department of Radiation Oncology in [place], [place] [address] [place] [address] Sergio Foster M.D. [address] [place] [address] 06/19/2024 12:00 PM CDT Appointment Department of Radiation Oncology in [place], [place] [address] [place] [address] Sergio Foster M.D. [address] [place] [address] Scheduled Orders Name Type Priority Associated Diagnoses Order Schedule Prior Auth Rad Tx Radiation Oncology Routine Primary Malignant Neoplasm Of Prostate (HCC) Ordered: 05/29/2024 Management Visit Radiation Oncology Routine Primary Malignant Neoplasm Of Prostate (HCC) 10 Occurrences starting 05/29/2024 until 08/29/2025 MR Prostate without IV Contrast Imaging RAD - Routine (most inpatients and all outpatients) Primary Malignant Neoplasm Of Prostate (HCC) Expected: 06/02/2024 (Approximate), Expires: 05/29/2025 Prior Auth Rad Tx Radiation Oncology Routine Primary Malignant Neoplasm Of Prostate (HCC) Ordered: 05/29/2024 Management Visit Radiation Oncology Routine Primary Malignant Neoplasm Of Prostate (HCC) 10 Occurrences starting 05/29/2024 until 05/29/2025 Scheduled Referrals Name Type Priority Associated Diagnoses Order Schedule Radiation Oncology office visit (clinic) Outpatient Referral Routine Once for 1 Occurrences starting 05/29/2024 until 05/29/2024 Radiation Oncology office visit (clinic) Outpatient Referral Routine Expected: (Approximate), Expires: 05/29/2025 Radiation Oncology - Nurse education visit (clinic) Outpatient Referral Routine Primary Malignant Neoplasm Of Prostate (HCC) Expected: 05/29/2024, Expires: 08/29/2025 Radiation Oncology - Nurse education visit (clinic) Outpatient Referral Routine Primary Malignant Neoplasm Of Prostate (HCC) Expected: 05/29/2024 (Approximate), Expires: 05/29/2025 Radiation Oncology nurse visit (clinic) Outpatient Referral Routine 10 Occurrenc es starting 05/29/2024 until 05/29/2025 documented as of this encounter Visit Diagnoses Diagnosis Primary Malignant Neoplasm Of Prostate (HCC)- Primary Trochanteric Bursitis Left Hip documented in this encounter
--- OUTSIDE RECORDS SUMMARY | 2024-06-14 07:26 | XMS_ITS | Data Portability ---
Author Organization [facility] Address [address] [place] [address] Care Team Providers Care Car Pilot Name Role Phone DIONNE COTTO Referring Provider [phone] Assessment No assessment recorded. Plan of Treatment Reminders Order Date Submit Date Provider Last Modified By Organization Details Last Modified Time Details Appointments None recorded. Lab None recorded. Referral radiation oncologist referral 2023 024 YINA Foster MD, [address] [place], [address], 4 08:17:34 Procedures None recorded. Surgeries None recorded. Imaging MRI, prostate, w/wo contrast - Please call pt to schedule, thanks 2023 024 [facility], [address] [place], [address], 4 11:53:24 Medication Orders ceftriaxon e 1 gram solution for injection 2023 024 [facility] [address] [employer], [address], [address], 4 17:25:00 Patient TargetsNo targets recorded. Patient InstructionsNo instructions recorded. Reason for Referral Referring Physician: Tonio Bhatt, Urology, Encounter Date: 04/02/2024 Results Created Date Observation Date Name Description Value Unit Range Abnormal Flag Note LastModifiedBy Organization Detail LastModifiedTime 01/27/20 24 01/24/2024 MRI, prost ate, w/wo contr ast No observ ation record ed. [facility] [address] [place], [address], 01/30/2024 17:11:38 Result Notes None recorded. Problems Name Problem SNOMED Code Status Onset Date Resolution Date Notes Provider Name and Address Organization Details Recorded Time Prostate specific antigen above reference range 963816426 Active 024 Tonio Bhatt MD [address] [place] [address],[address], [phone], [facility] 4 12:31:19 Malignant tumor of prostate 137111275 Active 024 Tonio Bhatt MD [address] [place] [address],[address], [phone], [facility] 4 17:58:30 Problem Notes None recorded. Procedures Surgical History Date Name Laterality Status Provider Name and Address Organization Details Recorded Time 4 COMPLEX VISIT completed Tonio Bhatt MD [address] [place] [address],[address], [place], [address], [facility] 04/02/2024 17:58:21 4 Prostate Biopsy Procedure completed Tonio Bhatt MD [address] [place] [address],[address], [place], [address], [facility] 03/08/2024 11:46:16 4 Rocephin[facility]ri axone [facility]/08/2024 11:07:02 4 URONAV completed Tonio Bhatt MD [address] [place] [address],[address], [place], [address], [facility] 03/08/2024 11:46:23 4 [facility] 17:25:27 Imaging Results Imaging Date Name Status LastModified by Organiz ation Details LastModified Time 01/24/2024 MRI, prostate, w/wo contrast completed [facility] [address] [facility] [place], [address], 01/30/2024 17:11:38 Procedure Notes None recorded. Medical [...] Address Organization Details Last Updated DateTime 01/04/2024 75706.12 g 22.9 kg/m2 167.64 cm Lisa Rodrigues [facility] 01/04/2024 12:13:58 Date Recorded Body height Body mass index (BMI) Body weight Provider Name and Address Organization Details Last Updated DateTime 03/08/2024 167.64 cm 22.9 kg/m2 89817.12 g Sofia Navarro [facility] 03/08/2024 11:06:42 Date Recorded Body height Body mass index (BMI) Body weight Provider Name and Address Organization Details Last Updated DateTime 04/02/2024 167.64 cm 22.9 kg/m2 30544.12 g Willam Brown [facility] 04/02/2024 17:24:55 Social History Question Answer Notes LastModified by Organizat ion Details LastModified Time Tobacco Smoking Status Never [facility]oker [facility] 01/04/2024 11:51:16 What Is Your Level Of [...] Disease N Depression N GERD/Acid Reflux N Diabetes N Sexually Transmitted Infection N Bleeding Disorder N Cancer N High Cholesterol N Heart Disease N Immunizations Vaccine Type Date Status Provider Name and Address Organization Details Recorded Time Influenza, adjuvanted, trivalent, PF 08/06/2019 [facility] 01/04/2024 11:50:53 Influenza, adjuvanted, trivalent, PF 09/26/2018 [facility] 01/04/2024 11:50:53 Influenza, high-dose, quadrivalent, PF 07/06/2022 [facility] 01/04/2024 11:50:53 Influenza, high-dose, quadrivalent, PF 07/11/2023 [facility] 01/04/2024 11:50:53 COVID-19, mRNA, LNP-S, bivalent, PF, 30 mcg/0.3 mL dose 07/06/2022 [facility] 01/04/2024 11:50:53 COVID-19, mRNA, LNP-S, PF, lashawn-sucrose, 30 mcg/0.3 mL 08/12/2023 [facility] 01/04/2024 11:50:53 pneumococcal polysaccharide PPV23 09/09/2008 completed Dezera Sieracki null, [facility] 01/04/2024 11:50:53 pneumococcal polysaccharide PPV23 09/26/2008 completed Dezera Sieracki null, [facility] 01/04/2024 11:50:53 Pneumococcal conjugate PCV 13 01/08/2017 completed Dezera Sieracki null, [facility] 01/04/2024 11:50:53 zoster live 10/10/2009 completed Dezera Sieracki null, [facility] 01/04/2024 11:50:53 Influenza, high-dose, trivalent, PF 09/03/2015 completed Dezera Sieracki null, [facility] 01/04/2024 11:50:53 Influenza, split virus, trivalent, preservative 07/04/2009 completed Dezera Sieracki null, [facility] 01/04/2024 11:50:53 Influenza, split virus, trivalent, preservative 08/20/2013 completed Dezera Sieracki null, [facility] 01/04/2024 11:50:53 Influenza, split virus, trivalent, preservative 08/22/2008 completed Dezera Sieracki null, [facility] 01/04/2024 11:50:53 Influenza, split virus, trivalent, preservative 09/03/2003 completed Dezera Sieracki null, [facility] 01/04/2024 11:50:53 Influenza, split virus, trivalent, preservative 09/10/2005 completed Dezera Sieracki null, [facility] 01/04/2024 11:50:53 Influenza, split virus, trivalent, preservative 09/22/2012 completed Dezera Sieracki null, [facility] 01/04/2024 11:50:53 Influenza, split virus, trivalent, preservative 09/26/2006 completed Dezera Sieracki null, [facility] 01/04/2024 11:50:53 Influenza, split virus, trivalent, preservative 09/26/2007 completed Dezera Sieracki null, [facility] 01/04/2024 11:50:53 Influenza, split virus, trivalent, preservative 09/28/2010 completed Willam Tapiai jared, [facility] 01/04/2024 11:50:53 Td (adult), 2 Lf tetanus toxoid, preservative free, adsorbed 09/09/2006 completed Cuauhtemoczera Sieracki jared, [facility] 01/04/2024 11:50:53 Td (adult), 2 Lf tetanus toxoid, preservative free, adsorbed 09/26/2006 completed Willam Morilloracki null, [facility] 01/04/2024 11:50:53 Influenza, split virus, quadrivalent, PF 08/06/2014 completed Willam coleman, [facility] 01/04/2024 11:50:53 Past Encounters Encounter ID Performer Location Encounter Start Date Encounter Closed Date Diagnosis/Indication Diagnosis SNOMED-CT Code Diagnosis ICD10 Code [id number] Tonio Bhatt MD [address] [place] [address] 01/04/2024 11:28:33 01/05/2024 12:49:03 Prostate specific antigen above reference range 713309161 R97.[address] [id number] [facility] [address] [address] 03/08/2024 10:49:12 03/15/2024 11:29:55 Prostate specific antigen above reference range 438653872 R97.20 [id number] Tonio Bhatt MD [address] [place] [address] 04/02/2024 16:33:36 04/11/2024 16:10:40 Malignant tumor of prostate 925936528 C61 Health Concerns Section Related Observation LastModified by Organization Detai ls LastModified Time None Recorded Concern Status LastModified by Organization Details LastModified Time None Recorded Advance Directives Directive None Recorded Payers Encounter Date Sequence Insurance Name Policy Number Policy Dia Covered Member ID Dia Member ID Guarantor Name 01/04/2024 1 [employer] (MEDICARE REPLACEMENT/A DVANTAGE - PPO) Rudy Garsia Klepperich [id number] Rudy Garsia Klepperich 01/04/2024 2 [facility] Rudy Garsia Klepperich [id number] Rudy Garsia Klepperich 03/08/2024 1 [employer] (MEDICARE REPLACEMENT/A DVANTAGE - PPO) Rudy Garsia Klepperich [id number] Rudy Garsia Klepperich 03/08/2024 2 [facility] Rudy Garsia Klepperich [id number] Rudy Garsia Klepperich 04/02/2024 1 [employer] (MEDICARE REPLACEMENT/A DVANTAGE - PPO) Rudy Garsia Klepperich [id number] Rudy Garsia Klepperich 04/02/2024 2 [facility] Boomi [facility] Rudy Garsia Klepperich [id number] Rudy Garsia Kleberhaneerich Notes Date Note Type Note Provider Name [...] Cotto dated 08/29/2023. His last PSA at [facility] was 8.37 on 11/29/2023, previously 6.43 in August. No family history of prostate cancer. No bothersome urinary symptoms. He has a history of a left total hip arthroplasty but no prior abdominal surgery. Tonio Bhatt MD [address] [place] [address],[address], [place], [address], [facility] 01/04/2024 12:49:13 03/08/2024 text/html HPI Notes: : Very pleasant 83-year-old gentleman referred for elevated PSA. It is unclear to me why he is undergoing PSA screening at age 83. He reportedly had a PSA of 5.15 in 2021. I reviewed the most recent clinic note from Dr. Cotto dated 08/29/2023. His last PSA at [facility] was 8.37 on 11/29/2023, previously 6.43 in [...] biopsy with [facility]. Tonio Bhatt MD [address] [facility],[address], [place], [address], [facility] 03/08/2024 11:46:54 04/02/2024 text/html HPI Notes: : Very pleasant 83-year-old gentleman referred for elevated PSA. It is unclear to me why he is undergoing PSA screening at age 83. He reportedly had a PSA of 5.15 in 2021. I reviewed the most recent clinic note from Dr. Cotto dated 08/29/2023. His last PSA at [facility] was 8.37 on 11/29/2023, previously 6.43 in [...] [facility] 04/02/24: Prostate biopsy on 03/08/2024 shows Walworth grade 3+4 = 7 prostate cancer in up to 85% of the biopsy cores bilaterally and Yesika grade 3+3 = 6 prostate cancer in 80% of 2 cores from the MRI lesion. He is here along with his for prostate cancer counseling. Tonio Bhatt MD [address] [facility],[address], [place], [address], [facility] 04/02/2024 18:01:14
--- OUTSIDE RECORDS SUMMARY | 2024-06-14 07:26 | XMS_ITS | Encounter Summary ---
Author Organization [facility] Address [address] [place] [address] Care Team Providers Care Car Worker Name Role Phone Unavailable Primary Care Provider Unavailabl e Encounter Details Date Type Department Care Team (Latest Contact Info) Description 05/16/2024 10:14 AM CDT - 05/16/2024 11:14 AM CDT Hospital Encounter Department of Laboratory Medicine in [place], [place] [address] [place] [phone] Jesika Bragg P.A.-C., M.S. [address] [place] [phone] Primary Malignant Neoplasm Of Prostate (HCC) Discharge Disposition: Home or Self Care Social History Tobacco Use Types Packs/Day Years Used Date Smoking Tobacco: Former Cigarettes 0.3 10 1 833 - 7146 Pipe Smokeless Tobacco: Never Dental Answer Date [...] as of this encounter Plan of Treatment Upcoming Encounters Date Type Department Care Team (Late st Contact Info) Description 06/19/2024 11:30 AM CDT Appointment Department of Radiation Oncology in [address] [phone] Sergio Foster M.D. [address] [place] [phone] 06/19/2024 12:00 PM CDT Appointment Department of Radiation Oncology in [place], [place] [address] [place] [phone] Sergio Foster M.D. [address] [place] [phone] documented as of this encounter Procedures Procedure [...] - 950 ng/dL 05/20/2024 3:07 PM CDT [facility] Comment: ----ADDITIONAL INFORMATION---- Testing performed by Liquid Chromatography-Tandem Mass Spectrometry (LC-MS/MS). This test was developed and its performance characteristics determined by [facility] in a manner consistent with CLIA requirements. This test has not been cleared or approved by the U.S. Food and Drug Administration. Blood (Blood, Venous) 05/16/2024 10:34 AM CDT 05/17/2024 8:56 AM CDT Jesika Bragg P.A.-C., M.S. LAB BLOOD NON ADD-ON [facility] [address] [place] [address] [facility] [address] [place] [address] [place] [address] * (ABNORMAL) PSA (Prostate-Specific Antigen), Diagnostic (05/16/2024 10:34 AM CDT) Prostate-Specific Ag 8.3(H) <=7.2 ng/mL 05/16/2024 11:36 AM CDT [facility] Comment: ----ADDITIONAL INFORMATION---- The testing method is an electrochemiluminescence assay manufactured by [employer] and performed on the Modular or Twitpay system. Values obtained with different assay methods or kits may be different and cannot be used interchangeably. Test results cannot be interpreted as absolute evidence for the presence or absence of malignant disease. Blood (Blood, Venous) 05/16/2024 10:34 AM CDT 05/16/2024 11:02 AM CDT Jesika Bragg P.A.-C., M.S. LAB BLOOD ADD- ON [facility] [address] [place] [address], [facility] NPRG [facility] [address] [place] [address] documented in this encounter Visit Diagnoses Diagnosis Primary Malignant Neoplasm Of Prostate (HCC) documented in this encounter
--- OUTSIDE RECORDS SUMMARY | 2024-06-14 07:26 | XMS_ITS | Encounter Summary ---
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 200 [place] [address] [facility] Region Referral ID Status Reason Start Date Expiration Date Visits Re quested Visits Authorized [id number] Closed 05/21/2024 11/20/2025 1 1 Scheduling Instructions After visit with Dr. Gage to see if patient can proceed with radiotherapy to the prostate * Outpatient (Routine) - Authorized Specialty Diagnoses / Procedures Referred By Contac t Referred To Contact Orthopedic Surgery Diagnoses Pain Hip Left Sergio Foster M.D. 200 [place] [address] Jean Marie Gage M.D. [address] [place] [phone] Referral ID Status Reason Start Date Expiration Date V isits Requested Visits Authorized [id number] Authorized 05/21/2024 11/20/2025 1 1 * Outpatient (Routine) - Closed Specialty Diagnoses / Procedures Referred By Contac t Referred To Contact Radiation Oncology Jesika Bragg P.A.-C., M.S. [address] [place] [phone] Sergio Foster M.D. [address] [place] [phone] Referral ID Status Reason Start Date Expiration Date Visits Re quested Visits Authorized [id number] Closed 05/09/2024 11/08/2025 1 1 Scheduling Instructions PSA, testosterone, and PSMA PET-CT prior at [facility] Reason for Visit * Outpatient (Routine) - Closed Specialty Diagnoses / Procedures Referred By William t Referred To Contact Radiation Oncology Jesika Bragg P.A.-C., M.SAdriano [address] [place] [phone] Sergio Foster M.D. [address] [place] [phone] Referral ID Status Reason Start Date Expiration Date Visits Re quested Visits Authorized [id number] Closed 05/09/2024 11/08/2025 1 1 Encounter Details Date Type Department Care Team (Latest Contact Info) Description 05/21/2024 9:12 AM CDT - 05/21/2024 2:11 PM CDT Hospital Encounter Department of Radiation Oncology in [place], [place] [address] [place] [phone] Sergio Foster M.D. [address] [place] [phone] Primary Malignant Neoplasm Of Prostate (HCC) (Primary Dx); Pain Hip Left Social History Tobacco Use Types Packs/Day Years Used Date Smoking Tobacco: Former Cigarettes 0.3 10 1 956 - 5165 Pipe Smokeless Tobacco: Never Dental Answer Date [...] as of this encounter Progress Notes * Mahsa Mcdaniels APRN, C.N.P., D.N.P. - 05/21/2024 9:30 AM CDT SUBJECTIVE REASON FOR CONSULT 1. Primary Malignant Neoplasm Of Prostate (HCC) 2. Pain Hip Left SUPERVISED BY: Sergio Foster M.D. ([id number]) HISTORY OF PRESENT ILLNESS Mr. Rudy May is a 83 y.o. male with unfavorable intermediate risk prostate cancer. He returns today after completing a PSMA PET-CT scan to evaluate the extent of his disease. His oncologic history is as follows: [...] A. Left prostate biopsy Adenocarcinoma of prostate [place] Score 3+4=7 Involving 20-85% of the length of the cores Perineural Invasion Not Seen B. Right prostate biopsy Adenocarcinoma of prostate [place] Score 3+4=7 Involving 40-80% of the length of the cores Perineural Invasion Not Seen PIN4 staining shows negative basal markers with positive p504s C. Lesion 1 Adenocarcinoma of prostate [place] Score 3+3=6 Involving 75-80% of the length of two cores Perineural Invasion Not Seen 12/12 cores positive (per [facility]) 04/02/[address] 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 Management options were discussed including active surveillance, radical prostatectomy, radiation therapy, cryotherapy, and androgen deprivation therapy. The patient was interested in external beam radiation. Referral to Radiation Oncology in [place]. 05/16/2024 Critical Imaging PSA 8.3 ng/mL. Testosterone total 538 ng/dL PSMA PET/CT demonstrated no evidence for localized or metastatic prostate disease INTERVAL HISTORY The patient was seen and examined today with Dr. Foster. The patient reports doing well overall. He denies any significant changes since our last visit. He denies urinary leakage, hematuria, or dysuria. He denies constipation. He has been experiencing fluctuating left hip pain that has been more exacerbated recently due to activity outside. His ECOG performance status is 1. Patient completed questionnaires: AUA 05/09/2024: 6 (3, 1, 0, 1, 0, 0, 1) 05/21/2024: 3 (1, 0, 0, 1, 0, 0, 1) IIEF-5 05/09/2024: 7 (2, 2, 1, 1, 1) - severe ED REVIEW OF SYSTEMS Review of systems was negative except as documented above. OBJECTIVE BP 141/58 (BP Location: Right arm, Patient Position: Sitting, Cuff Size: Regular) Pulse 62 Temp36.6 ??C (Temporal) Wt 64.9 kg PHYSICAL EXAM General: Patient is alert and oriented in no apparent distress. 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 We reviewed his most recent PSA results of 8.3 ng/mL and testosterone total of 538 ng/dL and discussed what this means in relation to his prostate cancer. We also reviewed the PSMA PET/CT which demonstrated no convincing evidence of localized or metastatic disease. We reviewed the risks, benefits, and alternatives of radiotherapy in this setting. We discussed external beam radiation therapy options in 20 or 26 fractions. We discussed the option of stereotactic body radiation therapy in 5 fractions. We discussed fiducial markers and rectal spacer placement, which would be required with SBRT treatment. The patient and his would like to proceed with treatment in 20/26 fractions. In addition, because of his unfavorable intermediate risk, we discussed our recommendations of possibly pursuing androgen deprivation therapy with radiation treatment. He does have a history of dementia and we are concerned how this would be affected if he were to go on androgen deprivation therapy. We discussed at length the options of forgoing ADT, starting with Firmagon, or starting with a short course of bicalutamide and evaluate the effects before pursuing a longer course of ADT. The patient and his have decided not to pursue androgen deprivation therapy as they do not want to make his memory issues any worse. I discussed the logistics, as well as, the acute and chronic side effects of radiotherapy. The acute side effects may include, but are not limited to, urinary frequency and urgency, dysuria, bowel frequency and urgency, diarrhea, gaseous bloating and discomfort, erectile dysfunction, radiation dermatitis, loss of pubic hair, and fatigue. Long-term side effects may include, but are not limited to,mild increase in urinary and bowel frequency, as well as, more rare side effects including radiation cystitis, radiation proctitis, urethral stenosis requiring dilatation, fistula formation, increasing arthritis of the hips, small bowel obstruction, and a very small risk of secondary malignancy. I discussed the full bladder, empty rectum protocol with him. The patient was provided with a written summary of recommendations. We would like the patient to be evaluated by Orthopedics in case he needs a left hip replacement prior to proceeding with radiation treatment. We have placed a referral back to Dr. Gage at [facility], who he has previously seen before. We will contact the patient once that visit has beencompleted to learn more about how he will proceed. The patient would like to proceed with radiation treatment when appropriate. After he has been evaluated by Dr. Gage we will determine when to bring him back for CT simulation and planning MRI at [facility]. Patient seen in collaboration with Dr. Foster, please see his attestation for additional information. The patient was provided with our contact information. He was asked to contact us with questions or concerns. He verbally expressed his understanding of the plan. EDUCATION Ready to learn, no apparent learning barriers were identified; learning preferences include listening. Explained diagnosis and treatment plan; patient expressed understanding of the content. CONSENT Discussed the risks, benefits, alternatives, and the necessity of other members of the healthcare team participating in the procedure. All questions answered and consent given. I personally spent 30 minutes in care of the patient today. Time includes both non face to face andface to face patient care. Signed by: Mahsa Mcdaniels APRN, C.NSaman, D.N.P. 05/21/2024 11:03 AM CDT [facility] [address] [place] [address] Associated attestation - Sergio Foster M.D. - 05/21/2024 2:10 PM CDT I saw and evaluated the patient and participated in the alanis portions of the service. I reviewed thedocumentation of Mahsa Mcdaniels C.N.P. and agree with the findings and plan. Mr. Rudy May is an 83 y.o. male with unfavorable intermediate risk, stage IIB (cT1c, cN0, cM0, PSA: 8.4, Grade Group: 2) adenocarcinoma of the prostate. We saw him in consultation on May 09, 2024 and ordered a PSMA PET/CT scan. This was performed on May 16, 2024 and revealed no areas of PSMA uptake. His PSA was 8.3 ng/mL. Testosterone was 538 ng/dL. His urinary function is stable. He does report waxing and waning left hip pain. He had a left hip arthroplasty done at the [facility] for 5 years ago. He has been more active this summer and notes that with increasing activity his pain gets worse. Was quite severe yesterday. The patient appears well on exam. He is here with his Kesha. 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 We again discussed treatment options including external beam radiotherapy to a dose of 60 Gy in 20 fractions or 70.2 Gy in 26 fractions utilizing intensity modulated radiotherapy. We also discussed stereotactic body radiotherapy. He does haveunfavorable intermediate risk disease, but I am concerned that his dementia may worsen with even a short course of androgen deprivation therapy. We reviewed the pros and cons and agreed to omit androgen deprivation therapy. The patient's left hip pain is bothersome to him. I explained that he should have an evaluation by orthopedic surgery prior to initiation of radiotherapy. He would like to see Dr. Jean Marie Gage. I ordered left hip x-rays at [facility] and a consultation with Dr. Gage. We will call the patient in 2 weeks to check on his progress. After this discussion, the patient stated that he would like to proceed with treatment. He will return for CT simulation and planning MRI scan after he has been cleared by orthopedic surgery. We discussed our bladder filling and rectal emptying protocol with simulation and treatment. He and his verbalized satisfaction with this plan. I have spent 20 minutes caring for this patient including mdhq-up-kdoc and zzf-qtea-gw-face time. Signed by: Sergio Foster M.D. 05/21/24 2:10 PM CDT [facility] [place] documented in this encounter Miscellaneous Notes * Addendum Note - Irina Martines CAdrianoNAdrianoAAdriano - 05/21/2024 9:30 AM CDTEncounter addended by: Irina Martines C.N.AAdriano on: 05/21/2024 2:49 PM Actions taken: Letter saved documented in this encounter Plan of Treatment Upcoming Encounters Date Type Department Care Team (Late st Contact Info) Description 06/19/2024 11:30 AM CDT Appointment Department of Radiation Oncology in [place], [place] [address] [place] [phone] Sergio Foster M.D. [address] [place] [phone] 06/19/2024 12:00 PM CDT Appointment Department of Radiation Oncology in [place], [place] [address] [place] [address] Sergio Foster M.D. [address] [place] [address] Scheduled Referrals Name Type Priority Associated Diagnoses Order Schedule Radiation Oncology office visit (clinic) Outpatient Referral Routine Once for 1 Occurrences starting 05/21/2024 until 05/21/2024 External referral physician (non-[facility]) Outpatient Referral Routine Pain Hip Left Ordered: 05/21/2024 Radiation Oncology office visit (clinic) Outpatient Referral Routine Expected: (Approximate), Expires: 05/21/2025 documented as of this encounter Visit Diagnoses Diagnosis Primary Malignant Neoplasm Of Prostate (HCC)- Primary Pain Hip Left documented in this encounter
--- OUTSIDE RECORDS SUMMARY | 2024-06-14 07:26 | XMS_ITS | Encounter Summary ---
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 [address] [place] [phone] Sergio Foster M.D. [address] [place] [phone] Referral ID Status Reason Start Date Expiration Date Visits Re quested Visits Authorized [id number] Closed 05/09/2024 11/08/2025 1 1 Scheduling Instructions PSA, testosterone, and PSMA PET-CT prior at [facility] * MRI/CAT/PET Scan (Routine) - Closed Specialty Diagnoses / Procedures Referred By William t Referred To Contact Diagnoses Primary Malignant Neoplasm Of Prostate (HCC) Procedures PET CT Skull to Thigh PSMA Jesika Bragg P.A.-C., M.S. [address] [place] [phone] [facility] Region Referral ID Status Reason Start Date Expiration Date Visits Re quested Visits Authorized [id number] Closed 05/09/2024 05/09/2025 1 1 Reason for Visit * Appointment Request (Routine) - Closed Specialty Diagnoses / Procedures Referred By William blanca Referred To Contact Radiation Oncology Diagnoses Primary Malignant Neoplasm Of Prostate (HCC) Tonio Bhatt M.D. [address] [phone] Referral ID Status Reason Start Date Expiration Date Visits Re quested Visits Authorized [id number] Closed 04/26/2024 04/26/2025 1 1 Encounter Details Date Type Department Care Team (Latest Contact Info) Description 05/09/2024 10:05 AM CDT - 05/18/2024 2:17 PM CDT Hospital Encounter Department of Radiation Oncology in [place], [place] [address] [place] [phone] Sergio Foster M.D. [address] [place] [address] Primary Malignant Neoplasm Of Prostate (HCC) (Primary Dx) Social History Tobacco Use Types Packs/Day Years Used Date Smoking Tobacco: Former Cigarettes 0.3 10 1 717 - 8798 Pipe Smokeless Tobacco: Never Tobacco Cessation:Counseling Given: [...] Prostate (HCC) SUPERVISED BY: Sergio Foster M.D. ([id number]) HISTORY OF PRESENT ILLNESS Mr. Rudy May [...] B. Right prostate biopsy Adenocarcinoma of prostate [place] Score 3+4=7 Involving 40-80% of the length of the cores Perineural Invasion Not Seen PIN4 staining shows negative basal markers with positive p504s C. Lesion 1 Adenocarcinoma of prostate [place] Score 3+3=6 Involving 75-80% of the length of two cores Perineural Invasion Not Seen 12/12 cores positive (per [facility]) 04/02/[address] 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 Management options were discussed including active surveillance, radical prostatectomy, radiation therapy, cryotherapy, and androgen deprivation therapy. The patient was interested in external beam radiation. Referral to Radiation Oncology in [place]. INTERVAL HISTORY: The patient was seen and [...] 9 grandchildren, and 2 great-grandchildren.They live in [place], [place] at the [facility] and he has an airplane. 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 He is a . OBJECTIVE BP 125/59 [...] the lab work and imaging done at [facility] and orders were placed. We also ordered [...] M.D. and Dr. Cece Baig at the [facility] in [place] I personally spent 55 minutes in care of the patient today. Time includes both non face to face andface to face patient care. Signed by: Jesika Bragg P.A.-C., M.S. 05/09/2024 12:49 PM CDT [facility] [address] [place] [address] Associated attestation - Sergio Foster M.D. - [...] left and the right as well as Yesika 3+ 3 disease in the MRI guided [...] PSA, testosterone level,and PSMA PET/CT scan at [facility] discuss the results and a finalize his plan of care. My thanks to Drs. Bhatt, Jovanni, and John for the opportunity to participate in this patient's care. I have spent 40 minutes caring for this patient including ddjj-kd-vdfd and ldl-ilmw-oz-face time Signed by: Sergio Foster M.D. 05/18/24 2:13 PM CDT [facility] [place] documented in this encounter Miscellaneous Notes * Addendum Note - Irina Martines C.NAdrianoA. - 05/09/2024 10:30 AM CDTEncounter addended by: Irina Martines C.NPretty on: 05/21/2024 7:09 AM Actions taken: Letter saved documented in this encounter Plan of Treatment Upcoming Encounters Date Type Department Care Team (Late st Contact Info) Description 06/19/2024 11:30 AM CDT Appointment Department of Radiation Oncology in [place], [place] [address] [place] [address] Sergio Foster M.D. [address] [place] [address] 06/19/2024 12:00 PM CDT Appointment Department of Radiation Oncology in [place], [place] [address] [place] [phone] Sergio Foster M.D. [address] [place] [phone] Scheduled Referrals Name Type Priority Associated Diagnoses Orde r Schedule Radiation Oncology office visit (clinic) Outpatient Referral Routine Expected: 05/23/2024, Expires: 08/09/2025 documented as of this encounter Results * PET CT Skull to Thigh PSMA (05/16/2024 12:58 PM CDT) Anatomical Region Laterality Modality Body, Nuclear Medicine PET R [facility], PET AR LOS, Nuclear Medicine PET FLA LOS, Nuclear [...] metastatic prostate disease. Jesika Bragg P.A.-C., M.S. [facility] [place]EDU RES * Testosterone, Total by Mass Spectrometry, Serum (05/16/2024 10:34 AM CDT) [facility] Testosterone, Total by Mass Spectrometry, Serum 538 240 - 950 ng/dL 05/20/2024 3:07 PM CDT [facility] Comment: ----ADDITIONAL INFORMATION---- Testing performed by Liquid Chromatography-Tandem Mass Spectrometry (LC-MS/MS). This test was developed and its performance characteristics determined by [facility] in a manner consistent with CLIA requirements. This test has not been cleared or approved by the U.S. Food and Drug Administration. Blood (Blood, Venous) 05/16/2024 10:34 AM CDT 05/17/2024 8:56 AM CDT Jesika Bragg P.A.-C. MAdrianoSAdriano LAB BLOOD NON ADD-ON [facility] [address] [place] [address] [facility] [address] [place] [address] [place] [address] * (ABNORMAL) PSA (Prostate-Specific Antigen), Diagnostic (05/16/2024 [...] CDT 05/16/2024 11:02 AM CDT Jesika Bragg P.A.-C. M.S. LAB BLOOD ADD- ON [facility] [address] [place] [address], [facility] NPRG [facility] [address] [place] [address] documented in this encounter Visit Diagnoses Diagnosis Primary Malignant Neoplasm Of Prostate (HCC)- Primary Primary Malignant Neoplasm Of Prostate (HCC) documented in this encounter
--- OUTSIDE RECORDS SUMMARY | 2024-06-14 07:26 | XMS_ITS | Encounter Summary ---
Author Organization [facility] Address [address] [place] [address] Care Team Providers Care Program Director Scouting Name Role Phone Unavailable Primary Care Provider Unavailabl e Reason for Referral * MRI/CAT/PET Scan (Routine) - Closed Specialty Diagnoses / Procedures Referred By Contac t Referred To Contact Diagnoses Primary Malignant Neoplasm Of Prostate (HCC) Procedures PET CT Skull to Thigh PSMA Jesika Bragg P.A.-C., M.S. [address] [place] [phone] [facility] Region Referral ID Status Reason Start Date Expiration Date Visits Re quested Visits Authorized [id number] Closed 05/09/2024 05/09/2025 1 1 Reason for Visit * MRI/CAT/PET Scan (Routine) - Closed Specialty Diagnoses / Procedures Referred By Contac t Referred To Contact Diagnoses Primary Malignant Neoplasm Of Prostate (HCC) Procedures PET CT Skull to Thigh PSMA Jesika Bragg P.A.-C., M.S. [address] [place] [phone] [facility] Region Referral ID Status Reason Start Date Expiration Date Visits Re quested Visits Authorized [id number] Closed 05/09/2024 05/09/2025 1 1 Encounter Details Date Type Department Care Team (Latest Contact Info) Description 05/16/2024 11:15 AM CDT - 05/16/2024 11:59 PM CDT Hospital Encounter Department of Radiology in [address] [place] [phone] Jesika Bragg P.A.-C., M.S. [address] [place] [phone] Primary Malignant Neoplasm Of Prostate (HCC) Discharge Disposition: Home or Self Care Social History Tobacco Use Types Packs/Day Years Used Date Smoking Tobacco: Former Cigarettes 0.3 10 1 826 - 1483 Pipe Smokeless Tobacco: Never Dental Answer Date [...] CDT Appointment Department of Radiation Oncology in [place], [place] [address] [place] [phone] Sergio Foster M.D. [address] [place] [phone] 06/19/2024 12:00 PM CDT Appointment Department of Radiation Oncology in [place], [place] [address] [place] [phone] Sergio Foster M.D. [address] [place] [phone] documented as of this encounter Procedures Procedure [...] metastatic prostate disease. Jesika Bragg P.A.-C., M.S. IM NM PROCEDU RES documented in this encounter Visit [...]
--- OUTSIDE RECORDS SUMMARY | 2024-06-14 07:26 | XMS_ITS | Clinical Summary ---
Author Organization [facility] Address [address] [place] [address] Care Team Providers Care Ring Cutter Lathe Operator Name Role Phone Unavailable Primary Care Provider Unavailabl e Source Comments Patient records contain information from all sites at [facility]. For routine questions regarding patient records, call [phone] during business hours, M-F 8:00 AM - 5:00 PM Central Time. Record requests for emergency care only can be directed to [phone] at any time.[facility] Allergies No known active allergies Medications Medication Sig Dispensed Refills Start Date End Date Status aspirin [address] tablet Take 81 mg by mouth. 08/09/2022 Active atorvastatin (Lipitor) 80 mg tablet Take 1 tablet by mouth daily. 10/30/2013 Active metoprolol tartrate (Lopressor) 50 mg tablet Take 50 mg by mouth. 05/24/2023 Active Active Problems Problem Noted Date Diagnosed Date Trochanteric Bursitis Left Hip 05/29/2024 Primary Malignant Neoplasm Of Prostate Cancer Staging:Clinical stage from 03/08/2024:Stage IIB(cT1c, cN0, cM0, PSA: 8.4, Grade Group: 2) - Unsigned Encounters Date Type Department Care Team Description 05/29/2024 4:00 PM CDT - 05/29/2024 4:31 PM CDT Hospital Encounter Department of Radiation Oncology in [address] [phone] Sergio Foster M.D. Primary Malignant Neoplasm Of Prostate (HCC) (Primary Dx); Trochanteric Bursitis Left Hip 05/21/2024 9:12 AM CDT - 05/21/2024 2:11 PM CDT Hospital Encounter Department of Radiation Oncology in [address] [phone] Sergio Foster M.D. Primary Malignant Neoplasm Of Prostate (HCC) (Primary Dx); Pain Hip Left 05/16/2024 11:15 AM CDT - 05/16/2024 11:59 PM CDT Hospital Encounter Department of Radiology in [address] [phone] Jesika Bragg P.A.-C., M.S. Primary Malignant Neoplasm Of Prostate (HCC) Discharge Disposition: Home or Self Care 05/16/2024 10:14 AM CDT - 05/16/2024 11:14 AM CDT Hospital Encounter Department of Laboratory Medicine in [address] [phone] Jesika Bragg P.A.-C., M.S. Primary Malignant Neoplasm Of Prostate (HCC) Discharge Disposition: Home or Self Care 05/09/2024 10:05 AM CDT - 05/18/2024 2:17 PM CDT Hospital Encounter Department of Radiation Oncology in [address] [phone] Sergio Foster M.D. Primary Malignant Neoplasm Of [...] Smoking Tobacco: Former Cigarettes 0.3 10 1 976 - 4255 Pipe Smokeless Tobacco: Never Tobacco Cessation:Counseling Given: [...] Mass Index - - Plan of Treatment Upcoming Encounters Date Type Department Care Team (Late st Contact Info) Description 06/19/2024 11:30 AM CDT Appointment Department of Radiation Oncology in [place], [place] [address] [place] [phone] Sergio Foster M.D. [address] [place] [address] 06/19/2024 12:00 PM CDT Appointment Department of Radiation Oncology in [place], [place] [address] [place] [phone] eSrgio Foster M.D. [address] [place] [phone] Health Maintenance Due Date Last Done Comments Depression Screening (Annual PHQ-2) 10/10/2023 Fall Risk Screen (Annual) 10/10/2023 DTaP,Tdap,and Td Vaccines (2 - Td or Tdap) 05/15/2024 05/15/2014, 09/26/2006, 09/09/2006, Additional history exists COVID-19 Vaccine ( - 2022-2 4 season) 2024 08/12/2023, 07/06/2022, 07/29/2021, Additional history exists Influenza Vaccine (#1) 2024 , 07/06/2022, 06/24/2021, Additional history exists Pneumococcal vaccine (65+ years) Completed 01/08/2017, 01/02/2016, 09/26/2008, Additional history exists Zoster Vaccines Completed 04/16/2019, 05/0 10/2018, 11/05/2009, Additional history exists Procedures Procedure Name Priority Date/Time Associated Diagnosis Comments OUTSIDE DX SKELETAL Routine 05/21/2024 11:[address] SKULL TO THIGH PSMA RAD - Routine (most inpatients and all outpatients) 05/16/2024 12:58 PM CDT Primary Malignant Neoplasm Of Prostate (HCC) TESTOSTERONE, TOTAL BY MASS SPECROMETRY, S Routine 05/16/2024 10:34 AM CDT Primary Malignant Neoplasm Of Prostate (HCC) PROSTATE-SPECIFIC AG (PSA) DIAGNOSTIC, S Routine 05/16/2024 10:34 AM CDT Primary Malignant Neoplasm Of Prostate (HCC) from Last 3 Months Results * XR HIP LT MIN 2V-Outside Skeletal Xray (05/21/2024 11:20 AM CDT) Narrative IIMS - 05/21/2024 3:36 PM CDT This order has been created and auto-finalized to support the import of outside images. If available, original interpretation can be found on the Media Tab in Chart Review, in Document Viewer, as an image in QREADS or as an Addendum. If a re-interpretation or overread is required please follow defined workflow.?? Provider Not In System IMG DIAGNOSTIC IM AGING PROCEDURES IIMS NA * PET CT Skull to Thigh PSMA [...] metastatic prostate disease. Jesika Bragg P.A.-C., M.S. IMG NM PROCEDU RES * Testosterone, Total by Mass Spectrometry, Serum (05/16/2024 10:34 AM CDT) Testosterone, Total by Mass Spectrometry, Serum 538 240 - 950 ng/dL 05/20/2024 3:07 PM CDT [facility] Comment: ----ADDITIONAL INFORMATION---- Testing performed by Liquid Chromatography-Tandem Mass Spectrometry (LC-MS/MS). This test was developed and its performance characteristics determined by [facility] in a manner consistent with CLIA requirements. This test has not been cleared or approved by the U.S. Food and Drug Administration. Blood (Blood, Venous) 05/16/2024 10:34 AM CDT 05/17/2024 8:56 AM CDT Jesika Bragg P.A.-C. M.S. LAB BLOOD NON ADD-ON Performing Organization Address City/[facility]/ZIP Co de Phone Number [facility] [address] [place] [address] [facility] [address] [place] [address] [place] [address] * (ABNORMAL) PSA (Prostate-Specific Antigen), Diagnostic (05/16/2024 10:34 AM CDT) Pathologist [facility] Prostate-Specific Ag 8.3(H) <=7.2 ng/mL 05/16/2024 11:36 [...] Bragg P.A.-C. M.S. LAB BLOOD ADD- ON [facility] [address] [place] [address], [place] NPRG [facility] [address] [place] [address] from Last 3 Months
--- OUTSIDE RECORDS SUMMARY | 2024-06-14 07:26 | XMS_ITS ---
Author Organization [facility] Address [address] [place] [address] Care Team Providers Care Food Taster Name Role Phone Unavailable Unavailable Unavailable Surgery Details Not on file Complications Check Surgery Details section. Procedure Estimated Blood Loss Check Surgery Details section. Procedure Findings Check Surgery Details section. Procedure Specimens Taken Check Surgery Details section.
--- OUTSIDE RECORDS SUMMARY | 2024-06-14 07:26 | XMS_ITS | Referral Summary ---
Author Organization [facility] Address [address] [place] [address] Care Team Providers Care Rod Cup Filler Name Role Phone Unavailable Primary Care Provider Unavailabl e Source Comments Patient records contain information from all sites at [facility]. For routine questions regarding patient records, call [phone] during business hours, M-F 8:00 AM - 5:00 PM Central Time. Record requests for emergency care only can be directed to [phone] at any time.[facility] Encounters Date Type Department Care Team Description 05/29/2024 4:00 PM CDT - 05/29/2024 4:31 PM CDT Hospital Encounter Department of Radiation Oncology in [address] [phone] Sergio Foster M.D. Primary Malignant Neoplasm Of Prostate (HCC) (Primary Dx); Trochanteric Bursitis Left Hip 05/21/2024 9:12 AM CDT - 05/21/2024 2:11 PM CDT Hospital Encounter Department of Radiation Oncology in [address] [phone] Sergio Foster M.D. Primary Malignant Neoplasm Of Prostate (HCC) (Primary Dx); Pain Hip Left 05/09/2024 10:05 AM CDT - 05/18/2024 2:17 PM CDT Hospital Encounter Department of Radiation Oncology in [address] [phone] Sergio Foster M.D. Primary Malignant Neoplasm Of Prostate (HCC) (Primary Dx) 05/16/2024 10:14 AM CDT - 05/16/2024 11:14 AM CDT Hospital Encounter Department of Laboratory Medicine in [place], [place] [address] [place] [phone] Jesika Bragg P.A.-C., M.S. Primary Malignant Neoplasm Of Prostate (HCC) Discharge Disposition: Home or Self Care 05/16/2024 11:15 AM CDT - 05/16/2024 11:59 PM CDT Hospital Encounter Department of Radiology in [place], [place] [address] [place] [address] Jesika Bragg P.A.-C., M.S. Primary Malignant Neoplasm [...] Former Cigarettes 0.3 10 1 956 - 4755 Pipe Smokeless Tobacco: Never Tobacco Cessation:Counseling Given: [...] CDT Appointment Department of Radiation Oncology in [place], [place] [address] [place] [phone] Sergio Foster M.D. [address] [place] [phone] 06/19/2024 12:00 PM CDT Appointment Department of Radiation Oncology in [address] [phone] Sergio Foster M.D. [address] [place] [phone] Procedures Procedure Name Priority Date/Time Associated Diagnosis [...] In System IMG DIAGNOSTIC IM AGING PROCEDURES LIGIA NA * PET CT Skull to Thigh [...] or metastatic prostate disease. Jesika Bragg P.A.-C. MAdrianoS. [facility] PROCEDU RES * Testosterone, Total by Mass Spectrometry, Serum (05/16/2024 10:34 AM CDT) [facility] Testosterone, Total by Mass Spectrometry, Serum 538 240 - 950 ng/dL 05/20/2024 3:07 PM CDT [facility] Comment: ----ADDITIONAL INFORMATION---- Testing performed by Liquid Chromatography-Tandem Mass Spectrometry (LC-MS/MS). This test was developed and its performance characteristics determined by [facility] in a manner consistent with CLIA requirements. This test has not been cleared or approved by the U.S. Food and Drug Administration. Blood (Blood, Venous) 05/16/2024 10:34 AM CDT 05/17/2024 8:56 AM CDT Jesika Bragg P.A.-C. M.S. LAB BLOOD NON ADD-ON [facility] [address] [place] [address] [facility] [address] [place] [address] [place] [address] * (ABNORMAL) PSA (Prostate-Specific Antigen), Diagnostic (05/16/2024 [...] Bragg P.A.-C., M.S. LAB BLOOD ADD- ON [facility] [address] [place] [address], [facility] NPRG [facility] [address] [place] [address] from Last 3 Months
--- OUTSIDE RECORDS SUMMARY | 2024-06-14 07:27 | XMS_ITS | Clinical Summary ---
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 180 Tablet 3 06/10/2023 Active aspirin (ECOTRIN) 81 mg enteric coated tablet Take 81 mg by mouth once daily with a meal. 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) Take 1 [...] Encounters Date Type Department Care Team Description 06/13/2024 Telephone [facility] [address] [place] [address] Joey Lopez MD Appointment 05/21/2024 Orders Only [facility] Scanner 1 scan: (1-Ord) [place], XR HIP LT MIN 2V, 05/21/2024 from Last 3 Months Immunizations Name Administration Dates Next Due AMB Influenza, IIV4 PF (=>6 mos Flulaval,Fluzone Fluarix)(Flu Clinic Only) 08/06/2014 COVID-19 vaccine ([employer] NTYieldPlanet 30mcg/0.3mL) PF, MDV 07/29/2021,11/22/2020,11/01/2020 Influenza A (H1N1), [...] smoked a pipe while working at the [employer] Alcohol Use Standard Drinks/Week Comments Yes 7 (1 standard drink = 0.6 oz pure alcohol) one glass of wine in the evening PHQ-2 Answer Date Recorded PHQ-2 TOTAL SCORE 0 06/10/2023 Social Connections Answer Date Recorded Frequency of Communication with Friends and Fami ly Not on file 06/10/2024 Financial Resource Strain Answer Date R ecorded [...] Comments Blood Pressure 128/80 11/29/2023 10:32 AM HAND BASEBALL SEWER Pulse 60 11/29/2023 10:32 AM HAND BASEBALL SEWER Temperature 36.2 ??C (97.1 ??F) 11/29/2022 4:41 PM CS T Respiratory Rate 16 11/29/2022 5:15 PM HAND BASEBALL SEWER Oxygen Saturation 96% 11/29/2023 10:32 AM HAND BASEBALL SEWER Inhaled Oxygen Concentration - - Weight 65.8 kg (145 lb) 08/29/2023 1:14 PM HAND BASEBALL SEWER Height 164.5 cm (5' 4.75) 06/10/2023 11:12 AM C DT Body Mass Index 24.32 06/10/2023 11:12 AM CDT Plan of Treatment Health Maintenance Due Date Last Done Comments RSV vaccine for adults or (1 - 1-dose 60+ series) 2000 Tetanus booster 05/15/2024 05/15/2014, 09/09, 09/09/2006, Additional history exists BMI (ht and wt on same day) for age 18+ 06/10/2024 06/10/2023, 11/19/2022, 10/28/2022, Additional history exists COVID-19 vaccine series (24 season) 2024 08/12/2023, 07/06/2022, 07/29/2021, Additional history exists Depression screening for age [...] history exists Medical Devices Implanted Type Area Shelter Advocate Device Identifier Shelf Expiration Date Model / Serial / Lot Mesh Inguinal Rt [id number] 3-D Max Mid Xlg - [id number] Implanted:Qty: 1 on 11/29/2022 by Elio Hilton MD at [facility] Right: Inguinal [employer] 07/07/2027 [id number] / / [id number] Mesh Inguinal Lt [id number] 3-D Max Mid Xlg - [id number] Implanted:Qty: 1 on 11/29/2022 by Elio Hilton MD at [facility] Left: Inguinal [employer] 06/17/2027 [id number] / / [id number] Procedures Procedure Name Priority Date/Time Associated Diagnosis Comments SCAN-RADIOLOGY REPORT 05/21/2024 12:00 AM CDT from Last 3 Months Results * SCAN-RADIOLOGY REPORT (05/21/2024 12:00 AM CDT) Anatomical Region Laterality Modality Other Scanner OTHER from Last 3 Months Advance Directives Documents on File Type Date Recorded Patient Back Closer Expl anation Healthcare Directive 02/17/2022 022 * Full Code (Latest Code Status on File) Date Activated Date Inactivated Comments 11/29/2022 12:13 PM 11/29/2022 7:27 PM Question Answer Comments Code Status Discussion: Reviewed Preferences Care Teams Bow Repairer Custom Relationship Specialty [place] [address] [place] [address] PCP - General 08/21/10
--- OUTSIDE RECORDS SUMMARY | 2024-06-14 07:27 | XMS_ITS | Continuity of Care Document ---
Author Organization [facility], [facility] Address [address] [place] [address] Care Team Providers Care Electrocardiograph Operator Name Role Phone DIONNE COTTO Referring Provider [phone] Assessment No assessment recorded. Plan of Treatment Reminders Order Date Submit Date Provider Last Modified By Organization Details Last Modified Time Details Appointments None recorded. Lab None recorded. Referral radiation oncologist referral 2023 024 YINA Foster MD, [address] [place], [address], 4 08:17:34 Procedures None recorded. Surgeries None recorded. Imaging None recorded. Medication Orders None recorded. Patient TargetsNo targets recorded. Patient InstructionsNo instructions recorded. Reason for Referral Referring Physician: Genaro Rosa, Encounter Date: 04/02/2024 Problems Name Problem SNOMED Code Status Onset Date Resolution Date Notes Provider Name and Address Organization Details Recorded Time Prostate specific antigen above reference range 715496459 Active 024 Tonio Bhatt MD [address] [place] [address],[address] [place] [address], [phone], [facility] 4 12:31:19 Malignant tumor of prostate 637765431 Active 024 Tonio Bhatt MD [address] [place] [address],[address] [place] [address], [phone], [facility] 4 17:58:30 Problem Notes None recorded. Procedures Surgical History Date Name Laterality Status Provider Name and Address Organization Details Recorded Time COMPLEX VISIT completed Tonio Bhatt MD [address] [place] [address],[address], [place], [address], [facility] 04/02/2024 17:58:21 4 Prostate Biopsy Procedure completed Tonio Bhatt MD [address] [place] [address],[address], [place], [address], [facility] 03/08/2024 11:46:16 4 Rocephin[facility]Edili axone [facility]/08/2024 11:07:02 4 URONAV completed Tonio Bhatt MD [address] [place] [address],[address], [address], [facility] 03/08/2024 11:46:23 4 [facility]24 17:25:27 Imaging Results None recorded. Procedure [...] Updated DateTime 04/02/2024 167.64 cm 22.9 kg/m2 31912.[address] [facility] 04/02/2024 17:24:55 Social History Question Answer Notes LastModified by Organizat ion Details LastModified Time Tobacco Smoking Status Never Smoker Willam coleman [facility] 01/04/2024 11:51:16 What Is Your Level [...] High Blood Pressure N Kidney Stones N Depression N Sexually Transmitted Infection N Cancer N Bleeding Disorder N Lung Disease N GERD/Acid Reflux N High Cholesterol N Diabetes N Heart Disease N Immunizations Vaccine Type Date Status Provider Name and Address Organization Details Recorded Time Influenza, adjuvanted, trivalent, PF 08/06/2019 [facility] 01/04/2024 11:50:53 Influenza, adjuvanted, trivalent, PF 09/26/2018 [facility]/04/2024 11:50:53 Influenza, high-dose, quadrivalent, PF 07/06/2022 completed [facility] 01/04/2024 11:50:53 Influenza, high-dose, quadrivalent, PF 07/11/2023 [facility] 01/04/2024 11:50:53 COVID-19, mRNA, LNP-S, bivalent, PF, 30 mcg/0.3 mL dose 07/06/2022 [facility] 01/04/2024 11:50:53 COVID-19, mRNA, LNP-S, PF, lashawn-sucrose, 30 mcg/0.3 mL 08/12/2023 completed Dezera Sieracki null, [facility] 01/04/2024 11:50:53 pneumococcal polysaccharide PPV23 09/09/2008 completed Dezera Sieracki null, [facility] 01/04/2024 11:50:53 pneumococcal polysaccharide PPV23 09/26/2008 completed Dezera Sieracki null, [facility] 01/04/2024 11:50:53 Pneumococcal conjugate PCV 13 01/08/2017 completed Dezera Sieracki null, [facility] 01/04/2024 11:50:53 zoster live 10/10/2009 completed Dezera Sieracki null, [facility] 01/04/2024 11:50:53 Influenza, high-dose, trivalent, PF 09/03/2015 completed Dezera Sieracki null, [facility] 01/04/2024 11:50:53 Influenza, split virus, trivalent, preservative 07/04/2009 completed Dezera Sieracki null, [facility] 01/04/2024 11:50:53 Influenza, split virus, trivalent, preservative 08/20/2013 completed Dezera Sieracki null, [facility] 01/04/2024 11:50:53 Influenza, split virus, trivalent, preservative 08/22/2008 completed Dezera Sieracki null, [facility] 01/04/2024 11:50:53 Influenza, split virus, trivalent, preservative 09/03/2003 completed Dezera Sieracki null, [facility] 01/04/2024 11:50:53 Influenza, split virus, trivalent, preservative 09/10/2005 completed Dezera Sieracki null, [facility] 01/04/2024 11:50:53 Influenza, split virus, trivalent, preservative 09/22/2012 completed Dezera Sieracki null, [facility] 01/04/2024 11:50:53 Influenza, split virus, trivalent, preservative 09/26/2006 completed Dezera Sieracki null, [facility] 01/04/2024 11:50:53 Influenza, split virus, trivalent, preservative 09/26/2007 completed Dezera Sieracki null, [facility] 01/04/2024 11:50:53 Influenza, split virus, trivalent, preservative 09/28/2010 completed Dezera Sieracki null, [facility] 01/04/2024 11:50:53 Td (adult), 2 Lf tetanus toxoid, preservative free, adsorbed 09/09/2006 completed Dezera Sieracki null, [facility] 01/04/2024 11:50:53 Td (adult), 2 Lf tetanus toxoid, preservative free, adsorbed 09/26/2006 completed Dezera Sieracki null, [facility] 01/04/2024 11:50:53 Influenza, split virus, quadrivalent, PF 08/06/2014 completed Dezera Sieracki null, [facility] 01/04/2024 11:50:53 Past Encounters Encounter ID Performer Location Encounter Start Date Encounter Closed Date Diagnosis/Indication Diagnosis SNOMED-CT Code Diagnosis ICD10 Code [id number] Tonio Bhatt MD [facility] [address] [address] 03/08/2024 10:49:12 03/15/2024 11:29:55 Prostate specific antigen above reference range 882064759 R97.20 [id number] Tonio Bhatt MD [address] [place] [address] 04/02/2024 16:33:36 04/11/2024 16:10:40 Malignant tumor of prostate 855787073 C61 Health Concerns Section Related Observation LastModified by Organization Detai ls LastModified Time None Recorded Concern Status LastModified by Organization Details LastModified Time None Recorded Payers Encounter Date Sequence Insurance Name Policy Number Policy Dia Covered Member ID Dia Member ID Guarantor Name 04/02/2024 1 [employer] (MEDICARE REPLACEMENT/A DVANTAGE - PPO) Rudy May [id number] Rudy Garsia Yadira 04/02/2024 2 MED[place] [employer] [facility] Rudy Nathanheronarminda [id number] Rudy Garsia Yadira Notes Date Note Type Note Provider Name [...] Cotto dated 08/29/2023. His last PSA at [facility] was 8.37 on 11/29/2023, previously 6.43 [...] [facility]ro[facility]. 04/02/24: Prostate biopsy on 03/08/2024 shows Steger grade 3+4 = 7 prostate cancer in up to 85% of the biopsy cores bilaterally and Yesika grade 3+3 = 6 prostate cancer in 80% of 2 cores from the MRI lesion. He is here along with his for prostate cancer counseling. Tonio Bhatt MD [address], [place], [address], [facility] 04/02/2024 18:01:14
--- NOTE | 2024-06-14 08:00 | CRLHL7_ITS ---
For Patients: As a result of the Century Cures Act, medical imaging exams and procedure reports are released immediately into your electronic medical record. You may view this report before your referring provider. If you have questions, please contact your health care provider. INDICATION: Left hip pain. Left hip replacement. TECHNIQUE: 25.8 mCi Tc-99m labeled MDP administered. A three-phase bone scan of the pelvis and hips was performed. COMPARISON: Correlation is made with x-rays of the left hip May 21, 2024. FINDINGS: Normal flow phase. Normal blood pool phase. Delayed images demonstrate a photopenic defect from a left hip arthroplasty. Minor activity along the femoral component of the hip arthroplasty likely reflects some degree of mild bony remodeling. Degenerative type activity lower lumbar spine toward the right of midline. Skin contamination along the scrotum. IMPRESSION: 1. No scintigraphic evidence for loosening of the left hip arthroplasty. 2. Delayed images demonstrate minor uptake about the femoral component of the left hip arthroplasty which may reflect minor bony remodeling. Dictated by Warren Hernandez MD @ 06/14/2024 1:48:25 PM (Electronically Signed)
== END 2024-06-14 07:24 | disposition home or self-care (01) ==
LOC: NM 07:24
PROVIDERS: PCP Family Medicine; Visit Provider Orthopaedic Surgery
DX: T84.031A Mechanical loosening of internal left hip prosthetic joint, initial encounter (principal)
CPT/HCPCS: 78315; A9503

== ENCOUNTER 2024-06-19 13:31 | Outpatient (CLI) | payer OTHER, SELFPAY ==
--- OUTSIDE RECORDS SUMMARY | 2024-06-19 13:38 | XMS_ITS | Encounter Summary ---
Author Name [facility] Organization [facility] Address [address] [place] [address] Care Team Providers Care Salon Professional Name Role Phone GERRY FELICIANO Primary Care Provider Unavailmally [facility] Insurance Providers: All historical and current Section [...] Name Patient's Relationship to Policy Dia HUMANA MCR (WNR) MEDICARE [facility] ([facility]) Oct 10, 2021 [id number] KLEARAMIS JAVED PATIENT HU[employer]NA MCR (WNR) MEDICARE ADVANTAGE [facility] ([place]) Oct 10, 2017 [id number] KLEARAMIS JAVED PATIENT [employer] MCR (WNR) MEDICARE ADVANTAGE [facility] ([place]) Oct 10, 2017 [id number] [phone] KLEPPARAMIS THOMPSON PATIENT MEDICA MCR (WNR) MEDICARE ADVANTAGE MCR ([facility]) Oct 10, 2022 [id number] BRIANDA Veloz,ARAMIS PATIENT Selected Encounter This section includes the information on record at [place] for the Encounter. Date/Time Encounter Type Encounter Description Reason Pro vider Source Aug 22, 2023 02:08 PM Outpatient Encounter [facility] CONSULT [facility] Encounter Template Text not used by [facility] Lab Results: +/- 30 days of the encounter This section includes the Chemistry and Hematology Lab Results on record with [place] for the patient. Radiology Reports and Pathology [...] Aug 09, 2023 09:29 AM Reporting Lab: [facility] [id number] Performing Lab: [facility] [id number] CREATININE 0.8 mg/dL 0.7-1.2 UREA NITROGEN 16 [...] Aug 09, 2023 09:29 AM Reporting Lab: [facility] [id number] Performing Lab: [facility] [address] WBC 5.68 10*3/uL 4.0-11.0 RBC 4.63 10*6/uL [...] and tobacco- related health factors from the [place] facility where the Encounter took place. Current Smoking Status This section includes the most current smoking, or tobacco-related health factor, from the [place] facility where the Encounter took place. Date/Time Current Smoking Status Comment Facil ity February 26, 2021 06:49 PM VA-TOBACCO FORMER USER [facility] Tobacco Use History This section includes a history of the smoking, or tobacco-related health factors, that were collected on or before the date of the Encounter. The data comes from the [place] facility where the Encounter took place. Date/Time Smoking Status/Tobacco Use Comment F acility February 26, 2021 06:51 AM VA-TOBACCO NEVER USED [facility] Oct 20, 2015 03:17 PM INPT NO TOBACCO USE IN LAST 30 D AYS [facility] May 15, 2014 01:37 PM FORMER TOBACCO USER 7Y OR GREATE R [facility] Sep 09, 2008 10:33 AM LIFETIME NON-TOBACCO USER [facility] Advance Directives: All historical and current Section Date Range: From patient's date of to the date document was created. This section includes ALL of a patient's completed or amended [place] Advance and Rescinded Directives. The entries below indicate that a directive exists for the patient, but an actual copy is not included with this document. The data comes from all [place] facilities. Date Advance Directives Provider Source May 16, 2019 ADVANCE DIRECTIVE NOLAN MARTINEZ CB May 16, 2019 ADVANCE DIRECTIVE DISCUSSION DAMIAN MARTINEZ CB Oct 20, 2015 CLINICAL WARNING [facility] Encounter Notes: All associated encounter notes This section contains the clinical notes associated to the Encounter. Date/Time Encounter Note(s) Provider Source Aug 22, 2023 02:08 PM PHARMACY NOTE: LOCAL TITLE: PHARMACY NON [place] CARE MEDICATIONS STANDARD TITLE: PHARMACY NOTE DATE OF NOTE: AUG 22, 2023@14:08 ENTRY DATE: AUG 22, 2023@14:09:02 AUTHOR: KYREE MENDEZ EXP COSIGNER: URGENCY: STATUS: COMPLETED [facility] Outpatient Pharmacy RECEIVED electronic prescription(s) (eRX(s)) from NON-VA Provider: ZOË KIMBROUGH Date eRX received: Aug not eligible to receive non-VA prescription(s) at this time. Prescription(s) REDIRECTED via FAX to: [X] [facility]Dual) [facility] eRx Reference #: [id number] eRx Prescription Information: rosuvastatin 40 mg tablet (CRESTOR) eRx Qty: 90 eRx Refills: 3 Take 1 Tablet (40 mg) by mouth at bedtime /zander/ Kyree Mendez, Pharm.D PHARMACIST Signed: 08/22/2023 14:09 KYREE MENDEZ [facility]
--- OUTSIDE RECORDS SUMMARY | 2024-06-19 13:38 | XMS_ITS | Clinical Summary ---
Author Organization [facility] Address [address] [place] [address] Care Team Providers Care Employee Placement Specialist Name Role Phone Unavailable Primary Care Provider Unavailabl e Source Comments Patient records contain information from all sites at [facility]. For routine questions regarding patient records, call [phone] during business hours, M-F 8:00 AM - 5:00 PM Central Time. Record requests for emergency care only can be directed to [phone] at any time.[facility] Allergies No known active allergies Medications Medication [...] Encounters Date Type Department Care Team Description 06/19/2024 12:22 PM T Hospital Encounter Department of Radiation Oncology in [address] [address] Sergio Foster M.D. Primary Malignant Neoplasm Of Prostate (HCC) 06/19/2024 11:06 AM CDT Hospital Encounter Department of Radiation Oncology in [address] [address] Sergio Foster M.D. Primary Malignant Neoplasm Of Prostate (HCC) (Primary Dx) 05/29/2024 4:00 PM CDT - 05/29/2024 4:31 PM CDT Hospital Encounter Department of Radiation Oncology in [address] [address] Sergio Foster M.D. Primary Malignant Neoplasm Of Prostate (HCC) (Primary Dx); Trochanteric Bursitis Left Hip 05/21/2024 9:12 AM CDT - 05/21/2024 2:11 PM CDT Hospital Encounter Department of Radiation Oncology in [address] [address] Sergio Foster M.D. Primary Malignant Neoplasm Of Prostate (HCC) (Primary Dx); Pain Hip Left 05/16/2024 11:15 AM CDT - 05/16/2024 11:59 PM CDT Hospital Encounter Department of Radiology in [address] [address] Jesika Bragg P.A.-C., M.S. Primary Malignant Neoplasm Of Prostate (HCC) Discharge Disposition: Home or Self Care 05/16/2024 10:14 AM CDT - 05/16/2024 11:14 AM CDT Hospital Encounter Department of Laboratory Medicine in [address] [address] Jesika Bragg P.A.-C., M.S. Primary Malignant Neoplasm Of Prostate (HCC) Discharge Disposition: Home or Self Care 05/09/2024 10:05 AM CDT - 05/18/2024 2:17 PM CDT Hospital Encounter Department of Radiation Oncology in [address] [address] Sergio Foster M.D. Primary Malignant Neoplasm Of [...] Smoking Tobacco: Former Cigarettes 0.3 10 1 076 - 1059 Pipe Smokeless Tobacco: Never Tobacco Cessation:Counseling Given: Not Answered Dental Answer Date Recorded Dental: Regular Dentist Unknown 04/26/20 Sex and Gender Information Value Date Recorded Sex Assigned at Not on file Gender Identity Not on file Sexual Orientation Not on file Last Filed Vital Signs Vital Sign Reading Time Taken Comments Blood Pressure 125/60 06/19/2024 11:21 AM CDT Pulse 66 06/19/2024 11:21 AM CDT Temperature 36.3 ??C (97.4 ??F) 06/19/2024 11:21 AM C DT Respiratory Rate - - Oxygen Saturation - - Inhaled Oxygen Concentration - - Weight 64.9 kg (143 lb 1.3 oz) 06/19/2024 11:21 AM CDT Height 164.3 cm (5' 4.69) 10/30/2013 10:[address] Body Mass Index - - Plan of Treatment Upcoming Encounters Date Type Department Care Team (Late st Contact Info) Description 06/27/2024 1:45 PM CDT Appointment Department of Radiation Oncology in [place], [place] [address] [place] [address] Sergio Foster M.D. [address] [place] [address] Health Maintenance Due Date Last Done Comments Depression Screening (Annual PHQ-2) 10/10/2023 Fall Risk Screen (Annual) 10/10/2023 DTaP,Tdap,and Td Vaccines (2 - Td or Tdap) 05/15/2024 05/15/2014, 09/26/2006, 09/09/2006, Additional history exists COVID-19 Vaccine ( - 2022- season) 2024 08/12/2023, 07/06/2022, 07/29/2021, Additional history exists Influenza Vaccine (#1) 2024 , 07/06/2022, 06/24/2021, Additional history exists Pneumococcal vaccine (65+ years) Completed 01/08/2017, 01/02/2016, 09/26/2008, Additional history exists Zoster Vaccines Completed 04/16/2019, 0510/2018, 11/05/2009, Additional history exists HPV Vaccines Aged Out No longer eligi ble based on patient's age to complete this topic Procedures Procedure Name Priority Date/Time Associated Diagnosis Comments INITIAL RAD ONC TREATMENT PLANNING CT SIMULATION Routine 06/19/2024 12:30 PM CDT Primary Malignant Neoplasm Of Prostate (HCC) OUTSIDE DX SKELETAL Routine 05/21/2024 11:20 AM [...] metastatic prostate disease. Jesika Bragg P.A.-C. MAdrianoS. [facility] NM PROCEDU RES * Testosterone, Total by Mass Spectrometry, Serum (05/16/2024 10:34 AM CDT) Testosterone, Total by Mass Spectrometry, Serum 538 240 - 950 ng/dL 05/20/2024 3:[address] [facility] Comment: ----ADDITIONAL INFORMATION---- Testing performed by Liquid Chromatography-Tandem Mass Spectrometry (LC-MS/MS). This test was developed and its performance characteristics determined by [facility] in a manner consistent with CLIA requirements. This test has not been cleared or approved by the U.S. Food and Drug Administration. Blood (Blood, Venous) 05/16/2024 10:34 AM CDT 05/17/2024 8:56 AM CDT Jesika Bragg P.A.-C., M.S. LAB BLOOD NON ADD-ON [facility] [address] [place] [address] [facility] [address] [place] [address] [place] [address] * (ABNORMAL) PSA (Prostate-Specific Antigen), Diagnostic (05/16/2024 10:34 AM CDT) Prostate-Specific Ag 8.3(H) <=7.2 ng/mL 05/16/2024 11:36 AM CDT [facility] Comment: ----ADDITIONAL INFORMATION---- The testing method is an electrochemiluminescence assay manufactured by [employer] and performed on the Gelesis or [employer] system. Values obtained with different assay methods or kits may be different and cannot be used interchangeably. Test results cannot be interpreted as absolute evidence for the presence or absence of malignant disease. Blood (Blood, Venous) 05/16/2024 10:34 AM CDT 05/16/2024 11:02 AM CDT Jesika Bragg P.A.-C., M.S. LAB BLOOD ADD- ON [facility] [address] [place] [address], [facility] [address] [place] [address] from Last 3 Months
--- OUTSIDE RECORDS SUMMARY | 2024-06-19 13:38 | XMS_ITS | Encounter Summary ---
Author Organization [facility] Address [address] [place] [address] Care Team Providers Care Furniture Associate Name Role Phone Unavailable Primary Care Provider Unavailabl e Reason for Referral * Radiation Therapy (Routine) - Closed Specialty Diagnoses / Procedures Referred By William blanca Referred To Contact Diagnoses Primary Malignant Neoplasm Of Prostate (HCC) Procedures Initial Rad Onc Treatment Planning CT Simulation without IV Contrast Sergio Foster M.D. [address] [place] [address] [facility] Region Referral ID Status Reason Start Date Expiration Date Visits Re quested Visits Authorized [id number] Closed 05/29/2024 05/29/2025 1 1 Reason for Visit * Radiation Therapy (Routine) - Closed Specialty Diagnoses / Procedures Referred By William blanca Referred To Contact Diagnoses Primary Malignant Neoplasm Of Prostate (HCC) Procedures Initial Rad Onc Treatment Planning CT Simulation without IV Contrast Sergio Foster M.D. [address] [place] [address] [facility] Region Referral ID Status Reason Start Date Expiration Date Visits Re quested Visits Authorized [id number] Closed 05/29/2024 05/29/2025 1 1 Encounter Details Date Type Department Care Team (Latest Contact Info) Description 06/19/2024 12:22 PM CDT Hospital Encounter Department of Radiation Oncology in [place], [place] [address] [place] [address] Sergio Foster M.D. [address] [place] [phone] Primary Malignant Neoplasm Of Prostate (HCC) Social History Tobacco Use Types Packs/Day Years Used Date Smoking Tobacco: Former Cigarettes 0.3 10 1 956 - 3290 Pipe Smokeless Tobacco: Never Dental Answer Date Recorded Dental: Regular Dentist Unknown 04/26/20 Sex and Gender Information Value Date Recorded Sex Assigned at Not on file Gender Identity Not on file Sexual Orientation Not on file documented as of this encounter Plan of Treatment Upcoming Encounters Date Type Department Care Team (Late st Contact Info) Description 06/27/2024 1:45 PM CDT Appointment Department of Radiation Oncology in [place], [place] [address] [place] [phone] Sergio Foster M.D. [address] [place] [address] Pending Results Name Type Priority Associated Diagnoses Date/Time Initial Rad Onc Treatment Planning CT Simulation without IV Contrast Procedural Imaging Routine Primary Malignant Neoplasm Of Prostate (HCC) 06/19/2024 12:30 PM CDT documented as of this encounter Procedures Procedure Name Priority Date/Time Associated Diagnosis Comments INITIAL RAD ONC TREATMENT PLANNING CT SIMULATION Routine 06/19/2024 12:30 PM CDT Primary Malignant Neoplasm Of Prostate (HCC) documented in this encounter Visit Diagnoses Diagnosis Primary Malignant Neoplasm Of Prostate (HCC) documented in this encounter
--- OUTSIDE RECORDS SUMMARY | 2024-06-19 13:38 | XMS_ITS ---
Author Organization [facility] Address [address] [place] [address] Care Team Providers Care Channel Business Manager Name Role Phone Unavailable Unavailable Unavailable Surgery Details Not on file Complications Check Surgery Details section. Procedure Estimated Blood Loss Check Surgery Details section. Procedure Findings Check Surgery Details section. Procedure Specimens Taken Check Surgery Details section.
--- OUTSIDE RECORDS SUMMARY | 2024-06-19 13:38 | XMS_ITS | Encounter Summary ---
Author Name [facility] [place] Organization [place] Address [address] [place] [address] Care Team Providers Care Certified Surgical Tech/First Assistant Name Role Phone GERRY FELICIANO Primary Care [...] Name Patient's Relationship to Policy Dia HUMANA [facility] ([facility]) MEDICARE ADVANTAGE MCR ([facility]) Oct 10, 2021 [id number] KLEPPERIC H,ARAMIS PATIENT HUMANA [facility] ([facility]) MEDICARE [facility] ([facility]) Oct 10, 2017 [id number] KLEPPERIC H,ARAMIS PATIENT HUMANA [facility] ([facility]) MEDICARE [facility] ([facility]) Oct 10, 2017 [id number] KLEPPERIC H,ARAMIS PATIENT MEDICA MCR ([facility]) MEDICARE ADVANTAGE MCR ([facility]) Oct 10, 2022 [id number] KLEPPERIC H,ARAMIS PATIENT Selected Encounter This section includes the information on record at [place] for the Encounter. Date/Time Encounter Type Encounter Description Reason Provider Source Aug 09, 2023 09:00 AM OFFICE O/P EST MOD 30-39 MIN PRIMARY CARE/MEDICINE ICD-10-CM Z00.8 Encounter for other general examination KATHRYN FELICIANO E Encounter Template Text not used by [place] Assessments - Encounter Diagnoses This section includes the primary and secondary diagnoses documented for the Encounter. Date/Time Primary/Secondary Diagnosis Diagnosis Name Provider Source Aug 09, 2023 09:38 AM PRIMARY Encounter for other general examination KATHRYN FELICIANO [facility] Aug 09, 2023 09:38 AM SECONDARY Essential (primary) hypertension KATHRYN FELICIANO [facility] Aug 09, 2023 09:38 AM SECONDARY Hyperlipidemia, unspecified KATHRYN FELICIANO Plan of Treatment: Future Appointments (+ 6 months) and Future Tests (+/- 45 days) The Plan of Treatment section includes future care activities for the patient from all [place] treatmentfacilities. This section includes future appointments and future orders which are active, pending or scheduled. Future Appointments This section includes appointments that were scheduled to occur 6 months from the date of the Encounter, up to a maximum of 20 appointments. The data comes from all [place] treatment facilities. Appointment Date/Time Appointment Type Appointme nt Facility Name Aug 12, 2023 01:00 PM AMBULATORY - NONE [facility] Lab Results: +/- 30 days of the encounter This section includes the Chemistry and Hematology Lab Results on record with [place] for the patient. Radiology Reports and Pathology [...] Aug 09, 2023 09:29 AM Reporting Lab: [facility] [id number] Performing Lab: [facility] [id number] CREATININE 0.8 mg/dL 0.7-1.2 UREA NITROGEN 16 [...] 88 >60 Aug 09, 2023 09:36 AM [facility] CBC & DIFF Specimen Type: BLOOD Comment: Automated Differential Performed Ordering Provider: KATHRYN FELICIANO Report Released Date/Time: Aug 09, 2023 09:29 AM Reporting Lab: [facility] [id number] Performing Lab: [facility] [id number] WBC 5.68 10*3/uL 4.0-11.0 RBC 4.63 10*6/uL [...] and tobacco- related health factors from the [place] facility where the Encounter took place. Current Smoking Status This section includes the most current smoking, or tobacco-related health factor, from the [place] facility where the Encounter took place. Date/Time Current Smoking Status Comment Facil ity Aug 09, 2023 09:00 AM VA-TOBACCO NEVER USED [facility] Tobacco Use History This section includes a history of the smoking, or tobacco-related health factors, that were collected on or before the date of the Encounter. The data comes from the [place] facility where the Encounter took place. Date/Time Smoking Status/Tobacco Use Comment F acility Aug 09, 2022 09:30 AM VA-TOBACCO FORMER USER [facility] Aug 09, 2022 09:30 AM VA-TOBACCO QUIT 15 YRS OR MORE [facility] Jan 10, 2019 10:36 AM VA-TOBACCO FORMER USER [facility] Jan 10, 2019 10:36 AM VA-TOBACCO QUIT 15 YRS OR MORE [facility] February 10, 2018 09:26 AM FORMER TOBACCO USER 7Y OR GREATE R [facility] February 15, 2017 09:06 AM FORMER TOBACCO USER 7Y OR GREATE R [facility] Jan 02, 2016 04:35 AM FORMER TOBACCO USER 7Y OR GREATE R [facility] February 17, 2015 06:49 AM FORMER TOBACCO USER 7Y OR GREATE R [facility] Advance Directives: All historical and current Section Date Range: From patient's date of to the date document was created. This section includes ALL of a patient's completed or amended VA Advance and Rescinded Directives. The entries below indicate that a directive exists for the patient, but an actual copy is not included with this document. The data comes from all [place] facilities. Date Advance Directives Provider Source May 16, 2019 ADVANCE DIRECTIVE [facility] May 16, 2019 ADVANCE DIRECTIVE DISCUSSION [facility] Oct 20, 2015 CLINICAL WARNING [facility] Encounter Notes: All associated encounter notes This section contains the clinical notes associated to the Encounter. Date/Time Encounter Note(s) Provider Source Aug 10, 2023 08:36 AM LETTERS: LOCAL TITLE: FOLLOW UP RESULTS LETTER STANDARD TITLE: LETTERS DATE OF NOTE: AUG 10, 2023@08:36 ENTRY DATE: AUG 10, 2023@08:36:53 AUTHOR: GERRY FELICIANO COSIGNER: URGENCY: STATUS: COMPLETED [facility] [address] [place] [address] Aug [facility]AMIS [facility] [address] [facility] [address] Dear : I am writing to inform you of the results of testing that you had done recently at the [facility]. - Complete Blood Count (red/white blood cell [...] staff or provider at the following number: [phone]. Sincerely, GERRY FELICIANO PHYSICIAN [facility] [...] medications and/or herbals. 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 The /caregiver was informed that we will continue to [...] treatment. 2. Complete a durable power of district attorney for health care. 3. Complete a living will. ADVANCE DIRECTIVE SCREENING: Does patient have an Advance Directive? The patient has an Advance Directive. Does the patient wish to make any changes or revoke their current Advance Directive? No changes requested at this time. Suicide Screen: C-SSRS Screening [place] Suicide Severity Rating Scale (C-SSRS) screener 1. [...] pressure ulcers, or a wound from a lead medical technologist or Patient is bed-confined or a wheelchair-user or Patient requires assistance to transfer/change position No, Skin Screen is Negative Home Abuse/Violence Screen Is your home free of abuse and violence? Yes MOVE! Program Screen Body Mass Index (BMI)= 24.9 [place]: Collection DT Specimen Test Name Result Units Ref Range 08/09/2022 10:36 BLOOD !! HEMOGLOBIN A1C 5.8 % 4.0 - 6.0 !! Indicates COMMENTS AVAILABLE...Refer to Interim Lab Report. [place] Hgb A1C: No data available [place] Hgb A1C: No data available Point of Care Hgb A1C: POC HGB A1C____ Outpatient Nutrition Screen Body Mass Index (BMI)= 24.9 [place]: Collection DT Specimen Test Name Result Units Ref Range 08/09/2022 10:36 BLOOD !! HEMOGLOBIN A1C 5.8 % 4.0 - 6.0 !! Indicates COMMENTS AVAILABLE...Refer to Interim Lab Report. [place] Hgb A1C: No data available [place] Hgb A1C: No data available Point of [...] covid vaccine outside. /zander/ VINCE SARAVIA LPN [facility] Signed: 08/09/2023 09:31 ARMIDA PAYNE [facility] Aug 09, 2023 09:24 AM H & P NOTE: LOCAL TITLE: [facility] ANNUAL VISIT STANDARD TITLE: H [...] (ICD-9-CM 388.30) ACTIVE 2. Hyperlipidemia (SNOMED CT 48931665) ACTIVE 3. Personal History of Colonic Polyps (ICD-9-CM V12.7 ACTIVE 4. Degeneration, Vitreous ACTIVE 5. Gastroesophageal reflux disease (SNOMED CT 8382969 ACTIVE 6. Atypical chest pain ACTIVE 7. [...] SEASONAL 09/26/2018 [facility]* 07/14/2017 [place]* 08/04/2016 [facility]* 09/03/2015 [facility] [facility]* INFLUENZA, HIGH-DOSE, QUADRIVALEN* 07/11/2023 [place] [facility] 07/06/2022 [place] [facility] INFLUENZA, INJECTABLE, QUADRIVALE* 06/24/2021 [place]* 07/10/2020 [facility]* 08/06/2014 [place] [facility] INFLUENZA, SEASONAL, INJECTABLE [...] pr* [place] [facility]* 08/27/2008 [place] [facility]* NOVEL [id number], ALL FORM* 11/05/2009 [place]* <C> PNEUMOCOCCAL CONJUGATE PCV 13 01/08/2017 [facility] [facility] 01/02/2016 [facility]* <C> PNEUMOCOCCAL POLYSACCHARIDE PPV23 09/26/2008 [place] [facility] 09/09/2008 [facility] [facility] PNEUMOCOCCAL, UNSPECIFIED FORMULA* No Site TD (ADULT), 2 LF TETANUS TOXOID,* 09/26/2006 [place] [facility] 09/09/2006 [place] [facility] TD(ADULT) UNSPECIFIED FORMULATION No Site TDAP 05/15/2014 [place]* <C> ZOSTER LIVE 11/05/2009 [place]* <C> 10/10/2009 [facility] [facility] ZOSTER RECOMBINANT 2 04/16/2019 [facility]* 1 02/07/2019 [facility]* <C> See the Detailed Immunizations Health Summary Component[DIM] for Comments Labs: pending /zander/ GERRY FELICIANO PHYSICIAN Signed: 08/09/2023 09:38 GERRY FELICIANO OC
--- OUTSIDE RECORDS SUMMARY | 2024-06-19 13:38 | XMS_ITS | Encounter Summary ---
Author Name [facility] [place] Organization [place] Address [address] [place] [address] Care Team Providers Care Emergency Physician Name Role Phone GERRY FELICIANO Primary Care [...] Name Patient's Relationship to Policy Dia HUMANA [facility] ([facility]) MEDICARE ADVANTAGE MCR ([facility]) Oct 10, 2021 [id number] KLEPPERIC H,ARAMIS PATIENT HUMANA [facility] ([facility]) MEDICARE [facility] ([facility]) Oct 10, 2017 [id number] KLEPPERIC H,ARAMIS PATIENT HUMANA [facility] ([facility]) MEDICARE [facility] ([facility]) Oct 10, 2017 [id number] 05 KLEPPERIC H,ARAMIS PATIENT MEDICA [facility] ([facility]) MEDICARE ADVANTAGE M[facility] ([facility]) Oct 10, 2022 [id number] [phone] KLEPPERIC H,ARAMIS PATIENT Selected Encounter This section [...] and vision w abnormal findings MAXIMILIANO [facility] Lab Results: +/- 30 days [...] Range Comment Aug 09, 2023 09:36 AM [place] [employer] COMPREHENSIVE METABOLIC PANEL+MG Specimen Type: PLASMA No comment entered. Ordering Provider: KATHRYN FELICIANO Report Released Date/Time: Aug 09, 2023 09:29 AM Reporting Lab: [facility] [id number] Performing Lab: [facility] [id number] CREATININE 0.8 mg/dL 0.7-1.2 UREA NITROGEN 16 [...] Aug 09, 2023 09:29 AM Reporting Lab: [facility] [phone] Performing Lab: [facility] [phone] WBC 5.68 10*3/uL 4.0-11.0 RBC 4.63 10*6/uL [...] 26, 2021 06:49 PM VA-TOBACCO FORMER USER [facility] Tobacco Use History This section includes a history of the smoking, or tobacco-related health factors, that were collected on or before the date of the Encounter. The data comes from the [place] facility where the Encounter took place. Date/Time Smoking Status/Tobacco Use Comment F acility February 26, 2021 06:51 AM VA-TOBACCO NEVER USED [facility] Oct 20, 2015 03:17 PM INPT NO TOBACCO USE IN LAST 30 D AYS [facility] May 15, 2014 01:37 PM FORMER TOBACCO USER 7Y OR GREATE R [facility] Sep 09, 2008 10:33 AM LIFETIME NON-TOBACCO USER [facility] Advance Directives: All historical and [...] [facility] Oct 20, 2015 CLINICAL WARNING [facility] Encounter Notes: All associated encounter notes This section contains the clinical notes associated to the Encounter. Date/Time Encounter Note(s) Provider Source Aug 12, 2023 12:51 PM TELEHEALTH NOTE: LOCAL TITLE: EYE TECS REWORKER STANDARD TITLE: TELEHEALTH NOTE DATE OF NOTE: AUG 12, 2023@12:51 ENTRY DATE: AUG 12, 2023@12:51:05 AUTHOR: MAXIMILIANO SHAW COSIGNER: URGENCY: STATUS: COMPLETED [facility] (TECS) Manager Strategic Note ARAMIS VALDEZ [id number] Telehealth Consent and Patient Identification Verification: Verified patient identity with 2 separate identifiers prior to the beginning of the visit: Yes Patient was informed that their information and images will be uploaded securely to the [place] computer system and sent to be remotely interpreted by an eye provider. Recommendations/findings will be conveyed to them via phone call, video chat, and/or letter. Yes Patient verbalized understanding and agreed to participate in the [facility] telemedicine eye exam today. Yes [facility] Visit Type: Ocular Disease Monitoring COMPREHENSIVE SCREEN: HISTORY: Chief Complaint: 1 year TECS follow up. reports no vision changes. It's fairly good yet. Denies flashes/floaters/double vision. Denies ocular discomfort, tearing. History of Present Illness: dry eyes OU. cataract OU. AAMD OU. Last Eye Exam: Less than 1 year ago Location of [facility] eye [facility] Type of eye exam: TECS TECS HISTORY & REVIEW OF SYSTEMS No pain, decreased vision, sudden change in flashes or floaters, or sudden onset double vision. DIABETES HISTORY: The patient does NOT have diabetes EYE DISEASE(S) HISTORY: Tecs Manager Strategic 08/11/2022 [facility] EYE DX-CATARACTS 07/01/2022 VA-TECS EYE [...] x 174 OS: +2.50 +1.75 x 003 is happy with current eyeglass style Current [...] ORDERS: Patient communication preferences Best Contact Number: [phone] Voicemail set up: Yes Preferred Contact Method:* Patient prefers to be called with results regardless of exam findings Appendix (abbreviations): AC (Anterior Chamber); AREDS (Age Related Eye Disease Study); ARX (Auto Refraction); BID (Two Times Daily); C:D (Cup-to-Disc); CIC (Care In The Community); FRONT OFFICE REPRESENTATIVE (Cyclophotocoagulation); CSME (Clinically Significant Macular Edema); DFE [...] Clinic); scVA (Visual Acuity Without Correction/Glasses); ARMEN (Luxembourgish Interactive Threshold Algorithm); TID (Three Times Daily); UV (Ultraviolet); VA (Visual Acuity); WRx (Prescription glasses currently worn); WRx VA (Visual Acuity With Prescription Glasses); YAG (Yttrium Aluminum [place]) /zander/ MAXIMILIANO SHAW [facility] REWORKER OPHTHALMOLOGY Signed: 08/12/2023 13:22 MAXIMILIANO SHAW [facility]
--- OUTSIDE RECORDS SUMMARY | 2024-06-19 13:38 | XMS_ITS | Continuity of Care Document ---
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 It does not include entries that were removed or entered in error. 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 [facility] Hyperlipidemia (SNOMED CT 57735330) Active Condition [facility] Hypertension Active Condition [facility] Impacted cerumen Active Condition [facility] Indigestion Active Condition [facility] Knee pain Active Condition [facility] Neck pain Active Condition [facility] 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) [facility] Reflux Active Condition [facility] Supraventricular tachycardia Active Condition [facility] Tinnitus * (ICD-9-CM 388.30) Active Condition [facility] Diagnosis: ICD-10-CM Z01.01 Encounter for exam of eyes and vision w abnormal findings Active Diagnosis [facility] Diagnosis: ICD-10-CM Z23 Encounter for immunization Active Diagnosis [facility] Diagnosis: ICD-10-CM Z00.8 Encounter for other general examination Active Diagnosis [facility] Medications Combined list of outpatient medications from Department of [facility] and [facility] facilities.Medications provided include 1) outpatient medications from the last 15 months, and 2) patient-reported medications. Medication Details Route Status Patient Instructions Prescription Expires Prescription Number Last Dispense Date Ordering Provider Order Date Order Qty Source ASPIRIN 81MG TAB,EC ASPIRIN 81MG TAB,EC Non-VA TAKE ONE TABLET BY MOUTH Aug 09, 2022 Non-VA Document ed by: GERRY FELICIANO Document ed at: [facility] ORAL ACTIVE GERRY FELICIANO 2021 [facility] ATORVASTATI N CA 80MG TAB ATORVAST ATIN CA 80MG TAB Disconti nued TAKE ONE-HALF TABLET BY MOUTH EVERY DAY Aug 09, 2023 15 Aug 09, 2024 [id number] Aug 14, 2023 [facility] ORAL DISCONT INUED 08/09/2024 [id number] GERRY FELICIANO 2022 15 [facility] ATORVASTATI N CA 80MG TAB ATORVAST ATIN CA 80MG TAB Disconti nued TAKE ONE-HALF TABLET BY MOUTH EVERY DAY Aug 09, 2022 15 Aug 10, 2023 [id number] Jul 25, 2023 [facility] ORAL DISCONT INUED 08/10/2023 [id number] GERRY FELICIANO 2021 15 [facility] METOPROLOL TARTRATE 50MG TAB METOPROL OL TARTRATE 50MG TAB TAKE ONE TABLET BY MOUTH TWICE A DAY FOR BLOOD PRESSURE AND HEART RHYTHM May 24, 2023 180 May 24, 2024 [id number] C Nov 10, 2023 [facility] ORAL 05/24/2024 [id number] GERRY FELICIANO 2022 180 [facility] ROSUVASTATI N CA 40MG TAB ROSUVAST ATIN CA 40MG TAB Active TAKE ONE TABLET BY MOUTH AT BEDTIME FOR CHOLESTE ROL FOR CHOLESTE ROL Aug 24, 2023 90 Aug 24, 2024 [id number] Nov 14, 2023 [facility] ORAL ACTIVE 08/24/2024 [id number] GERRY FELICIANO 2022 90 [facility] Immunizations Combined list of available immunizations from the Department of Defense and Veterans Affairs facilities. Immunization Series Date Given Administered By Site Reaction Lot Number CVX Code Drug Nurse Unit Manager Status Comments Source COVID-19 (Charlie App), MRNA, LNP-S, PF, AMANDA-SUCROSE, 30 MCG/0.3 ML (AGES 12+ YEARS) 1 2022 NAE RIVERA LEFT DELTO ID [id number] 309 complet ed [facility] INFLUENZA, HIGH-DOSE, QUADRIVALENT 2022 197 complet ed [facility] COVID-19 (Charlie App), MRNA, LNP-S, BIVALENT, PF, 30 MCG/0.3 ML DOSE 2021 300 complet ed [facility] INFLUENZA, HIGH-DOSE, QUADRIVALENT 2021 197 complet ed [facility] INFLUENZA, UNSPECIFIED FORMULATION 2021 88 complet ed [facility] COVID-19 (Charlie App), MRNA, LNP-S, PF, 30 MCG/0.3 ML DOSE 3 2020 208 complet ed PFR; [id number]; 1 [facility] INFLUENZA, INJECTABLE, QUADRIVALENT, PRESERVATIVE FREE 2020 150 complet ed [facility] COVID-19 (Charlie App), MRNA, LNP-S, PF, 30 MCG/0.3 ML DOSE 2 2020 208 complet ed PFR; [id number]; 1 [facility] COVID-19 (Charlie App), MRNA, LNP-S, PF, 30 MCG/0.3 ML DOSE 1 2020 208 complet ed PFR; [id number]; 1 [facility] INFLUENZA, INJECTABLE, QUADRIVALENT, PRESERVATIVE FREE 2019 150 complet ed [facility] INFLUENZA, SEASONAL, INJECTABLE 2018 141 complet ed [facility] INFLUENZA, TRIVALENT, ADJUVANTED 2018 168 complet ed [facility] ZOSTER RECOMBINANT 2 2018 187 complet ed [facility] ZOSTER RECOMBINANT 1 2018 187 complet ed [facility] INFLUENZA, HIGH DOSE SEASONAL 2017 135 complet ed [facility] INFLUENZA, TRIVALENT, ADJUVANTED 2017 168 complet ed [facility] INFLUENZA, HIGH DOSE SEASONAL 2016 135 complet ed [facility] PNEUMOCOCCAL CONJUGATE PCV 13 2016 133 complet ed [facility] INFLUENZA, HIGH DOSE SEASONAL 2015 135 complet ed [facility] PNEUMOCOCCAL CONJUGATE PCV 13 2015 133 complet ed Mnmichel Lot [id number] Exp date 02/23 [facility] INFLUENZA, HIGH DOSE SEASONAL 2014 135 complet ed [facility] INFLUENZA, HIGH DOSE SEASONAL 2014 135 complet ed [facility] INFLUENZA, INJECTABLE, QUADRIVALENT, PRESERVATIVE FREE 2013 150 complet ed [facility] INFLUENZA, SEASONAL, INJECTABLE 2013 141 complet ed [facility] TDAP 2013 115 complet ed boostrix, [id number], 09/21/16 [facility] INFLUENZA, SEASONAL, INJECTABLE 2012 141 complet ed [facility] INFLUENZA, UNSPECIFIED FORMULATION 2012 88 complet ed [facility] INFLUENZA, SEASONAL, INJECTABLE 2011 141 complet ed [facility] INFLUENZA, UNSPECIFIED FORMULATION 2011 88 complet ed [facility] INFLUENZA, SEASONAL, INJECTABLE 2009 141 complet ed [facility] INFLUENZA, UNSPECIFIED FORMULATION 2009 88 complet ed [facility] NOVEL INFLUENZA-H1N 1-09, ALL FORMULATIONS 2009 128 complet ed [employer] [facility] ZOSTER LIVE 2009 121 complet ed [employer]. ,inc. [id number] [facility] ZOSTER LIVE 2009 121 complet ed [facility] INFLUENZA, UNSPECIFIED FORMULATION 2008 88 complet ed [facility] INFLUENZA, SEASONAL, INJECTABLE 2008 141 complet ed [facility] PNEUMOCOCCAL POLYSACCHARID E PPV23 2007 33 complet ed [facility] PNEUMOCOCCAL POLYSACCHARID E PPV23 2007 33 complet ed [facility] PNEUMOCOCCAL, UNSPECIFIED FORMULATION 2007 109 complet ed [facility] INFLUENZA, UNSPECIFIED FORMULATION 2007 88 complet ed [facility] INFLUENZA, SEASONAL, INJECTABLE 2007 141 complet ed [facility] INFLUENZA, SEASONAL, INJECTABLE 2006 141 complet ed [facility] INFLUENZA, SEASONAL, INJECTABLE 2005 141 complet [facility] TD (ADULT), 2 LF TETANUS TOXOID, PRESERVATIVE FREE, ADSORBED 2005 09 complet ed [facility] TD (ADULT), 2 LF TETANUS TOXOID, PRESERVATIVE FREE, ADSORBED 2005 09 complet ed [facility] INFLUENZA, SEASONAL, INJECTABLE 2004 141 complet ed [facility] TD(ADULT) UNSPECIFIED FORMULATION 2004 139 complet [facility] INFLUENZA, SEASONAL, INJECTABLE 2002 141 complet [facility] Results Combined list of recent chemistry, [...] Aug 09, 2023 09:29 AM Reporting Lab: [facility] [address] Performing Lab: [facility] [address] [facility] CBC & DIFF ERYTHROCYTE S [#/VOLUME] IN BLOOD BY AUTOMATED COUNT 4.63 10*6/u L 4.6 - 6.2 08/09 Specimen Type: BLOOD Comment: Automated Differentia l Performed Ordering Provider: NADIR FELICIANO Report Released Date/Time: Aug 09, 2023 09:29 AM Reporting Lab: [facility] [address] Performing Lab: [facility] [address] [facility] CBC & DIFF HEMOGLOBIN [MASS/VOLUM E] IN BLOOD 15.5 g/dL 13.5 - 17.9 08/09 Specimen Type: BLOOD Comment: Automated Differentia l Performed Ordering Provider: NADIR FELICIANO Report Released Date/Time: Aug 09, 2023 09:29 AM Reporting Lab: [facility] [address] Performing Lab: [facility] [address] [facility] CBC & DIFF HEMATOCRIT [VOLUME FRACTION] OF BLOOD BY AUTOMATED COUNT 45.3 41 - 54 08/09 Specimen Type: BLOOD Comment: Automated Differentia l Performed Ordering Provider: NADIR FELICIANO Report Released Date/Time: Aug 09, 2023 09:29 AM Reporting Lab: [facility] [address] Performing Lab: [facility] [address] [facility] CBC & DIFF MCV [ENTITIC VOLUME] BY AUTOMATED COUNT 97.8 fL 80 - 100 08/09 Specimen Type: BLOOD Comment: Automated Differentia l Performed Ordering Provider: NADIR FELICIANO Report Released Date/Time: Aug 09, 2023 09:29 AM Reporting Lab: [facility] [address] Performing Lab: [facility] [address] [facility] CBC & DIFF MCH [ENTITIC MASS] BY AUTOMATED COUNT 33.5 pg 27 - 33 08/09 H Specimen Type: BLOOD Comment: Automated Differentia l Performed Ordering Provider: NADIR FELICIANO Report Released Date/Time: Aug 09, 2023 09:29 AM Reporting Lab: [facility] [address] Performing Lab: [facility] [address] [facility] CBC & DIFF MCHC [MASS/VOLUM E] BY AUTOMATED COUNT 34.2 g/dL 32.0 - 37.5 08/09 Specimen Type: BLOOD Comment: Automated Differentia l Performed Ordering Provider: NADIR FELICIANO Report Released Date/Time: Aug 09, 2023 09:29 AM Reporting Lab: [facility] [address] Performing Lab: [facility] [address] [facility] CBC & DIFF PLATELETS [#/VOLUME] IN BLOOD BY AUTOMATED COUNT 191 10*3/u L 150 - 400 08/09 Specimen Type: BLOOD Comment: Automated Differentia l Performed Ordering Provider: NADIR FELICIANO Report Released Date/Time: Aug 09, 2023 09:29 AM Reporting Lab: [facility] [address] Performing Lab: [facility] [address] [facility] CBC & DIFF PLATELET MEAN VOLUME [ENTITIC VOLUME] IN BLOOD BY AUTOMATED COUNT 9.4 fL 7.4 - 10.4 08/09 Specimen Type: BLOOD Comment: Automated Differentia l Performed Ordering Provider: NADIR FELICIANO Report Released Date/Time: Aug 09, 2023 09:29 AM Reporting Lab: [facility] [address] Performing Lab: [facility] [address] [facility] CBC & DIFF NEUTROPHILS /100 LEUKOCYTES IN BLOOD BY MANUAL COUNT 62.9 40.0 - 80.0 08/09 Specimen Type: BLOOD Comment: Automated Differentia l Performed Ordering Provider: NADIR FELICIANO Report Released Date/Time: Aug 09, 2023 09:29 AM Reporting Lab: [facility] [address] Performing Lab: [facility] [address] [facility] CBC & DIFF LYMPHOCYTES /100 LEUKOCYTES IN BLOOD BY MANUAL COUNT 27.6 15.0 - 45.0 08/09 Specimen Type: BLOOD Comment: Automated Differentia l Performed Ordering Provider: NADIR FELICIANO Report Released Date/Time: Aug 09, 2023 09:29 AM Reporting Lab: [facility] [address] Performing Lab: [facility] [address] [facility] CBC & DIFF MONOCYTES/1 00 LEUKOCYTES IN BLOOD BY AUTOMATED COUNT 7.4 2.0 - 12.0 08/09 Specimen Type: BLOOD Comment: Automated Differentia l Performed Ordering Provider: NADIR FELICIANO Report Released Date/Time: Aug 09, 2023 09:29 AM Reporting Lab: [facility] [address] Performing Lab: [facility] [address] [facility] CBC & DIFF EOSINOPHILS /100 LEUKOCYTES IN BLOOD BY AUTOMATED COUNT 0.7 0.0 - 6.0 08/09 Specimen Type: BLOOD Comment: Automated Differentia l Performed Ordering Provider: NADIR FELICIANO Report Released Date/Time: Aug 09, 2023 09:29 AM Reporting Lab: [facility] [address] Performing Lab: [facility] [address] [facility] CBC & DIFF BASOPHILS/1 00 LEUKOCYTES IN BLOOD BY MANUAL COUNT 0.7 0.0 - 2.0 08/09 Specimen Type: BLOOD Comment: Automated Differentia l Performed Ordering Provider: NADIR FELICIANO Report Released Date/Time: Aug 09, 2023 09:29 AM Reporting Lab: [facility] [address] Performing Lab: [facility] [address] [facility] CBC & DIFF ERYTHROCYTE DISTRIBUTIO N WIDTH [RATIO] BY AUTOMATED COUNT 12.5 11.5 - 14.5 08/09 Specimen Type: BLOOD Comment: Automated Differentia l Performed Ordering Provider: NADIR FELICIANO Report Released Date/Time: Aug 09, 2023 09:29 AM Reporting Lab: [facility] [address] Performing Lab: [facility] [address] [facility] CBC & DIFF LYMPHOCYTES [#/VOLUME] IN BLOOD BY AUTOMATED COUNT 1.57 10*3/u L 1.0 - 4.0 08/09 Specimen Type: BLOOD Comment: Automated Differentia l Performed Ordering Provider: NADIR FELICIANO Report Released Date/Time: Aug 09, 2023 09:29 AM Reporting Lab: [facility] [address] Performing Lab: [facility] [address] [facility] CBC & DIFF MONOCYTES [#/VOLUME] IN BLOOD BY AUTOMATED COUNT 0.42 10*3/u L 0.1 - 1.0 08/09 Specimen Type: BLOOD Comment: Automated Differentia l Performed Ordering Provider: NADIR FELICIANO Report Released Date/Time: Aug 09, 2023 09:29 AM Reporting Lab: [facility] [address] Performing Lab: [facility] [address] [facility] CBC & DIFF NEUTROPHILS [#/VOLUME] IN BLOOD BY AUTOMATED COUNT 3.57 10*3/u L 2.0 - 7.7 08/09 Specimen Type: BLOOD Comment: Automated Differentia l Performed Ordering Provider: NADIR FELICIANO Report Released Date/Time: Aug 09, 2023 09:29 AM Reporting Lab: [facility] [address] Performing Lab: [facility] [address] [facility] CBC & DIFF EOSINOPHILS [#/VOLUME] IN BLOOD BY AUTOMATED COUNT 0.04 10*3/u L 0 - 0.5 08/09 Specimen Type: BLOOD Comment: Automated Differentia l Performed Ordering Provider: NADIR FELICIANO Report Released Date/Time: Aug 09, 2023 09:29 AM Reporting Lab: [facility] [address] Performing Lab: [facility] [address] [facility] CBC & DIFF BASOPHILS [#/VOLUME] IN BLOOD BY AUTOMATED COUNT 0.04 10*3/u L 0 - 0.2 08/09 Specimen Type: BLOOD Comment: Automated Differentia l Performed Ordering Provider: NADIR FELICIANO Report Released Date/Time: Aug 09, 2023 09:29 AM Reporting Lab: [facility] [address] Performing Lab: [facility] [address] [facility] CBC & DIFF IG(META,MYE LO,PRO) 0.7 08/09 Specimen Type: BLOOD Comment: Automated Differentia l Performed Ordering Provider: NADIR FELICIANO Report Released Date/Time: Aug 09, 2023 09:29 AM Reporting Lab: [facility] [address] Performing Lab: [facility] [address] [facility] CBC & DIFF IMMATURE GRANULOCYTE S [PRESENCE] IN BLOOD BY AUTOMATED COUNT 0.04 10*3/u L 0 - 0.1 10/31 /2023 Specimen Type: BLOOD Comment: Automated Differentia l Performed Ordering Provider: NADIR FELICIANO Report Released Date/Time: Aug 09, 2023 09:29 AM Reporting Lab: [facility] [address] Performing Lab: [facility] [address] [facility] COMPREHEN SIVE METABOLIC PANEL+MG CREATININE [MASS/VOLUM E] IN SERUM OR PLASMA 0.8 mg/dL 0.7 - 1.2 08/09 Specimen Type: PLASMA No comment entered. Ordering Provider: NADIR FELICIANO Report Released Date/Time: Aug 09, 2023 09:29 AM Reporting Lab: [facility] [address] Performing Lab: [facility] [address] [facility] COMPREHEN SIVE METABOLIC PANEL+MG UREA NITROGEN [MASS/VOLUM E] IN SERUM OR PLASMA 16 mg/dL 8 - 26 08/09 Specimen Type: PLASMA No comment entered. Ordering Provider: NADIR FELICIANO Report Released Date/Time: Aug 09, 2023 09:29 AM Reporting Lab: [facility] [address] Performing Lab: [facility] [address] [facility] COMPREHEN SIVE METABOLIC PANEL+MG GLUCOSE [MASS/VOLUM E] IN SERUM OR PLASMA 136 mg/dL 70 - 100 08/09 H Specimen Type: PLASMA No comment entered. Ordering Provider: NADIR FELICIANO Report Released Date/Time: Aug 09, 2023 09:29 AM Reporting Lab: [facility] [address] Performing Lab: [facility] [address] [facility] COMPREHEN SIVE METABOLIC PANEL+MG SODIUM [MOLES/VOLU ME] IN SERUM OR PLASMA 140 mmol/L 136 - 145 08/09 Specimen Type: PLASMA No comment entered. Ordering Provider: NADIR FELICIANO Report Released Date/Time: Aug 09, 2023 09:29 AM Reporting Lab: [facility] [address] Performing Lab: [facility] [address] [facility] COMPREHEN SIVE METABOLIC PANEL+MG POTASSIUM [MOLES/VOLU ME] IN SERUM OR PLASMA 4.2 mmol/L 3.5 - 5.1 08/09 Specimen Type: PLASMA No comment entered. Ordering Provider: NADIR FELICIANO Report Released Date/Time: Aug 09, 2023 09:29 AM Reporting Lab: [facility] [address] Performing Lab: [facility] [address] [facility] COMPREHEN SIVE METABOLIC PANEL+MG CHLORIDE [MOLES/VOLU ME] IN SERUM OR PLASMA 108 mmol/L 98 - 107 08/09 H Specimen Type: PLASMA No comment entered. Ordering Provider: NADIR FELICIANO Report Released Date/Time: Aug 09, 2023 09:29 AM Reporting Lab: [facility] [address] Performing Lab: [facility] [address] [facility] COMPREHEN SIVE METABOLIC PANEL+MG CARBON DIOXIDE, TOTAL [MOLES/VOLU ME] IN SERUM OR PLASMA 24 mmol/L 22 - 29 08/09 Specimen Type: PLASMA No comment entered. Ordering Provider: NADIR FELICIANO Report Released Date/Time: Aug 09, 2023 09:29 AM Reporting Lab: [facility] [address] Performing Lab: [facility] [address] [facility] COMPREHEN SIVE METABOLIC PANEL+MG CALCIUM [MASS/VOLUM E] IN SERUM OR PLASMA 9.1 mg/dL 8.4 - 10.2 08/09 Specimen Type: PLASMA No comment entered. Ordering Provider: NADIR FELICIANO Report Released Date/Time: Aug 09, 2023 09:29 AM Reporting Lab: [facility] [address] Performing Lab: [facility] [address] [facility] COMPREHEN SIVE METABOLIC PANEL+MG PROTEIN [MASS/VOLUM E] IN SERUM OR PLASMA 6.4 g/dL 6.0 - 8.3 08/09 Specimen Type: PLASMA No comment entered. Ordering Provider: NADIR FELICIANO Report Released Date/Time: Aug 09, 2023 09:29 AM Reporting Lab: [facility] [address] Performing Lab: [facility] [address] [facility] COMPREHEN SIVE METABOLIC PANEL+MG ALBUMIN [MASS/VOLUM E] IN SERUM OR PLASMA 3.9 g/dL 3.5 - 5.2 08/09 Specimen Type: PLASMA No comment entered. Ordering Provider: NADIR FELICIANO Report Released Date/Time: Aug 09, 2023 09:29 AM Reporting Lab: [facility] [address] Performing Lab: [facility] [address] [facility] COMPREHEN SIVE METABOLIC PANEL+MG BILIRUBIN.T OTAL [MASS/VOLUM E] IN SERUM OR PLASMA 0.9 mg/dL 0.2 - 1.2 08/09 Specimen Type: PLASMA No comment entered. Ordering Provider: NADIR FELICIANO Report Released Date/Time: Aug 09, 2023 09:29 AM Reporting Lab: [facility] [address] Performing Lab: [facility] [address] [facility] COMPREHEN SIVE METABOLIC PANEL+MG MAGNESIUM [MASS/VOLUM E] IN SERUM OR PLASMA 1.8 mg/dL 1.6 - 2.6 08/09 Specimen Type: PLASMA No comment entered. Ordering Provider: NADIR FELICIANO Report Released Date/Time: Aug 09, 2023 09:29 AM Reporting Lab: [facility] [address] Performing Lab: [facility] [address] [facility] COMPREHEN SIVE METABOLIC PANEL+MG ANION GAP IN SERUM OR PLASMA 8 mmol/L 5 - 15 08/09 Specimen Type: PLASMA No comment entered. Ordering Provider: NADIR FELICIANO Report Released Date/Time: Aug 09, 2023 09:29 AM Reporting Lab: [facility] [address] Performing Lab: [facility] [address] [facility] COMPREHEN SIVE METABOLIC PANEL+MG ALKALINE PHOSPHATASE [ENZYMATIC ACTIVITY/VO LUME] IN SERUM OR PLASMA 71 U/L 40 - 150 08/09 Specimen Type: PLASMA No comment entered. Ordering Provider: NADIR FELICIANO Report Released Date/Time: Aug 09, 2023 09:29 AM Reporting Lab: [facility] [address] Performing Lab: [facility] [address] [facility] COMPREHEN SIVE METABOLIC PANEL+MG ALANINE AMINOTRANSF ERASE [ENZYMATIC ACTIVITY/VO LUME] IN SERUM OR PLASMA 20 U/L <55 - 55 08/09 Specimen Type: PLASMA No comment entered. Ordering Provider: NADIR FELICIANO Report Released Date/Time: Aug 09, 2023 09:29 AM Reporting Lab: [facility] [address] Performing Lab: [facility] [address] [facility] COMPREHEN SIVE METABOLIC PANEL+MG ASPARTATE AMINOTRANSF ERASE [ENZYMATIC ACTIVITY/VO LUME] IN SERUM OR PLASMA 23 U/L <34 - 34 08/09 Specimen Type: PLASMA No comment entered. Ordering Provider: NADIR FELICIANO Report Released Date/Time: Aug 09, 2023 09:29 AM Reporting Lab: [facility] [address] Performing Lab: [facility] [address] [facility] COMPREHEN SIVE METABOLIC PANEL+MG GLOMERULAR FILTRATION RATE/1.73 SQ M.PREDICTED [VOLUME RATE/AREA] IN SERUM, PLASMA OR BLOOD BY CREATININE- BASED FORMULA (CKD-EPI 2020) 88 60 08/09 Specimen Type: PLASMA No comment entered. Ordering Provider: NADIR FELICIANO Report Released Date/Time: Aug 09, 2023 09:29 AM Reporting Lab: [facility] [address] Performing Lab: [facility] [address] [facility] CBC & DIFF LEUKOCYTES [#/VOLUME] IN BLOOD BY AUTOMATED COUNT 5.06 10*3/u L 4.0 - 11.0 08/09 Specimen Type: BLOOD Comment: Automated Differentia l Performed Ordering Provider: NADIR FELICIANO Report Released Date/Time: Aug 09, 2022 10:15 AM Reporting Lab: [facility] [address] Performing Lab: [facility] [address] [facility] CBC & DIFF ERYTHROCYTE S [#/VOLUME] IN BLOOD BY AUTOMATED COUNT 4.76 10*6/u L 4.6 - 6.2 08/09 Specimen Type: BLOOD Comment: Automated Differentia l Performed Ordering Provider: NADIR FELICIANO Report Released Date/Time: Aug 09, 2022 10:15 AM Reporting Lab: [facility] [id number] Performing Lab: [facility] [address] [facility] CBC & DIFF HEMOGLOBIN [MASS/VOLUM E] IN BLOOD 15.8 g/dL 13.5 - 17.9 08/09 Specimen Type: BLOOD Comment: Automated Differentia l Performed Ordering Provider: NADIR FELICIANO Report Released Date/Time: Aug 09, 2022 10:15 AM Reporting Lab: [facility] [id number] Performing Lab: [facility] [address] [facility] CBC & DIFF HEMATOCRIT [VOLUME FRACTION] OF BLOOD BY AUTOMATED COUNT 46.2 41 - 54 08/09 Specimen Type: BLOOD Comment: Automated Differentia l Performed Ordering Provider: NADIR FELICIANO Report Released Date/Time: Aug 09, 2022 10:15 AM Reporting Lab: [facility] [phone] Performing Lab: [facility] [phone] [facility] CBC & DIFF MCV [ENTITIC VOLUME] BY AUTOMATED COUNT 97.1 fL 80 - 100 08/09 Specimen Type: BLOOD Comment: Automated Differentia l Performed Ordering Provider: NAIDR FELICIANO Report Released Date/Time: Aug 09, 2022 10:15 AM Reporting Lab: [facility] [address] Performing Lab: [facility] [address] [facility] CBC & DIFF MCH [ENTITIC MASS] BY AUTOMATED COUNT 33.2 pg 27 - 33 08/09 H Specimen Type: BLOOD Comment: Automated Differentia l Performed Ordering Provider: NADIR FELICIANO Report Released Date/Time: Aug 09, 2022 10:15 AM Reporting Lab: [facility] [address] Performing Lab: [facility] [address] [facility] CBC & DIFF MCHC [MASS/VOLUM E] BY AUTOMATED COUNT 34.2 g/dL 32.0 - 37.5 08/09 Specimen Type: BLOOD Comment: Automated Differentia l Performed Ordering Provider: NADIR FELICIANO Report Released Date/Time: Aug 09, 2022 10:15 AM Reporting Lab: [facility] [address] Performing Lab: [facility] [address] [facility] CBC & DIFF PLATELETS [#/VOLUME] IN BLOOD BY AUTOMATED COUNT 207 10*3/u L 150 - 400 08/09 Specimen Type: BLOOD Comment: Automated Differentia l Performed Ordering Provider: NADIR FELICIANO Report Released Date/Time: Aug 09, 2022 10:15 AM Reporting Lab: [facility] [address] Performing Lab: [facility] [address] [facility] CBC & DIFF PLATELET MEAN VOLUME [ENTITIC VOLUME] IN BLOOD BY AUTOMATED COUNT 9.5 fL 7.4 - 10.4 08/09 Specimen Type: BLOOD Comment: Automated Differentia l Performed Ordering Provider: NADIR FELICIANO Report Released Date/Time: Aug 09, 2022 10:15 AM Reporting Lab: [facility] [address] Performing Lab: [facility] [address] [facility] CBC & DIFF NEUTROPHILS /100 LEUKOCYTES IN BLOOD BY MANUAL COUNT 59.5 08/09 Specimen Type: BLOOD Comment: Automated Differentia l Performed Ordering Provider: NADIR FELICIANO Report Released Date/Time: Aug 09, 2022 10:15 AM Reporting Lab: [facility] [address] Performing Lab: [facility] [address] [facility] CBC & DIFF LYMPHOCYTES /100 LEUKOCYTES IN BLOOD BY MANUAL COUNT 29.6 08/09 Specimen Type: BLOOD Comment: Automated Differentia l Performed Ordering Provider: NADIR FELICIANO Report Released Date/Time: Aug 09, 2022 10:15 AM Reporting Lab: [facility] [address] Performing Lab: [facility] [address] [facility] CBC & DIFF MONOCYTES/1 00 LEUKOCYTES IN BLOOD BY AUTOMATED COUNT 8.9 08/09 Specimen Type: BLOOD Comment: Automated Differentia l Performed Ordering Provider: NADIR FELICIANO Report Released Date/Time: Aug 09, 2022 10:15 AM Reporting Lab: [facility] [address] Performing Lab: [facility] [address] [facility] CBC & DIFF EOSINOPHILS /100 LEUKOCYTES IN BLOOD BY AUTOMATED COUNT 1.0 08/09 Specimen Type: BLOOD Comment: Automated Differentia l Performed Ordering Provider: NADIR FELICIANO Report Released Date/Time: Aug 09, 2022 10:15 AM Reporting Lab: [facility] [address] Performing Lab: [facility] [address] [facility] CBC & DIFF BASOPHILS/1 00 LEUKOCYTES IN BLOOD BY MANUAL COUNT 0.8 08/09 Specimen Type: BLOOD Comment: Automated Differentia l Performed Ordering Provider: NADIR FELICIANO Report Released Date/Time: Aug 09, 2022 10:15 AM Reporting Lab: [facility] [address] Performing Lab: [facility] [address] [facility] CBC & DIFF ERYTHROCYTE DISTRIBUTIO N WIDTH [RATIO] BY AUTOMATED COUNT 12.5 11.5 - 14.5 08/09 Specimen Type: BLOOD Comment: Automated Differentia l Performed Ordering Provider: NADIR FELICIANO Report Released Date/Time: Aug 09, 2022 10:15 AM Reporting Lab: [facility] [address] Performing Lab: [facility] [address] [facility] CBC & DIFF LYMPHOCYTES [#/VOLUME] IN BLOOD BY AUTOMATED COUNT 1.50 10*3/u L 1.0 - 4.0 08/09 Specimen Type: BLOOD Comment: Automated Differentia l Performed Ordering Provider: NADIR FELICIANO Report Released Date/Time: Aug 09, 2022 10:15 AM Reporting Lab: [facility] [address] Performing Lab: [facility] [address] [facility] CBC & DIFF MONOCYTES [#/VOLUME] IN BLOOD BY AUTOMATED COUNT 0.45 10*3/u L 0.1 - 1.0 08/09 Specimen Type: BLOOD Comment: Automated Differentia l Performed Ordering Provider: NADIR FELICIANO Report Released Date/Time: Aug 09, 2022 10:15 AM Reporting Lab: [facility] [address] Performing Lab: [facility] [address] [facility] CBC & DIFF NEUTROPHILS [#/VOLUME] IN BLOOD BY AUTOMATED COUNT 3.01 10*3/u L 2.0 - 7.7 08/09 Specimen Type: BLOOD Comment: Automated Differentia l Performed Ordering Provider: NADIR FELICIANO Report Released Date/Time: Aug 09, 2022 10:15 AM Reporting Lab: [facility] [address] Performing Lab: [facility] [address] [facility] CBC & DIFF EOSINOPHILS [#/VOLUME] IN BLOOD BY AUTOMATED COUNT 0.05 10*3/u L 0 - 0.5 08/09 Specimen Type: BLOOD Comment: Automated Differentia l Performed Ordering Provider: NADIR FELICIANO Report Released Date/Time: Aug 09, 2022 10:15 AM Reporting Lab: [facility] [address] Performing Lab: [facility] [address] [facility] CBC & DIFF BASOPHILS [#/VOLUME] IN BLOOD BY AUTOMATED COUNT 0.04 10*3/u L 0 - 0.2 08/09 Specimen Type: BLOOD Comment: Automated Differentia l Performed Ordering Provider: NADIR FELICIANO Report Released Date/Time: Aug 09, 2022 10:15 AM Reporting Lab: [facility] [address] Performing Lab: [facility] [address] [facility] CBC & DIFF IG(META,MYE LO,PRO) 0.2 08/09 Specimen Type: BLOOD Comment: Automated Differentia l Performed Ordering Provider: NADIR FELICIANO Report Released Date/Time: Aug 09, 2022 10:15 AM Reporting Lab: [facility] [address] Performing Lab: [facility] [address] [facility] CBC & DIFF IMMATURE GRANULOCYTE S [PRESENCE] IN BLOOD BY AUTOMATED COUNT 0.01 10*3/u L 0 - 0.1 08/09 Specimen Type: BLOOD Comment: Automated Differentia l Performed Ordering Provider: NADIR FELICIANO Report Released Date/Time: Aug 09, 2022 10:15 AM Reporting Lab: [facility] [address] Performing Lab: [facility] [address] [facility] COMPREHEN SIVE METABOLIC PANEL+MG CREATININE [MASS/VOLUM E] IN SERUM OR PLASMA 0.8 mg/dL 0.7 - 1.2 08/09 Specimen Type: PLASMA No comment entered. Ordering Provider: NADIR FELICIANO Report Released Date/Time: Aug 09, 2022 10:15 AM Reporting Lab: [facility] [address] Performing Lab: [facility] [address] [facility] COMPREHEN SIVE METABOLIC PANEL+MG UREA NITROGEN [MASS/VOLUM E] IN SERUM OR PLASMA 14 mg/dL 8 - 26 08/09 Specimen Type: PLASMA No comment entered. Ordering Provider: NADIR FELICIANO Report Released Date/Time: Aug 09, 2022 10:15 AM Reporting Lab: [facility] [address] Performing Lab: [facility] [address] [facility] COMPREHEN SIVE METABOLIC PANEL+MG GLUCOSE [MASS/VOLUM E] IN SERUM OR PLASMA 106 mg/dL 70 - 100 08/09 H Specimen Type: PLASMA No comment entered. Ordering Provider: NADIR FELICIANO Report Released Date/Time: Aug 09, 2022 10:15 AM Reporting Lab: [facility] [address] Performing Lab: [facility] [address] [facility] COMPREHEN SIVE METABOLIC PANEL+MG SODIUM [MOLES/VOLU ME] IN SERUM OR PLASMA 139 mmol/L 136 - 145 08/09 Specimen Type: PLASMA No comment entered. Ordering Provider: NADIR FELICIANO Report Released Date/Time: Aug 09, 2022 10:15 AM Reporting Lab: [facility] [address] Performing Lab: [facility] [address] [facility] COMPREHEN SIVE METABOLIC PANEL+MG POTASSIUM [MOLES/VOLU ME] IN SERUM OR PLASMA 4.5 mmol/L 3.5 - 5.1 08/09 Specimen Type: PLASMA No comment entered. Ordering Provider: NADIR FELICIANO Report Released Date/Time: Aug 09, 2022 10:15 AM Reporting Lab: [facility] [address] Performing Lab: [facility] [address] [facility] COMPREHEN SIVE METABOLIC PANEL+MG CHLORIDE [MOLES/VOLU ME] IN SERUM OR PLASMA 106 mmol/L 98 - 107 08/09 Specimen Type: PLASMA No comment entered. Ordering Provider: NADIR FELICIANO Report Released Date/Time: Aug 09, 2022 10:15 AM Reporting Lab: [facility] [address] Performing Lab: [facility] [address] [facility] COMPREHEN SIVE METABOLIC PANEL+MG CARBON DIOXIDE, TOTAL [MOLES/VOLU ME] IN SERUM OR PLASMA 26 mmol/L 22 - 29 08/09 Specimen Type: PLASMA No comment entered. Ordering Provider: NADIR FELICIANO Report Released Date/Time: Aug 09, 2022 10:15 AM Reporting Lab: [facility] [address] Performing Lab: [facility] [address] [facility] COMPREHEN SIVE METABOLIC PANEL+MG CALCIUM [MASS/VOLUM E] IN SERUM OR PLASMA 9.1 mg/dL 8.4 - 10.2 08/09 Specimen Type: PLASMA No comment entered. Ordering Provider: NADIR FELICIANO Report Released Date/Time: Aug 09, 2022 10:15 AM Reporting Lab: [facility] [address] Performing Lab: [facility] [address] [facility] COMPREHEN SIVE METABOLIC PANEL+MG PROTEIN [MASS/VOLUM E] IN SERUM OR PLASMA 6.5 g/dL 6.0 - 8.3 08/09 Specimen Type: PLASMA No comment entered. Ordering Provider: NADIR FELICIANO Report Released Date/Time: Aug 09, 2022 10:15 AM Reporting Lab: [facility] [address] Performing Lab: [facility] [address] [facility] COMPREHEN SIVE METABOLIC PANEL+MG ALBUMIN [MASS/VOLUM E] IN SERUM OR PLASMA 3.8 g/dL 3.5 - 5.2 08/09 Specimen Type: PLASMA No comment entered. Ordering Provider: NADIR FELICIANO Report Released Date/Time: Aug 09, 2022 10:15 AM Reporting Lab: [facility] [address] Performing Lab: [facility] [address] [facility] COMPREHEN SIVE METABOLIC PANEL+MG BILIRUBIN.T OTAL [MASS/VOLUM E] IN SERUM OR PLASMA 0.6 mg/dL 0.2 - 1.2 08/09 Specimen Type: PLASMA No comment entered. Ordering Provider: NADIR FELICIANO Report Released Date/Time: Aug 09, 2022 10:15 AM Reporting Lab: [facility] [address] Performing Lab: [facility] [address] [facility] COMPREHEN SIVE METABOLIC PANEL+MG MAGNESIUM [MASS/VOLUM E] IN SERUM OR PLASMA 1.9 mg/dL 1.6 - 2.6 08/09 Specimen Type: PLASMA No comment entered. Ordering Provider: NADIR FELICIANO Report Released Date/Time: Aug 09, 2022 10:15 AM Reporting Lab: [facility] [address] Performing Lab: [facility] [address] [facility] COMPREHEN SIVE METABOLIC PANEL+MG ANION GAP IN SERUM OR PLASMA 7 mmol/L 5 - 15 08/09 Specimen Type: PLASMA No comment entered. Ordering Provider: NADIR FELICIANO Report Released Date/Time: Aug 09, 2022 10:15 AM Reporting Lab: [facility] [address] Performing Lab: [facility] [address] [facility] COMPREHEN SIVE METABOLIC PANEL+MG ALKALINE PHOSPHATASE [ENZYMATIC ACTIVITY/VO LUME] IN SERUM OR PLASMA 60 U/L 40 - 150 08/09 Specimen Type: PLASMA No comment entered. Ordering Provider: NADIR FELICIANO Report Released Date/Time: Aug 09, 2022 10:15 AM Reporting Lab: [facility] [address] Performing Lab: [facility] [address] [facility] COMPREHEN SIVE METABOLIC PANEL+MG ALANINE AMINOTRANSF ERASE [ENZYMATIC ACTIVITY/VO LUME] IN SERUM OR PLASMA 18 U/L <55 - 55 08/09 Specimen Type: PLASMA No comment entered. Ordering Provider: NADIR FELICIANO Report Released Date/Time: Aug 09, 2022 10:15 AM Reporting Lab: [facility] [address] Performing Lab: [facility] [address] [facility] COMPREHEN SIVE METABOLIC PANEL+MG ASPARTATE AMINOTRANSF ERASE [ENZYMATIC ACTIVITY/VO LUME] IN SERUM OR PLASMA 20 U/L <34 - 34 08/09 Specimen Type: PLASMA No comment entered. Ordering Provider: NADIR FELICIANO Report Released Date/Time: Aug 09, 2022 10:15 AM Reporting Lab: [facility] [address] Performing Lab: [facility] [address] [facility] COMPREHEN SIVE METABOLIC PANEL+MG GLOMERULAR FILTRATION RATE/1.73 SQ M.PREDICTED [VOLUME RATE/AREA] IN SERUM, PLASMA OR BLOOD BY CREATININE- BASED FORMULA (CKD-EPI) 88 60 08/09 Specimen Type: PLASMA No comment entered. Ordering Provider: NADIR FELICIANO Report Released Date/Time: Aug 09, 2022 10:15 AM Reporting Lab: [facility] [address] Performing Lab: [facility] [address] [facility] HEMOGLOBI N A1C HEMOGLOBIN A1C/HEMOGLO BIN.TOTAL [...] Aug 09, 2022 10:15 AM Reporting Lab: [facility] [address] Performing Lab: [facility] [address] [facility] TSH W/REFLEX TO FREE T4 THYROTROPIN [UNITS/VOLU ME] IN SERUM OR PLASMA 0.46 u[IU]/ mL 0.35 - 4.94 08/09 Specimen Type: PLASMA No comment entered. Ordering Provider: NADIR FELICIANO Report Released Date/Time: Aug 09, 2022 10:15 AM Reporting Lab: [facility] [address] Performing Lab: [facility] [address] [facility] Vital Signs Combined list of inpatient [...] DC Date Status Disposition Source JAEL IS [facility] Outpatient Encounter [id number] 07/11 [facility] OFFICE O/P EST MOD 30-39 MIN [id number] Diagnos is: ICD-10- CM Z00.8 Encount er for other general examina tion
BRADENEugene EBECCA L 08/09 [facility] IMG RTA DETCJ/MNTR DS STAFF [id number] Diagnos is: ICD-10- CM Z01.01 Encount er for exam of eyes and vision w abnorma l finding s
COLIN MAXIMILIANO J 08/12 [facility] IS [facility] ADMN SARSCOV2 VACC 1 DOSE [id number] Diagnos is: ICD-10- CM Z23 Encount er for immuniz ation<b r/> SAGATAW,CI NDY 08/12 [facility] Outpatient Encounter [id number] Diagnos is: ICD-10- CM Z01.01 Encount er for exam of eyes and vision w abnorma l finding s
CATERINA DUKES S 08/15 [facility] Outpatient Encounter [id number] 08/22 [facility] Outpatient Encounter [id number] 08/24 [facility] Outpatient Encounter [id number] 12/01 [facility] Outpatient Encounter [id number] 05/22 [facility] Social History Combined list of available smoking, tobacco, and other social history from [facility] and [facility] facilities. Social History Type Response Date Comment Sourc e Tobacco smoking status MTIS PR-TOBACCO NEVER USED 08/09/2023 [facility] History of tobacco use PR-TOBACCO FORMER USER 08/09/2022 [facility] History of tobacco use VA-TOBACCO FORMER USER 02/26/2021 [facility] History of tobacco use PR-TOBACCO NEVER USED 02/26/2021 [facility] History of tobacco use VA-TOBACCO FORMER USER 01/10/2019 [facility] History of tobacco use FORMER TOBACCO US ER 7Y OR GREATER 02/10/2018 [facility] History of tobacco use FORMER TOBACCO US ER 7Y OR GREATER 02/15/2017 [facility] History of tobacco use FORMER TOBACCO US ER 7Y OR GREATER 01/02/2016 [facility] History of tobacco use INPT NO TOBACCO U SE IN LAST 30 DAYS 10/20/2015 [facility] History of tobacco use FORMER TOBACCO US ER 7Y OR GREATER 02/17/2015 [facility] History of tobacco use FORMER TOBACCO US ER 7Y OR GREATER 05/15/2014 [facility] History of tobacco use 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 Additional future care activities may be listed in the Assessment and Plan section. Date/Time Care Activity Care Activity Detail Facili ty 07/24/2024 AMBULATORY - MEDICINE AMBULATORY - MEDICI [facility] 08/16/2024 AMBULATORY - SURGERY AMBULATORY - SURGERY [facility] Advance Directives List of completed, amended, or rescinded Advance Directives on record at [facility] facilities. An actual copy of the Directive is not included. Date Advance Directive Provider Source 05/16/2019 ADVANCE DIRECTIVE DISCUSSION [facility] 10/20/2015 CLINICAL WARNING [facility]
--- OUTSIDE RECORDS SUMMARY | 2024-06-19 13:38 | XMS_ITS | Referral Summary ---
Author Organization [facility] Address [address] [place] [address] Care Team Providers Care Short Haul Driver Name Role Phone Unavailable Primary Care Provider Unavailabl e Source Comments Patient records contain information from all sites at [facility]. For routine questions regarding patient records, call [phone] during business hours, M-F 8:00 AM - 5:00 PM Central Time. Record requests for emergency care only can be directed to [phone] at any time.[facility] Encounters Date Type Department Care Team Description 06/19/2024 12:22 PM CDT Hospital Encounter Department of Radiation Oncology in [address] [address] Sergio Foster M.D. Primary Malignant Neoplasm Of Prostate (HCC) 06/19/2024 11:06 AM CDT Hospital Encounter Department of Radiation Oncology in [address] [address] Sergio Foster M.D. Primary Malignant Neoplasm Of Prostate (HCC) (Primary Dx) 05/29/2024 4:00 PM CDT - 05/29/2024 4:31 PM CDT Hospital Encounter Department of Radiation Oncology in [address] [address] Sergio Foster M.D. Primary Malignant Neoplasm Of Prostate (HCC) (Primary Dx); Trochanteric Bursitis Left Hip 05/21/2024 9:12 AM CDT - 05/21/2024 2:11 PM CDT Hospital Encounter Department of Radiation Oncology in [address] [address] Sergio Foster M.D. Primary Malignant Neoplasm Of Prostate (HCC) (Primary Dx); Pain Hip Left 05/09/2024 10:05 AM CDT - 05/18/2024 2:17 PM CDT Hospital Encounter Department of Radiation Oncology in [place], [place] [address] [facility] [place] [address] Sergio Foster M.D. Primary Malignant Neoplasm Of Prostate (HCC) (Primary Dx) 05/16/2024 10:14 AM CDT - 05/16/2024 11:14 AM CDT Hospital Encounter Department of Laboratory Medicine in [place], [place] [address] [place] [address] Jesika Bragg P.A.-C., M.S. Primary Malignant Neoplasm Of Prostate (HCC) Discharge Disposition: Home or Self Care 05/16/2024 11:15 AM CDT - 05/16/2024 11:59 PM CDT Hospital Encounter Department of Radiology in [place] [address] [place] [address] Jesika Bragg P.A.-C., M.S. Primary Malignant Neoplasm [...] Smoking Tobacco: Former Cigarettes 0.3 10 1 800 - [phone] Pipe Smokeless Tobacco: Never Tobacco Cessation:Counseling Given: [...] CDT Appointment Department of Radiation Oncology in [place], [place] [address] [place] [id number] Sergio Foster M.D. [address] [place] [address] Procedures Procedure Name Priority Date/Time Associated Diagnosis [...] evidence for localized or metastatic prostate disease. Jseika Bragg P.A.-C., M.S. [facility] PROCEDU RES * Testosterone, Total by Mass Spectrometry, Serum (05/16/2024 10:34 AM CDT) [facility] Testosterone, Total by Mass Spectrometry, Serum 538 240 - 950 ng/dL 05/20/2024 3:07 PM CDT [facility] Comment: ----ADDITIONAL INFORMATION---- Testing performed by Liquid Chromatography-Tandem Mass Spectrometry (LC-MS/MS). This test was developed and its performance characteristics determined by [facility] in a manner consistent with CLIA requirements. This test has not been cleared or approved by the U.S. Food and Drug Administration. Blood (Blood, Venous) 05/16/2024 10:34 AM CDT 05/17/2024 8:56 AM CDT Jesika Bragg P.A.-C., M.S. LAB BLOOD NON ADD-ON [facility] [address] [place] [address] [facility] [address] [place] [address] [place] [id number] * (ABNORMAL) PSA (Prostate-Specific Antigen), Diagnostic (05/16/2024 10:34 AM CDT) Prostate-Specific Ag 8.3(H) <=7.2 ng/mL 05/16/2024 11:36 AM CDT [facility] Comment: ----ADDITIONAL INFORMATION---- The testing method is an electrochemiluminescence assay manufactured by [employer] and performed on the Modular or Marissa system. Values obtained with different assay methods or kits may be different and cannot be used interchangeably. Test results cannot be interpreted as absolute evidence for the presence or absence of malignant disease. Blood (Blood, Venous) 05/16/2024 10:34 AM CDT 05/16/2024 11:02 AM CDT Jesika Bragg P.A.-C., M.S. LAB BLOOD ADD- ON [facility] [address] [place] [address], [facility] [address] [place] [address] from Last 3 Months
--- OUTSIDE RECORDS SUMMARY | 2024-06-19 13:38 | XMS_ITS | Encounter Summary ---
Author Name [facility] [place] [facility] [place] [facility] Address [address] [place] [address] Care Team Providers Care Decatizer Name Role Phone GERRY FELICIANO Primary Care Provider Unavailmally [facility] Insurance Providers: All historical and current Section [...] Name Patient's Relationship to Policy Dia HUMANA [facility] (WNR) MEDICARE [facility] ([facility]) Oct 10, 2021 [id number] KLERUDY JAVED PATIENT HUMANA MCR (WNR) MEDICARE ADVANTAGE [facility] ([facility]) Oct 10, 2017 [id number] KLEPPRUDY THOMPSON PATIENT HUMANA MCR (WNR) MEDICARE [facility] ([facility]) Oct 10, 2017 [id number] [phone] KLEPPRUDY THOMPSON PATIENT MEDICA MCR ([facility]) MEDICARE ADVANTAGE MCR ([facility]) Oct 10, 2022 [id number] BRIANDA Veloz,RUDY PATIENT Selected Encounter This section includes the information on record at [place] for the Encounter. Date/Time Encounter Type Encounter Description Reason Pro vider Source May 22, 2024 01:24 PM Outpatient Encounter PRIMARY CARE/MEDICINE IHE Encounter Template Text not used by [place] Plan of Treatment: Future Appointments (+ 6 months) and Future Tests (+/- 45 days) The Plan of Treatment section includes future care activities for the [facility] [place] [facility] This section includes future appointments and future orders which are active, pending or scheduled. Future Appointments This section includes appointments that were scheduled to occur 6 months from the date of the Encounter, up to a maximum of 20 appointments. The data comes from all [place] treatment facilities. Appointment Date/Time Appointment Type Appointme nt Facility Name Jul 24, 2024 10:00 AM AMBULATORY - MEDICINE [facility] Aug 16, 2024 09:40 AM AMBULATORY - SURGERY [facility] Social History: Smoking Status (Most current) and Tobacco Use (All prior to encounter date) This section includes the most current, and the historical, smoking and tobacco- related health factors from the [place] facility where the Encounter took place. Current Smoking Status This section includes the most current smoking, or tobacco-related health factor, from the [place] facility where the Encounter took place. Date/Time Current Smoking Status Comment Facil ity February 26, 2021 06:49 PM VA-TOBACCO FORMER USER [facility] Tobacco Use History This section includes a history of the smoking, or tobacco-related health factors, that were collected on or before the date of the Encounter. The data comes from the [place] facility where the Encounter took place. Date/Time Smoking Status/Tobacco Use Comment F acelizabeth February 26, 2021 06:51 AM VA-TOBACCO NEVER USED [facility] Oct 20, 2015 03:17 PM INPT NO TOBACCO USE IN LAST 30 D AYS [facility] May 15, 2014 01:37 PM FORMER TOBACCO USER 7Y OR GREATE R [facility] Sep 09, 2008 10:33 AM LIFETIME NON-TOBACCO USER [facility] Advance Directives: All historical and current Section Date Range: From patient's date of to the date document was created. This section includes ALL of a patient's completed or amended [place] Advance and Rescinded Directives. The entries below indicate that a directive exists for the patient, but an actual copy is not included with this document. The data comes from all [facility]. Date Advance Directives Provider Source May 16, 2019 ADVANCE DIRECTIVE NOLAN MARTINEZ May 16, 2019 ADVANCE DIRECTIVE DISCUSSION DAMIAN MARTINEZ CBLUIS FERNANDO Oct 20, 2015 CLINICAL WARNING [facility]GOLDEN [facility] Encounter Notes: All associated encounter notes This section contains the clinical notes associated to the Encounter. Date/Time Encounter Note(s) Provider Source May 22, 2024 01:24 PM REPORT OF CONTACT: LOCAL TITLE: PATIENT CONTACT NOTE STANDARD TITLE: REPORT OF CONTACT DATE OF NOTE: MAY 22, 2024@13:24 ENTRY DATE: MAY 22, 2024@13:24:43 AUTHOR: LATRELL PACE EXP COSIGNER: URGENCY: STATUS: COMPLETED Patient contact Name of : MANUELVICENTEVALDEMARRUDY Name/Relationship of Contact if other than [place]: Date & Time of Contact: May@13:24 Type of Contact: Other Fax Reason for Contact: Referral to [facility] [address] [place], [place] [address] Golden Puga M.D. [facility] [address] [place] [phone] Thank you very much for your referral of Mr. Rudy Conner to [facility]. Clinical documentation completed at this time is attached or viewable in [facility] Care Link. Please note that any pending results or future clinical information will also be viewable in [facility] CareLink. Records place in PCp review Fax Folder for futher review. /zander/ LATRELL PACE LPN Signed: 05/22/2024 13:31 Receipt Acknowledged By: 05/22/2024 14:17 /zander/ GERRY FELICIANO PHYSICIAN LATRELL PACE OC
--- OUTSIDE RECORDS SUMMARY | 2024-06-19 13:38 | XMS_ITS | Encounter Summary ---
Author Name [facility] Address [address] [place] [address] Care Team Providers Care Crm Specialist Name Role Phone GERRY FELICIANO Primary Care Provider Unavailmally [facility] Insurance Providers: All historical and current [...] Patient's Relationship to Policy Dia HUMANA MCR ([facility]) MEDICARE ADVANTAGE MCR ([facility]) Oct 10, 2021 [id number] KLEARAMIS JAVED PATIENT HUMANA MCR ([facility]) MEDICARE ADVANTAGE MCR ([facility]) Oct 10, 2017 [id number] KLEARAMIS JAVED PATIENT HUMANA MCR (WNR) MEDICARE [facility] ([facility]) Oct 10, 2017 [id number] KLEPPARAMIS THOMPSON PATIENT MEDICA MCR ([facility]) MEDICARE ADVANTAGE MCR ([facility]) Oct 10, 2022 [id number] [phone] BRIANDA Veloz,ARAMIS PATIENT Selected Encounter This section includes the information on record at [place] for the Encounter. Date/Time Encounter Type Encounter Description Reason Pro vider Source IHE Encounter Template Text not used by [place] Advance Directives: All historical and current Section Date Range: From patient's date of to the date document was created. This section includes ALL of a patient's completed or amended [place] Advance and Rescinded Directives. The entries below indicate that a directive exists for the patient, but an actual copy is not included with this document. The data comes from all [place] facilities. Date Advance Directives Provider Source May 16, 2019 ADVANCE DIRECTIVE NOLAN MARTINEZ CB May 16, 2019 ADVANCE DIRECTIVE DISCUSSION DAMIAN MARTINEZ [facility] Oct 20, 2015 CLINICAL WARNING [place] [place]
--- OUTSIDE RECORDS SUMMARY | 2024-06-19 13:39 | XMS_ITS | Encounter Summary ---
Author Organization [facility] Address [address] [place] [address] Care Team Providers Care Manager Rfid Name Role Phone Unavailable Primary Care Provider Unavailabl e Reason for Referral * Outpatient (Routine) - Closed Specialty Diagnoses / Procedures Referred By Contac t Referred To Contact Radiation Oncology Sergio Foster M.D. [address] [place] [address] [facility] Region Referral ID Status Reason Start Date Expiration Date Visits Re quested Visits Authorized [id number] Closed 05/21/2024 11/20/2025 1 1 Scheduling Instructions After visit with Dr. Gage to see if patient can proceed with radiotherapy to the prostate * Outpatient (Routine) - Authorized Specialty Diagnoses / Procedures Referred By Contac t Referred To Contact Orthopedic Surgery Diagnoses Pain Hip Left Sergio Foster M.D. [address] [place] [address] Jean Marie Gage M.D. [address] [place] [phone] Referral ID Status Reason Start Date Expiration Date V isits Requested Visits Authorized [id number] Authorized 05/21/2024 11/20/2025 1 1 * Outpatient (Routine) - Closed Specialty Diagnoses / Procedures Referred By Contac t Referred To Contact Radiation Oncology Jesika Bragg P.A.-C., M.S. [address] [place] [phone] Sergio Foster M.D. [address] [place] [phone] Referral ID Status Reason Start Date Expiration Date Visits Re quested Visits Authorized [id number] Closed 05/09/2024 11/08/2025 1 1 Scheduling Instructions PSA, testosterone, and PSMA PET-CT prior at [facility] Reason for Visit * Outpatient (Routine) - Closed Specialty Diagnoses / Procedures Referred By William t Referred To Contact Radiation Oncology Jesika Bragg P.A.-C., M.SAdriano [address] [place] [phone] Sergio Foster M.D. [address] [place] [phone] Referral ID Status Reason Start Date Expiration Date Visits Re quested Visits Authorized [id number] Closed 05/09/2024 11/08/2025 1 1 Encounter Details Date Type Department Care Team (Latest Contact Info) Description 05/21/2024 9:12 AM CDT - 05/21/2024 2:11 PM CDT Hospital Encounter Department of Radiation Oncology in [place], [place] [address] [place] [phone] Sergio Foster M.D. [address] [place] [phone] Primary Malignant Neoplasm Of Prostate (HCC) (Primary Dx); Pain Hip Left Social History Tobacco Use Types Packs/Day Years Used Date Smoking Tobacco: Former Cigarettes 0.3 10 1 956 - 8946 Pipe Smokeless Tobacco: Never Dental Answer Date [...] Hip Left SUPERVISED BY: Sergio Foster M.D. ([phone]) HISTORY OF PRESENT ILLNESS Mr. Rudy May [...] Invasion Not Seen 12/12 cores positive (per [facility]) 04/02/[address] 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 Management options were discussed including active surveillance, radical prostatectomy, radiation therapy, cryotherapy, and androgen deprivation therapy. The patient was interested in external beam radiation. Referral to Radiation Oncology in [place]. 05/16/2024 Critical Imaging PSA 8.3 ng/mL. Testosterone [...] a referral back to Dr. Gage at [facility], who he has previously seen before. We will contact the patient once that visit has beencompleted to learn more about how he will proceed. The patient would like to proceed with radiation treatment when appropriate. After he has been evaluated by Dr. Gage we will determine when to bring him back for CT simulation and planning MRI at [facility]. Patient seen in collaboration with Dr. [...] APRN, C.NSaman, D.N.P. 05/21/2024 11:03 AM CDT [facility] [address] [place] [address] Associated attestation - Sergio Foster M.D. - [...] a left hip arthro[facility] done at the [facility] for 5 years ago. He has been [...] Gage. I ordered left hip x-rays at [facility] and a consultation with Dr. Gage. [...] 20 minutes caring for this patient including yteg-uw-okjq and boa-oukl-vv-face time. Signed by: Sergio Foster M.D. 05/21/24 2:10 PM CDT [facility] [place] documented in this encounter Miscellaneous Notes * Addendum Note - Irina Martines C.N.AAdriano - 05/21/2024 9:30 AM CDTEncounter addended by: Irina Martines C.N.AAdriano on: 05/21/2024 2:49 PM Actions taken: Letter saved documented in this encounter Plan of Treatment Upcoming Encounters Date Type Department Care Team (Late st Contact Info) Description 06/27/2024 1:45 PM CDT Appointment Department of Radiation Oncology in [place], [place] [address] [place] [phone] Sergoi Foster M.D. [address] [place] [address] Scheduled Referrals Name Type Priority Associated Diagnoses Order Schedule Radiation Oncology office visit (clinic) Outpatient Referral Routine Once for 1 Occurrences starting 05/21/2024 until 05/21/2024 External referral physician (non-[place]) Outpatient Referral Routine Pain Hip Left Ordered: 05/21/2024 Radiation Oncology office visit (clinic) Outpatient Referral Routine Expected: (Approximate), Expires: 05/21/2025 documented as of this encounter Visit Diagnoses Diagnosis Primary Malignant Neoplasm Of Prostate (HCC)- Primary Pain Hip Left documented in this encounter
--- OUTSIDE RECORDS SUMMARY | 2024-06-19 13:39 | XMS_ITS | Encounter Summary ---
Author Organization [facility] Address [address] [place] [address] Care Team Providers Care Spring Maker Name Role Phone Unavailable Primary Care Provider Unavailabl e Reason for Referral * Outpatient (Routine) - Closed Specialty Diagnoses / Procedures Referred By William blanca Referred To Contact Radiation Oncology Sergio Foster M.D. [address] [place] [address] [phone] [facility] Region Referral ID Status Reason Start Date Expiration Date Visits Re quested Visits Authorized [id number] Closed 05/29/2024 11/28/2025 1 1 Reason for Visit * Outpatient (Routine) - Closed Specialty Diagnoses / Procedures Referred By William blanca Referred To Contact Radiation Oncology Sergio Foster M.D. [address] [place] [address] [phone] [facility] Region Referral ID Status Reason Start Date Expiration Date Visits Re quested Visits Authorized [id number] Closed 05/29/2024 11/28/2025 1 1 Encounter Details Date Type Department Care Team (Latest Contact Info) Description 06/19/2024 11:06 AM CDT Hospital Encounter Department of Radiation Oncology in [place], [place] [address] [place] [phone] Sergio Foster M.D. [address] [place] [phone] Primary Malignant Neoplasm Of Prostate (HCC) (Primary Dx) Social History Tobacco Use Types Packs/Day Years Used Date Smoking Tobacco: Former Cigarettes 0.3 10 1 956 - 1966 Pipe Smokeless Tobacco: Never Dental Answer Date [...] 1.3 oz) 06/19/2024 11:21 AM CDT Height - - Body Mass Index - - documented in this encounter Plan of Treatment Upcoming Encounters Date Type Department Care Team (Late st Contact Info) Description 06/27/2024 1:45 PM CDT Appointment Department of Radiation Oncology in [place], [place] [address] [place] [address] Sergio Foster M.D. [address] [place] [address] Scheduled Referrals Name Type Priority Associated Diagnoses Order Schedule Radiation Oncology office visit (clinic) Outpatient Referral Routine Once for 1 Occurrences starting 06/19/2024 until 06/19/2024 documented as of this encounter Visit Diagnoses Diagnosis Primary Malignant Neoplasm Of Prostate (HCC)- Primary documented in this encounter
--- OUTSIDE RECORDS SUMMARY | 2024-06-19 13:39 | XMS_ITS | Encounter Summary ---
Author Organization [facility] Address [address] [place] [address] Care Team Providers Care Churn Tender Name Role Phone Unavailable Primary Care Provider Unavailabl e Reason for Referral * Outpatient (Routine) - Closed Specialty Diagnoses / Procedures Referred By William blanca Referred To Contact Radiation Oncology Jesika Bragg P.A.-C., M.S. [address] [place] [phone] Sergio Foster M.D. [address] [place] [phone] Referral ID Status Reason Start Date Expiration Date Visits Re quested Visits Authorized [id number] Closed 05/09/2024 11/08/2025 1 1 Scheduling Instructions PSA, testosterone, and PSMA PET-CT prior at [facility] * MRI/CAT/PET Scan (Routine) - Closed Specialty Diagnoses / Procedures Referred By William t Referred To Contact Diagnoses Primary Malignant Neoplasm Of Prostate (HCC) Procedures PET CT Skull to Thigh PSMA Jesika Bragg P.A.-C., M.S. [address] [place] [phone] [facility] Region Referral ID Status Reason Start Date Expiration Date Visits Re quested Visits Authorized [id number] Closed 05/09/2024 05/09/2025 1 1 Reason for Visit * Appointment Request (Routine) - Closed Specialty Diagnoses / Procedures Referred By William blanca Referred To Contact Radiation Oncology Diagnoses Primary Malignant Neoplasm Of Prostate (HCC) Tonio Bhatt M.D. [address] [phone] Referral ID Status Reason Start Date Expiration Date Visits Re quested Visits Authorized [id number] Closed 04/26/2024 04/26/2025 1 1 Encounter Details Date Type Department Care Team (Latest Contact Info) Description 05/09/2024 10:05 AM CDT - 05/18/2024 2:17 PM CDT Hospital Encounter Department of Radiation Oncology in [place], [place] [address] [place] [phone] Sergio Foster M.D. [address] [place] [address] Primary Malignant Neoplasm Of Prostate (HCC) (Primary Dx) Social History Tobacco Use Types Packs/Day Years Used Date Smoking Tobacco: Former Cigarettes 0.3 10 1 893 - 5180 Pipe Smokeless Tobacco: Never Tobacco Cessation:Counseling Given: [...] Prostate (HCC) SUPERVISED BY: Sergio Foster M.D. ([phone]) HISTORY OF PRESENT ILLNESS Mr. Rudy May [...] A. Left prostate biopsy Adenocarcinoma of prostate [place] Score 3+4=7 Involving 20-85% of the length of the cores Perineural Invasion Not Seen B. Right prostate biopsy Adenocarcinoma of prostate [place] Score 3+4=7 Involving 40-80% of the length of the cores Perineural Invasion Not Seen PIN4 staining shows negative basal markers with positive p504s C. Lesion 1 Adenocarcinoma of prostate [place] Score 3+3=6 Involving 75-80% of the length of two cores Perineural Invasion Not Seen 12/12 cores positive (per [facility]) 04/02/[address] 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 Management options were discussed including active surveillance, radical prostatectomy, radiation therapy, cryotherapy, and androgen deprivation therapy. The patient was interested in external beam radiation. Referral to Radiation Oncology in [place]. INTERVAL HISTORY: The patient was seen and [...] 9 grandchildren, and 2 great-grandchildren.They live in [place], [place] at the [facility] and he has an airplane. 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 He is a . OBJECTIVE BP 125/59 [...] the lab work and imaging done at [facility] and orders were placed. We also [...] M.D. and Dr. Cece Baig at the [place] in [place] I personally spent 55 minutes in care of the patient today. Time includes both non face to face andface to face patient care. Signed by: Jesika Bragg P.A.-C., M.S. 05/09/2024 12:49 PM CDT [facility] [address] [place] [address] Associated attestation - Sergio Foster M.D. - [...] left and the right as well as [place] 3+ 3 disease in the MRI guided [...] PSA, testosterone level,and PSMA PET/CT scan at [facility] [place] discuss the results and a finalize his plan of care. My thanks to Drs. Bhatt, Jovanni, and John for the opportunity to participate in this patient's care. I have spent 40 minutes caring for this patient including icpc-cd-rsti and nli-ikbn-zi-face time Signed by: Sergio Foster M.D. 05/18/24 2:13 PM CDT [facility] [place] documented in this encounter Miscellaneous Notes * Addendum Note - Irina Martines C.NAdrianoA. - 05/09/2024 10:30 AM CDTEncounter addended by: Irina Martines C.NPretty on: 05/21/2024 7:09 AM Actions taken: Letter saved documented in this encounter Plan of Treatment Upcoming Encounters Date Type Department Care Team (Late st Contact Info) Description 06/27/2024 1:45 PM CDT Appointment Department of Radiation Oncology in [place], [place] [address] [place] [address] Sergio Foster M.D. [address] [place] [address] Scheduled Referrals Name Type Priority Associated Diagnoses [...] metastatic prostate disease. Jesika Bragg P.A.-C. MAdrianoS. [facility] * Testosterone, Total by Mass Spectrometry, Serum (05/16/2024 10:34 AM CDT) [facility] Testosterone, Total by Mass Spectrometry, Serum 538 240 - 950 ng/dL 05/20/2024 3:07 PM CDT [facility] Comment: ----ADDITIONAL INFORMATION---- Testing performed by Liquid Chromatography-Tandem Mass Spectrometry (LC-MS/MS). This test was developed and its performance characteristics determined by [facility] in a manner consistent with CLIA requirements. This test has not been cleared or approved by the U.S. Food and Drug Administration. Blood (Blood, Venous) 05/16/2024 10:34 AM CDT 05/17/2024 8:56 AM CDT Jeskia Bragg P.A.-C., M.S. LAB BLOOD NON ADD-ON [facility] [address] [place] [address] [facility] [address] [place] [address] [place] [address] * (ABNORMAL) PSA (Prostate-Specific Antigen), Diagnostic (05/16/2024 [...] Bragg P.A.-C., M.S. LAB BLOOD ADD- ON [facility] [address] [place] [address], [facility] NPRG [facility] [address] [place] [address] documented in this encounter Visit Diagnoses Diagnosis Primary Malignant Neoplasm Of Prostate (HCC)- Primary Primary Malignant Neoplasm Of Prostate (HCC) documented in this encounter
--- OUTSIDE RECORDS SUMMARY | 2024-06-19 13:39 | XMS_ITS | Clinical Summary ---
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 180 Tablet 3 06/10/2023 Active aspirin (ECOTRIN) 81 mg enteric coated tablet Take 81 mg by mouth once daily with a meal. 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 [address] [place] [address] Joey Lopez MD Appointment 05/21/2024 Orders Only [facility] Scanner 1 scan: (1-Ord) [place], XR HIP LT MIN 2V, 05/21/2024 from Last 3 Months Immunizations Name Administration Dates Next Due AMB Influenza, IIV4 PF (=>6 mos Flulaval,Fluzone Fluarix)(Flu Clinic Only) 08/06/2014 COVID-19 vaccine ([employer] 30mcg/0.3mL) PF, MDV 07/29/2021,11/22/2020,11/01/2020 Influenza A (H1N1), [...] smoked a pipe while working at the [employer] Alcohol Use Standard Drinks/Week Comments Yes 7 [...] Comments Blood Pressure 128/80 11/29/2023 10:32 AM DEBONER Pulse 60 11/29/2023 10:32 AM DEBONER Temperature 36.2 ??C (97.1 ??F) 11/29/2022 4:41 PM CS T Respiratory Rate 16 11/29/2022 5:15 PM DEBONER Oxygen Saturation 96% 11/29/2023 10:32 AM DEBONER Inhaled Oxygen Concentration - - Weight 65.8 kg (145 lb) 08/29/2023 1:14 PM DEBONER Height 164.5 cm (5' 4.75) 06/10/2023 11:12 [...] history exists Medical Devices Implanted Type Area Donor Services Team Leader Device Identifier Shelf Expiration Date Model / Serial / Lot Mesh Inguinal Rt [id number] 3-D Max Mid Xlg - [id number] Implanted:Qty: 1 on 11/29/2022 by Elio Hilton MD at [facility] Right: Inguinal [employer] 07/07/2027 [id number] / / [id number] Mesh Inguinal Lt [id number] 3-D Max Mid Xlg - [id number] Implanted:Qty: 1 on 11/29/2022 by Elio Hilton MD at [facility] Left: Inguinal [employer] 06/17/2027 [id number] / / [id number] Procedures Procedure Name Priority Date/Time Associated Diagnosis Comments SCAN-RADIOLOGY REPORT 05/21/2024 12:00 AM CDT from Last 3 Months Results * SCAN-RADIOLOGY REPORT (05/21/2024 12:00 AM CDT) Anatomical Region Laterality Modality Other Scanner OTHER from Last 3 Months Advance Directives Documents on File Type Date Recorded Patient Wirer Helper Expl anation Healthcare Directive 02/17/2022 022 * Full Code (Latest Code Status on File) Date Activated Date Inactivated Comments 11/29/2022 12:13 PM 11/29/2022 7:27 PM Question Answer Comments Code Status Discussion: Reviewed Preferences Care Teams Bulk Station Operator Relationship Specialty [place] [address] [place] [address] PCP - General 08/21/10
--- OUTSIDE RECORDS SUMMARY | 2024-06-19 13:39 | XMS_ITS | Encounter Summary ---
Author Organization [facility] Address [address] [place] [address] Care Team Providers Care Residential Care Facility Manager Name Role Phone Unavailable Primary Care Provider Unavailabl e Reason for Referral * Radiation Therapy (Routine) - Authorized Specialty Diagnoses / Procedures Referred By William blanca Referred To Contact Diagnoses Primary Malignant Neoplasm Of Prostate (HCC) Procedures Management Visit Sergio Foster M.D. [address] [place] [phone] [facility] Referral ID Status Reason Start Date Expiration Date V isits Requested Visits Authorized [id number] Authorized 05/29/2024 05/29/2025 10 10 * Radiation Therapy (Routine) - Authorized Specialty Diagnoses / Procedures Referred By William blanca Referred To Contact Diagnoses Primary Malignant Neoplasm Of Prostate (HCC) Procedures Prior Auth Rad Tx OK IMRT SIMPLE OK GUIDANCE FOR LOC RAD TX OK IMRT RADIOTHERAPY PLAN IMRT Prostate Sergio Foster M.D. [address] [place] [address] [facility] Referral ID Status Reason Start Date Expiration Date V isits Requested Visits Authorized [id number] Authorized 06/13/2024 05/29/2025 26 26 * Outpatient (Routine) - Authorized Specialty Diagnoses / Procedures Referred By William blanca Referred To Contact Radiation Oncology Sergio Foster M.D. [address] [place] [address] [facility] Region Referral ID Status Reason Start Date Expiration Date V isits Requested Visits Authorized [id number] Authorized 05/29/2024 11/28/2025 10 10 * Specialty Diagnoses / Procedures Referred By Contac t Referred To Contact Sergio Foster M.D. [address] [place] [address] [facility] Region Referral ID [...] without IV Contrast Sergio Foster M.D. [address] [place] [address] [facility] Referral ID Status Reason Start Date Expiration Date V isits Requested Visits Authorized [id number] Authorized 05/29/2024 05/29/2025 1 1 * Specialty Diagnoses / Procedures Referred By Contac t Referred To Contact Sergio Foster M.D. 200 [place] [address] [facility] Region Referral ID [...] Procedures Management Visit Sergio Foster M.D. 200 [place] [address] [facility] Referral ID Status Reason Start Date Expiration Date V isits Requested Visits Authorized [id number] Authorized 05/29/2024 05/29/2025 10 10 * Radiation Therapy (Routine) - Closed Specialty Diagnoses / Procedures Referred By William blanca Referred To Contact Diagnoses Primary Malignant Neoplasm Of Prostate (HCC) Procedures Initial Rad Onc Treatment Planning CT Simulation without IV Contrast Sergio Foster M.D. [address] [place] [address] [facility] Referral ID Status Reason Start Date Expiration Date Visits Re quested Visits Authorized [id number] Closed 05/29/2024 05/29/2025 1 1 * Radiation Therapy (Routine) - Closed Specialty Diagnoses / Procedures Referred By William blanca Referred To Contact Diagnoses Primary Malignant Neoplasm Of Prostate (HCC) Procedures Prior Auth Rad Tx OK IMRT SIMPLE OK GUIDANCE FOR LOC RAD TX OK IMRT RADIOTHERAPY PLAN IMRT Prostate Sergio Foster M.D. [address] [place] [address] [facility] Referral ID Status Reason Start Date Expiration Date Visits Re quested Visits Authorized [id number] Closed 06/13/2024 05/29/2025 1 1 * Outpatient (Routine) - Closed Specialty Diagnoses / Procedures Referred By William blanca Referred To Contact Radiation Oncology Sergio Foster M.D. [address] [place] [address] [facility] Referral ID Status Reason Start Date Expiration Date Visits Re quested Visits Authorized [id number] Closed 05/29/2024 11/28/2025 1 1 * Outpatient (Routine) - Closed Specialty Diagnoses / Procedures Referred By William blanca Referred To Contact Radiation Oncology Sergio Foster M.D. [address] [place] [address] [facility] Referral ID Status Reason Start Date Expiration Date Visits Re quested Visits Authorized [id number] Closed 05/21/2024 11/20/2025 1 1 Scheduling Instructions After visit with Dr. Gage to see if patient can proceed with radiotherapy to the prostate Reason for Visit * Outpatient (Routine) - Closed Specialty Diagnoses / Procedures Referred By William blanca Referred To Contact Radiation Oncology Sergio Foster M.D. [address] [place] [address] [facility] Referral ID Status Reason Start Date Expiration Date Visits Re quested Visits Authorized [id number] Closed 05/21/2024 11/20/2025 1 1 Encounter Details Date Type Department Care Team (Latest Contact Info) Description 05/29/2024 4:00 PM CDT - 05/29/2024 4:31 PM CDT Hospital Encounter Department of Radiation Oncology in [place], [place] [address] [place] [phone] Sergio Foster M.D. [address] [place] [phone] Primary Malignant Neoplasm Of Prostate (HCC) (Primary Dx); Trochanteric Bursitis Left Hip Social History Tobacco Use Types Packs/Day Years Used Date Smoking Tobacco: Former Cigarettes 0.3 10 1 956 - 6425 Pipe Smokeless Tobacco: Never Dental Answer Date [...] Prostate (HCC) 2. Trochanteric Bursitis Left Hip [id number] PHONE VISIT This visit was performed by [...] A. Left prostate biopsy Adenocarcinoma of prostate Almont Score 3+4=7 Involving 20-85% of the length of the cores Perineural Invasion Not Seen B. Right prostate biopsy Adenocarcinoma of prostate Almont Score 3+4=7 Involving 40-80% of the length of the cores Perineural Invasion Not Seen PIN4 staining shows negative basal markers with positive p504s C. Lesion 1 Adenocarcinoma of prostate Almont Score 3+3=6 Involving 75-80% of the length of two cores Perineural Invasion Not Seen 12/12 cores positive (per [facility]) 04/02/[address] 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 Management options were discussed including active surveillance, radical prostatectomy, radiation therapy, cryotherapy, and androgen deprivation therapy. The patient was interested in external beam radiation. Referral to Radiation Oncology in [place]. 05/16/2024 Critical Imaging PSA 8.3 ng/mL. Testosterone [...] center and then a planning MRI at [facility] just after our visit on the same day. Verbalized satisfaction with this plan and was appreciative of the call. Signed by: Sergio Foster M.D. 05/29/24 4:25 PM CDT [facility] Radiation Therapy [facility] documented in this encounter Plan of Treatment Upcoming Encounters Date Type Department Care Team (Late st Contact Info) Description 06/27/2024 1:45 PM CDT Appointment Department of Radiation Oncology in [place], [place] [address] [place] [address] Sergio Foster M.D. [address] [place] [address] Pending Results Name Type Priority Associated Diagnoses Date/Time Initial Rad Onc Treatment Planning CT Simulation without IV Contrast Procedural Imaging Routine Primary Malignant Neoplasm Of Prostate (HCC) 06/19/2024 12:30 PM CDT Scheduled Orders Name Type Priority Associated Diagnoses [...]
--- OUTSIDE RECORDS SUMMARY | 2024-06-19 13:39 | XMS_ITS | Encounter Summary ---
Author Organization [facility] Address [address] [place] [address] Care Team Providers Care Editor At Large Name Role Phone Unavailable Primary Care Provider Unavailabl e Reason for Referral * MRI/CAT/PET Scan (Routine) - Closed Specialty Diagnoses / Procedures Referred By Contac t Referred To Contact Diagnoses Primary Malignant Neoplasm Of Prostate (HCC) Procedures PET CT Skull to Thigh PSMA Jesika Bragg P.A.-C., M.S. [address] [place] [phone] [facility] Region Referral ID Status Reason Start Date Expiration Date Visits Re quested Visits Authorized [id number] Closed 05/09/2024 05/09/2025 1 1 Reason for Visit * MRI/CAT/PET Scan (Routine) - Closed Specialty Diagnoses / Procedures Referred By Contac t Referred To Contact Diagnoses Primary Malignant Neoplasm Of Prostate (HCC) Procedures PET CT Skull to Thigh PSMA Jesika Bragg P.A.-C., M.S. [address] [place] [phone] [facility] Region Referral ID Status Reason Start Date Expiration Date Visits Re quested Visits Authorized [id number] Closed 05/09/2024 05/09/2025 1 1 Encounter Details Date Type Department Care Team (Latest Contact Info) Description 05/16/2024 11:15 AM CDT - 05/16/2024 11:59 PM CDT Hospital Encounter Department of Radiology in [address] [place] [address] Jesika Bragg P.A.-C., M.S. [address] [place] [phone] Primary Malignant Neoplasm Of Prostate (HCC) Discharge Disposition: Home or Self Care Social History Tobacco Use Types Packs/Day Years Used Date Smoking Tobacco: Former Cigarettes 0.3 10 1 966 - 1884 Pipe Smokeless Tobacco: Never Dental Answer Date [...] CDT Appointment Department of Radiation Oncology in [address] [phone] Sergio Foster M.D. [address] [place] [phone] documented as of this encounter Procedures Procedure [...] metastatic prostate disease. Jesika Bragg P.A.-C., M.S. [facility] documented in this encounter Visit [...]
--- OUTSIDE RECORDS SUMMARY | 2024-06-19 13:39 | XMS_ITS | Encounter Summary ---
Author Organization [facility] Address [address] [place] [address] Care Team Providers Care Integration Consultant Name Role Phone Unavailable Primary Care Provider Unavailabl e Encounter Details Date Type Department Care Team (Latest Contact Info) Description 05/16/2024 10:14 AM CDT - 05/16/2024 11:14 AM CDT Hospital Encounter Department of Laboratory Medicine in [place], [place] [address] [place] [phone] Jesika Bragg P.A.-C., M.S. [address] [place] [phone] Primary Malignant Neoplasm Of Prostate (HCC) Discharge Disposition: Home or Self Care Social History Tobacco Use Types Packs/Day Years Used Date Smoking Tobacco: Former Cigarettes 0.3 10 1 594 - 8342 Pipe Smokeless Tobacco: Never Dental Answer Date [...] CDT Appointment Department of Radiation Oncology in [address] [phone] Sergio Foster M.D. [address] [place] [phone] documented as of this encounter Procedures Procedure [...] - 950 ng/dL 05/20/2024 3:07 PM CDT [facility] Comment: ----ADDITIONAL INFORMATION---- Testing performed by Liquid Chromatography-Tandem Mass Spectrometry (LC-MS/MS). This test was developed and its performance characteristics determined by [facility] in a manner consistent with CLIA requirements. This test has not been cleared or approved by the U.S. Food and Drug Administration. Blood (Blood, Venous) 05/16/2024 10:34 AM CDT 05/17/2024 8:56 AM CDT Jesika Bragg P.A.-C., M.S. LAB BLOOD NON ADD-ON ED [facility] [address] [place] [address] [facility] [address] [place] [address] [place] [address] * (ABNORMAL) PSA (Prostate-Specific Antigen), Diagnostic (05/16/2024 10:34 AM CDT) Prostate-Specific Ag 8.3(H) <=7.2 ng/mL 05/16/2024 11:36 AM CDT [facility] Comment: ----ADDITIONAL INFORMATION---- The testing method is [...] P.A.-C., M.S. LAB BLOOD ADD- ON [facility] [address] [place] [address], [facility] [address] [place] [address] documented in this encounter Visit Diagnoses Diagnosis Primary Malignant Neoplasm Of Prostate (HCC) documented in this encounter
== END 2024-06-19 13:32 | disposition home or self-care (01) ==
LOC: MRI 13:33
PROVIDERS: PCP Family Medicine; Visit Provider Internal Medicine
DX: C61 Malignant neoplasm of prostate (principal)
CPT/HCPCS: 72195

== ENCOUNTER 2024-10-24 10:23 | Outpatient (CLI) | payer MEDICARE, SELFPAY ==
[2024-10-24 11:40] LABS: PSA Diagnostic* 2.13 ng/mL (0.10-4.00)
== END 2024-10-24 10:24 | disposition home or self-care (01) ==
PROVIDERS: PCP Family Medicine; Visit Provider Internal Medicine
DX: C61 Malignant neoplasm of prostate (principal)
CPT/HCPCS: 36415; 84153

== ENCOUNTER 2024-11-05 17:12 | Outpatient (CLI) | payer MEDICARE, SELFPAY | END 2024-11-05 17:13 | disposition home or self-care (01) | LOC: AMB 11-11 10:10 | PROVIDERS: PCP Family Medicine; Visit Provider Family Medicine | DX: R55 Syncope and collapse (principal) | CPT/HCPCS: A0425; A0427 ==

== ENCOUNTER 2025-01-21 10:35 | Outpatient (CLI) | payer MEDICARE, SELFPAY ==
[2025-01-21 12:24] LABS: PSA Diagnostic* 1.37 ng/mL (0.10-4.00)
== END 2025-01-21 10:36 | disposition home or self-care (01) ==
PROVIDERS: PCP Family Medicine; Visit Provider Internal Medicine
DX: C61 Malignant neoplasm of prostate (principal)
CPT/HCPCS: 36415; 84153

== ENCOUNTER 2025-07-15 09:58 | Outpatient (CLI) | payer MEDICARE, SELFPAY ==
[2025-07-15 12:04] LABS: PSA Diagnostic* 0.73 ng/mL (0.10-4.00)
== END 2025-07-15 09:59 | disposition home or self-care (01) ==
LOC: NPINS 10:00
PROVIDERS: PCP Family Medicine; Visit Provider Physician Assistant
DX: C61 Malignant neoplasm of prostate (principal)
CPT/HCPCS: 84153